=== PATIENT | female | born 1950 | race Caucasian/White ===

== ENCOUNTER 2020-04-29 13:51 | Outpatient (CLI) | payer MEDICARE, SELFPAY ==
--- NOTE | ~2020-04-29 | XR_ITS ---
EXAMINATION: XR clavicle BI INDICATION: History of right clavicle fracture TECHNIQUE: Two views of each clavicle are obtained. COMPARISON: 08/16/2019 FINDINGS: There is a chronic fracture of the right mid clavicle. The distal fracture fragment is bi manager nically inferiorly displaced by approximately 1.6 cm relative to the proximal fragment. Alignment at the right acromioclavicular joint appears normal. No acute fracture is identified. The left clavicle is unremarkable. IMPRESSION: 1. Chronic right clavicle fracture with chronic inferior displacement of the distal fracture fragment . Reviewed, dictated and finalized at location A. IMPRESSION: 1. Chronic right clavicle fracture with chronic inferior displacement of the di stal fracture fragment.
== END 2020-04-29 13:52 | disposition home or self-care (01) ==
LOC: ANHIMG 13:55
PROVIDERS: PCP Internal Medicine; Visit Provider Nurse Practitioner
DX: M89.8X1 Other specified disorders of bone, shoulder (principal); S42.001A Fracture of unspecified part of right clavicle, initial encounter for closed fracture; X58.XXXA Exposure to other specified factors, initial encounter
CPT/HCPCS: 73000

== ENCOUNTER 2020-06-22 12:44 | Outpatient (CLI) | payer MEDICARE, SELFPAY ==
--- NOTE | ~2020-06-22 | MR_ITS ---
EXAMINATION: MR shoulder RT wo con DATE: 06/22/2020 13:34 INDICATION: Right shoulder pain post chronic right clavicle fracture and rotator cuff tear. TECHNIQUE: Magnetic resonance imaging (MRI) of the right shoulder was performed without intravenous c ontrast. Sequences included axial PD-weighted FS FSE, coronal oblique PD-weighted FS FSE, coronal obl ique T2-weighted FS FSE, sagittal PD-weighted FS FSE, and sagittal T1-weighted SE. COMPARISON: None. FINDINGS: Coracoacromial arch: The acromion undersurface is curved in morphology (type II). The coracoacromial ligament is normal. M inimal acromioclavicular osteoarthritis. Rotator cuff: Mild supraspinatus and infraspinatus tendinopathy with a couple small partial-thickness intrasubstanc e tears along the superior facet footplate of the posterior supraspinatus tendon and middle facet aaron tplate of the anterior infraspinatus tendon. The tears each measures up to 3 mm AP and involves the p roximal one third of the tendon thickness. Mild tendinopathy without discrete tear at the cephalad as pect of the distal subscapularis tendon. The teres minor tendon is normal. Normal rotator cuff muscle bulk and signal. Biceps tendon, glenoid labrum and glenohumeral cartilage: Complete avulsion of the long head biceps tendon from its glenoid attachment with retraction of the t endon below the level of the intertubercular groove. There is a linear fluid signal labral tear exten ding from the 11:00-9:00 position of the posterior to posterior superior glenoid. This appears to inv olve small portion of the cartilage along the rim of the glenoid. More amorphous increased intrasubst ance signal at the superior glenoid labrum consistent with well-defined degenerative tearing. Additio nal labral degeneration with marginal osteophytes along the posterior inferior glenoid which replaces the majority of the labral tissue. Partial-thickness cartilage loss with generally smooth chondral s urface along the cephalad half of the glenoid and inferomedial aspect of the humeral head. Fluid: Physiologic amount of fluid in the glenohumeral joint and biceps tendon sheath. No loose osteochondra l bodies. Small amount of fluid in the subacromial/subdeltoid bursa consistent with mild bursitis. Bones: Chronic nonunited mid right clavicle fracture located near the lateral most insertion of the intact c oracoclavicular ligament. The distal margin of the fracture is not included within the [id number]-aaks. There is a residual small fluid collection located at the fracture defect. There is likely chronic p artial tear of the originating right pectoralis major muscle at the site of the fracture defect with mild muscular edema. IMPRESSION: 1. Chronic nonunited mid right clavicle fracture with small fluid collection at the fracture defect a nd localized partial tear of the originating pectoralis major muscle located at the fracture. Althoug h chronic there is residual reactive soft tissue edema centered around the fracture. 2. Mild glenohumeral osteoarthritis with superior to posterior inferior labral tear/degeneration. 3. Mild rotator cuff tendinopathy with a couple very small mild partial-thickness intrasubstance tear s at the greater tuberosity insertion of the posterior supraspinatus and anterior infraspinatus tendo ns. 4. Complete avulsion and distal retraction of the long head biceps tendon. Reviewed, dictated and finalized at location H. ODS STUDY ANALYST IMPRESSION: 1. Chronic nonunited mid right clavicle fracture with small fluid collection at the fracture defect and localized partial tear of the originating pectoralis m ajor muscle located at the fracture. Although chronic there is residual reactiv e soft tissue edema centered around the fracture. 2. Mild glenohu
== END 2020-06-22 12:45 | disposition home or self-care (01) ==
PROVIDERS: PCP Internal Medicine; Visit Provider Orthopaedic Surgery
DX: M19.011 Primary osteoarthritis, right shoulder (principal)
CPT/HCPCS: 73221

== ENCOUNTER 2020-11-11 14:17 | Outpatient (CLI) | payer MEDICARE, SELFPAY ==
--- NOTE | ~2020-11-11 | CT_ITS ---
EXAMINATION: CT facial bones w con DATE: 11/11/2020 14:49 INDICATION: Masses at the temples bilaterally. TECHNIQUE: Computed tomography (CT) of the facial bones and maxillofacial region was performed with 7 5 mL Omnipaque 350 intravenous contrast. Automated exposure control and iterative reconstruction tech Kabbageque were employed. The dose-length product was 303.17 mGy-cm. COMPARISON: Head CT 08/16/2019 FINDINGS: There is soft tissue attenuation in the subcutaneous fat of the cheeks. There is mild ather osclerosis in proximal right internal carotid artery with 0% stenosis relative to normal distal arter y lumen diameter. Left cervical carotid artery is normal. There are old healed fractures of the fransisca bular condyles bilaterally. There is severe cervical spondylosis. IMPRESSION: 1. Soft tissue attenuation in the subcutaneous fat of the cheeks, that may be inflammation/edema or c hanges of cosmetic procedure. Reviewed, dictated and finalized at location A. IMPRESSION: 1. Soft tissue attenuation in the subcutaneous fat of the cheeks, that may be i nflammation/edema or changes of cosmetic procedure.
[2020-11-11 14:38] LABS: Estimated Glomerular Filt Rate 49
== END 2020-11-11 14:18 | disposition home or self-care (01) ==
LOC: ANHIMG 14:18
PROVIDERS: PCP Internal Medicine; Visit Provider Nurse Practitioner
DX: R22.0 Localized swelling, mass and lump, head (principal)
CPT/HCPCS: 70487; Q9967

== ENCOUNTER → 2021-05-07 00:23 | Outpatient (CLI) | payer MEDICARE, SELFPAY ==
[2021-05-07 18:06] LABS: SARS-CoV-2 RNA PCR Negative
== END ==
PROVIDERS: PCP Internal Medicine; Visit Provider Internal Medicine Gastroenterology
DX: Z01.812 Encounter for preprocedural laboratory examination (principal); Z20.822 Contact with and (suspected) exposure to COVID-19
CPT/HCPCS: C9803; U0003; U0005

== ENCOUNTER 2021-05-11 01:53 | Day surgery (SDC) | payer MEDICARE, SELFPAY ==
[2021-05-05 10:15] VITALS: BMI 24.2
--- NOTE | 2021-05-11 08:47 | WPDANESEPPF ---
Anes - Initial Pre Proc Eval Procedure: Operation Date: 05/11/21 10:00 Proposed Procedures p Screening Colonoscopy - Juancarlos Mercado MD Date/Time: 05/11/21 08:47 Surgeon: Juancarlos Mercado MD Pre Op Diagnosis: neoplasm screening Patient Data Age: 70 Gender: F Height: 1.68 m Weight: 68 kg Allergies Allergy/AdvReac Type Severity Reaction Status Date / Time No Known Allergies Allergy Verified 11/09/20 13:58 Home Medications Medication Instructions Recorded Confirmed Type apixaban 5 mg tablet 5 mg PO DAILY tablet 09/29/19 05/05/21 History ascorbic acid (vitamin C) 1,000 mg 1 gm PO DAILY 09/29/19 05/05/21 History tablet cholecalciferol (vitamin D3) 125 5,000 unit PO DAILY 09/29/19 05/05/21 History mcg (5,000 unit) capsule isosorbide dinitrate 30 mg tablet 30 mg PO DAILY tablet 09/29/19 05/05/21 History lactobacillus combination no.8 3 3,000 mmu cells PO DAILY 09/29/19 05/05/21 History billion cell capsule vitamin B complex 1 cap PO DAILY 09/29/19 05/05/21 History semaglutide 0.5 mg SUB-Q WEEKLY ml 04/23/20 05/05/21 History topiramate 25 mg sprinkle capsule 25 mg PO DAILY 06/14/20 05/05/21 History biotin 1 mg capsule 1 mg PO DAILY 11/09/20 05/05/21 History flaxseed oil 1,000 mg capsule 1,000 mg PO DAILY 11/09/20 05/05/21 History fluticasone propionate 50 1 spray INTRANASAL DAILY 11/09/20 05/05/21 History mcg/actuation nasal spray,suspension lamotrigine 100 mg tablet 200 mg PO BID tablet 03/21/21 05/05/21 History trazodone 100 mg tablet 100 mg PO .HS #90 tablet 03/21/21 05/05/21 Rx ferrous sulfate [FeroSul] mg 05/05/21 History Patient hx anesthesia problems: none Family hx anesthesia problems: none Results Review: All pre-operative results and documents have been reviewed as part of the pre-operative evaluation. [facility] Past Medical History Medical History Anxiety Arthritis Bleeding gums Bleeding nose Chronic headaches Dizziness DVT (deep venous thrombosis) Ear pain Hearing loss Pulmonary embolism Rheumatoid arthritis Seasonal allergies Seizures Shortness of breath Wears glasses Surgical History Surgical History H/O total hysterectomy 1993 H/O: hysterectomy History of cosmetic plastic surgery Abdominoplasty, face lift, and neck lift 2013 History of gastrectomy lap sleeve gastectomy History of tonsillectomy 1952 Hx of cataract surgery Family History Family History Father Malignant neoplasm of prostate Other Neuropathy Social History Social History Smoking packs per day: 2 Smoking cigarettes per day: 40.0 Years smoked: 40 Smoking pack-years: 80.00 Smoking status: Former smoker Tobacco type: cigarettes Smoking end date: 07/30/06 Alcohol intake: current Drinks per week: 2 Alcohol use details: occasional Substance use: never Substance use type: does not use Living arrangements: alone Gender identity (if verbalized by the patient): Female Spiritual care concerns: No Anes - Eval Final PreProcedure Day of Procedure 05/11/21 08:47 Patient weight: obese Heart: regular rate and rhythm Lungs: clear to auscultation and normal air movement Airway: Mallampati scale class II Neurological: alert and oriented Last oral intake: >/= 8 hours ASA classification: III Emergent: no Anesthetic plan: proceed Anesthesia type and monitoring: general GIVS Results Review: All pre-operative results and documents have been reviewed as part of the pre-operative evaluation. Informed Consent: The patient's anesthetic plan and its attendant risks and benefits were discussed with the patient/family/POA. Questions were solicited and answers provided to the satisfaction of the patient/family/POA.
[2021-05-11] MEDS: LACTATED RINGERS 1,000 ML 150 ML IV CONT (09:02)
[2021-05-11 09:06] VITALS: BP 106/69; PULSE 56; RESP 18; TEMP 36.1; O2SAT 100
--- NOTE | 2021-05-11 09:13 | WPDGICN ---
Assessment and Plan Assessment and plan (1) Screening for colon cancer: Code(s): Z12.11 - Encounter for screening for malignant neoplasm of colon Status: Acute Assessment and Plan: Patient presents for screening colonoscopy. She reports is been 15 years since her last exam. Further recommendations will be given after endoscopy. GI Consult Note Consult date/time: 05/11/21 09:13 HPI: Layla Reece is a 70 year old female Presents for screening colonoscopy. Patient reports that her current weight appetite bowel movements are normal. She denies abdominal pain. She reports her last colonoscopy was 15 years ago. Family history is noncontributory. Patient presents today for screening colonoscopy. Patient has a distant history of a sleeve gastrectomy. Review of Systems Review of Systems: All systems reviewed & are unremarkable except as noted in HPI and below PMFSH Past Medical History Medical History Anxiety Arthritis Bleeding gums Bleeding nose Chronic headaches Dizziness DVT (deep venous thrombosis) Ear pain Hearing loss Pulmonary embolism Rheumatoid arthritis Seasonal allergies Seizures Shortness of breath Wears glasses Surgical History Surgical History H/O total hysterectomy 1993 H/O: hysterectomy History of cosmetic plastic surgery Abdominoplasty, face lift, and neck lift 2013 History of gastrectomy lap sleeve gastectomy History of tonsillectomy 1952 Hx of cataract surgery Family History Family History Father Malignant neoplasm of prostate Other Neuropathy Social History Social History Smoking packs per day: 2 Smoking cigarettes per day: 40.0 Years smoked: 40 Smoking pack-years: 80.00 Smoking status: Former smoker Tobacco type: cigarettes Smoking end date: 07/30/06 Alcohol intake: current Drinks per week: 2 Alcohol use details: occasional Substance use: never Substance use type: does not use Living arrangements: alone Gender identity (if verbalized by the patient): Female Spiritual care concerns: No Meds Home Medications and Allergies Home Medications Medication Instructions Recorded Confirmed Type apixaban 5 mg tablet 5 mg PO DAILY tablet 09/29/19 05/11/21 History ascorbic acid (vitamin C) 1,000 mg 1 gm PO DAILY 09/29/19 05/05/21 History tablet cholecalciferol (vitamin D3) 125 5,000 unit PO DAILY 09/29/19 05/05/21 History mcg (5,000 unit) capsule isosorbide dinitrate 30 mg tablet 30 mg PO DAILY tablet 09/29/19 05/05/21 History lactobacillus combination no.8 3 3,000 mmu cells PO DAILY 09/29/19 05/05/21 History billion cell capsule vitamin B complex 1 cap PO DAILY 09/29/19 05/05/21 History semaglutide 0.5 mg SUB-Q WEEKLY ml 04/23/20 05/05/21 History topiramate 25 mg sprinkle capsule 25 mg PO DAILY 06/14/20 05/05/21 History biotin 1 mg capsule 1 mg PO DAILY 11/09/20 05/05/21 History flaxseed oil 1,000 mg capsule 1,000 mg PO DAILY 11/09/20 05/05/21 History fluticasone propionate 50 1 spray INTRANASAL DAILY 11/09/20 05/05/21 History mcg/actuation nasal spray,suspension lamotrigine 100 mg tablet 200 mg PO BID tablet 03/21/21 05/11/21 History trazodone 100 mg tablet 100 mg PO .HS #90 tablet 03/21/21 05/05/21 Rx ferrous sulfate [FeroSul] mg 05/05/21 History Allergies Allergy/AdvReac Type Severity Reaction Status Date / Time No Known Allergies Allergy Verified 05/11/21 09:03 Vital Signs Vital Signs - 24 hr 05/11/21 09:06 Temperature 97 F L Pulse Rate 56 L Respiratory Rate 18 Blood Pressure 106/69 Pulse Oximetry 100 Exam Narrative: Physical exam reveals patient to be alert. Vital signs stable. HEENT exam is unremarkable. Patient is anicteric. Lungs are cl
[2021-05-11 09:46] VITALS: BP 103/58; PULSE 54; RESP 34; O2SAT 98
[2021-05-11 09:56] VITALS: BP 108/64; PULSE 56; RESP 15; O2SAT 98
[2021-05-11 10:06] VITALS: BP 126/68; PULSE 57; RESP 14; O2SAT 99
== END 2021-05-11 10:20 | disposition home or self-care (01) ==
PROVIDERS: PCP Internal Medicine; Visit Provider Internal Medicine Gastroenterology
PROC: 0DJD8ZZ Inspection of Lower Intestinal Tract, Via Natural or Artificial Opening Endoscopic (ICD-10-PCS; CPT 45378; principal; 2021-05-11 10:00)
DX: Z12.11 Encounter for screening for malignant neoplasm of colon (principal); D12.5 Benign neoplasm of sigmoid colon; K64.8 Other hemorrhoids; K57.30 Diverticulosis of large intestine without perforation or abscess without bleeding; M06.9 Rheumatoid arthritis, unspecified; G40.909 Epilepsy, unspecified, not intractable, without status epilepticus; F41.9 Anxiety disorder, unspecified; Z86.718 Personal history of other venous thrombosis and embolism; Z86.711 Personal history of pulmonary embolism; Z98.84 Bariatric surgery status; Z87.891 Personal history of nicotine dependence; Z79.01 Long term (current) use of anticoagulants
CPT/HCPCS: 45385; 88305; J7120

== ENCOUNTER 2021-06-09 08:32 | Outpatient (CLI) | payer MEDICARE, SELFPAY ==
--- NOTE | ~2021-06-09 | DEXA_ITS ---
Bone Density Report Name: Layla Reece Age: 70 Sex: Female Ethnicity: White Date of : 1950 Indication: postmenopausal; height loss; seizure disorder; hysterectomy; Referring Provider: Shakira Caro Study: Bone densitometry was performed. Exam Date: June 09, 2021 Accession number: [id number] Bone Density: Region BMD T-score Z-score Classification AP Spine (L1-L4) 0.951 -0.9 1.4 Normal Femoral Neck (Left) 0.731 -1.1 0.9 Osteopenia Total Hip (Left) 0.869 -0.6 1.1 Normal Total Hip Bilateral Avg 0.846 -0.8 0.9 Normal Femoral Neck (Right) 0.737 -1.0 1.0 Normal Total Hip (Right) 0.822 -1.0 0.7 Normal World Health Organization criteria for BMD impression classify patients as: Normal (T-score at or above -1.0), Osteopenia (T-score between -1.0 and -2.5), or Osteoporosis (T-score at or below -2.5). 10-year Fracture Risk(1): Major Osteoporotic Fracture 9.5% Hip Fracture 1.3% Reported Risk Factors: [place] (), Neck BMD=0.731, BMI=23.9 (1) FRAX(R) Version 3.08. Fracture probability calculated for an untreated patient. Fracture probability may be lower if the patient has received treatment. Clinical Information Provided by Patient: Has used the following medications: Vitamin D Has the following medical conditions: Any Seizure Disorders, Hysterectomy Patient maximum height was 68 Menopause Age: 45 No regular weight bearing exercise Drinks caffeinated beverages Onset of menses at age 10 Number of children 3 Impression: The patient has low bone mass, based on the Left Femoral Neck T-score. The patient has an estimated ten-year risk of hip fracture of 1.3% and an estimated ten-year risk of major fracture of 9.5%, based on the WHO FRAX algorithm. Discussion: BONE DENSITY IS LOW AT ONE OR MORE SKELETAL SITES. This patient's lowest T-score is low at one or more skeletal sites. It meets the World Health Organization's (WHO) criteria for ?low bone mass? (T-score between -1.0 and -2.5). The patient's 10-year risk of fracture as calculated by FRAX is less than the threshold where pharmacological therapy is recommended by the National Osteoporosis Foundation (NOF). However, all treatment decisions require clinical judgment and consideration of individual patient factors, including patient preferences, comorbidities, previous drug use, risk factors not captured in the FRAX model (e.g., frailty, falls, vitamin D deficiency, increased bone turnover, interval significant decline in bone density) and possible under or overestimation of fracture risk by FRAX. The patient should follow a healthful lifestyle (good nutrition with adequate calcium and vitamin D, and appropriate weight-bearing exercise). Follow-Up: Consider repeating this study in 2 to 3 years to reassess this patient's status, or sooner
--- NOTE | ~2021-06-09 | MM_ITS ---
EXAMINATION: MM screening anoop BI w gabe HISTORY: Screening mammogram TECHNIQUE: Craniocaudal and mediolateral oblique 3-D tomosynthesis images were obtained and synthetic 2-D images were generated. CAD analysis was submitted and interpreted. COMPARISON: No prior mammogram is available for comparison at this institution. BREAST PARENCHYMAL COMPOSITION: There are scattered areas of fibroglandular density. FINDINGS: There is no evidence of suspicious mass, calcification, or architectural distortion to sugg est malignancy in either breast. There has been no suspicious interval change. IMPRESSION: 1. No mammographic evidence of malignancy. 2. Recommend routine screening mammography in one year. BI-RADS Category 1: Negative Reviewed, dictated and finalized at location A. R PILOT
== END 2021-06-09 08:33 | disposition home or self-care (01) ==
LOC: ANHIMG 08:37
PROVIDERS: PCP Internal Medicine; Visit Provider Clinical Nurse Specialist
DX: Z12.31 Encounter for screening mammogram for malignant neoplasm of breast (principal); Z78.0 Asymptomatic menopausal state; M85.852 Other specified disorders of bone density and structure, left thigh
CPT/HCPCS: 77063; 77067; 77080

== ENCOUNTER 2021-06-14 14:19 | Emergency (ER) | payer MEDICARE, SELFPAY ==
--- NOTE | ~2021-06-14 | CT_ITS ---
EXAMINATION: CT brain wo con EXAM DATE: 06/14/2021 15:03 INDICATION: Possible seizure . History of seizures. TECHNIQUE: Spiral CT of the head was performed without contrast. Axial, coronal and sagittal images were reviewed. The dose-length product (DLP) for this examination was 605.33 mGy-cm. The exposure w as tailored according to patient size, and iterative reconstruction (ASIR) was used as additional dos e reduction technique. Comparison is made to prior examination from 08/16/2019. FINDINGS: There is no acute intraparenchymal hemorrhage. No evidence of intraparenchymal brain mass lesion. No evidence of acute infarction. Please note that initial head CT has limited sensitivity f or small or acute infarctions. There is mild periventricular and subcortical hypodensity, nonspecific but probably related to small vessel ischemic disease. There is mild prominence of the sulci and v entricles related to cerebral atrophy. There is intracranial carotid arteriosclerosis. There are n o extra-axial collections. There is no mass effect or midline shift. Patient has had bilateral ocul ar lens surgery. Soft tissue is unremarkable. Mild right maxillary sinus and bilateral ethmoid muco periosteal thickening. IMPRESSION: 1. No acute intracranial findings. 2. Chronic age related findings. Reviewed, dictated and finalized at location B. GENCY MEDICINE NURSE PRACTITIONER
[2021-06-14 14:26] VITALS: BP 131/83; PULSE 102; RESP 16; TEMP 37.7; O2SAT 98
[2021-06-14] MEDS: LORazepam INJ (*CRX) 2 MG/ML VIAL (14:44)
[2021-06-14 15:08] LABS: Basophils Percent Auto 0.3 % (0.2-1.2); Eosinophils Percent Auto 0.2 % (0-4.4); Hematocrit 36.2 % (37.0-47.0); Hemoglobin 12.2 g/dL (12.0-15.0); Immature Granulocyte Absolute 0.03 K/mm3 (0.00-0.031); Immature Granulocyte Percent A 0.5 % (0-0.5); Lymphocytes Percent Auto 13.4 % (18.3-44.2); Mean Corpuscular HGB Conc 33.7 g/dl (32-36); Mean Corpuscular Hemoglobin 28.8 pg (26-34); Mean Corpuscular Volume 85.4 fl (80-100); Mean Platelet Volume 9.5 fl (7.4-10.4); Monocytes Absolute Auto 0.5 K/mm3 (0.1-0.6); Monocytes Percent Auto 7.6 % (2.6-8.5); Neutrophils Absolute Auto 4.6 K/mm3 (1.3-6.7); Platelet Count Result 280 k/mm3 (150-375); Red Blood Count 4.24 M/mm3 (4.2-5.4); Red Cell Distribution Width 13.2 % (11.5-14.5)
[2021-06-14 15:17] LABS: Alanine Aminotransferase 24 U/L (4-35); Albumin Level 4.6 g/dL (3.5-5.1); Alkaline Phosphatase 72 U/L (38-126); Anion Gap 10 mmol/L (8-16); Aspartate Amino Transferase 38 U/L (14-36); Bilirubin,Total 0.4 mg/dL (0.2-1.3); Blood Urea Nitrogen 11 mg/dL (7-17); Calcium 9.6 mg/dL (8.4-10.2); Carbon Dioxide 20 mmol/L (22-30); Chloride 108 mmol/L (98-107); Estimated CRCL calculation 32 ml/min; Estimated Glomerular Filt Rate 49; Glucose 112 mg/dL (65-110); Potassium 3.9 mmol/L (3.4-5.0); Sodium 138 mmol/L (137-145)
[2021-06-14 16:24] VITALS: BP 111/66; PULSE 57; RESP 14; O2SAT 97
--- NOTE | 2021-06-14 16:36 | ED.GENADULT ---
HPI - General Adult General Chief complaint: Seizure Stated complaint: SZ, Screaming Time Seen by Provider: 06/14/21 14:47 Source: patient, EMS and RN notes reviewed Mode of arrival: EMS Limitations: clinical condition History of Present Illness HPI narrative: Patient 70 years old white female brought to the emergency room by ambulance for possible post ictal. Patient son at the bedside telling me that patient start screaming, holding her head by both hands, unable to tolerate noise or light when the house seat pack inspector came to inspect the house for sale. Also telling me that selling the house is very stressful to her. Nobody has seen the patient having seizure. History of seizure. Currently patient is screaming, facing down in bed, putting hands on her ears, does not communicate with any staff members or responding to our questions. Related Data Home Medications Medication Instructions Recorded Confirmed apixaban 5 mg tablet 5 mg PO DAILY tablet 09/29/19 05/11/21 ascorbic acid (vitamin C) 1,000 mg 1 gm PO DAILY 09/29/19 05/05/21 tablet cholecalciferol (vitamin D3) 125 5,000 unit PO DAILY 09/29/19 05/05/21 mcg (5,000 unit) capsule isosorbide dinitrate 30 mg tablet 30 mg PO DAILY tablet 09/29/19 05/05/21 lactobacillus combination no.8 3 3,000 mmu cells PO DAILY 09/29/19 05/05/21 billion cell capsule vitamin B complex 1 cap PO DAILY 09/29/19 05/05/21 semaglutide 0.5 mg SUB-Q WEEKLY ml 04/23/20 05/05/21 topiramate 25 mg sprinkle capsule 25 mg PO DAILY 06/14/20 05/05/21 biotin 1 mg capsule 1 mg PO DAILY 11/09/20 05/05/21 flaxseed oil 1,000 mg capsule 1,000 mg PO DAILY 11/09/20 05/05/21 fluticasone propionate 50 1 spray INTRANASAL DAILY 11/09/20 05/05/21 mcg/actuation nasal spray,suspension lamotrigine 100 mg tablet 200 mg PO BID tablet 03/21/21 05/11/21 ferrous sulfate [FeroSul] mg 05/05/21 Allergies Allergy/AdvReac Type Severity Reaction Status Date / Time No Known Allergies Allergy Verified 05/11/21 09:03 Review of Systems Review of Systems: ROS unobtainable: Yes unobtainable due to medical condition PMFSH Past Medical History Medical History Anxiety Arthritis Bleeding gums Bleeding nose Chronic headaches Dizziness DVT (deep venous thrombosis) Ear pain Hearing loss Pulmonary embolism Rheumatoid arthritis Seasonal allergies Seizures Shortness of breath Wears glasses Surgical History Surgical History H/O total hysterectomy 1993 H/O: hysterectomy History of cosmetic plastic surgery Abdominoplasty, face lift, and neck lift 2013 History of gastrectomy lap sleeve gastectomy History of tonsillectomy 1952 Hx of cataract surgery Family History Family History Father Malignant neoplasm of prostate Other Neuropathy Social History Social History Smoking packs per day: 2 Smoking cigarettes per day: 40.0 Years smoked: 40 Smoking pack-years: 80.00 Smoking status: Former smoker Tobacco type: cigarettes Smoking end date: 07/30/06 Alcohol intake: current Drinks per week: 2 Alcohol use details: occasional Substance use: never Substance use type: does not use Gender identity (if verbalized by the patient): Female Spiritual care concerns: No Exam Narrative: General appearance: Well-developed, well-nourished, screaming, does not answer any questions Skin: Normal color Head: Normocephalic, nontraumatic Eyes: Unable to examine. Patient facing down in bed holding hands on ears ENT: Unable to examine Neck: Unable to examine Chest and respiratory: Airway patent, no respiratory distress, no accessory muscle use Heart: Regular rate/rhythm Abdomen: Unable to examine s Vascular: Unable to examine Musculoskeletal: Move all extremities Neurologic: Alert, not re
[2021-06-14 17:30] VITALS: BP 131/70; PULSE 67; RESP 18; O2SAT 98
== END 2021-06-14 17:33 | disposition home or self-care (01) ==
PROVIDERS: Emergency Provider Emergency Medicine; PCP Internal Medicine
DX: F41.0 Panic disorder [episodic paroxysmal anxiety] (principal); R56.9 Unspecified convulsions; M19.90 Unspecified osteoarthritis, unspecified site; Z86.718 Personal history of other venous thrombosis and embolism; Z86.711 Personal history of pulmonary embolism; M06.9 Rheumatoid arthritis, unspecified; Z98.49 Cataract extraction status, unspecified eye; Z87.891 Personal history of nicotine dependence; Z79.01 Long term (current) use of anticoagulants; Z79.899 Other long term (current) drug therapy; Z98.84 Bariatric surgery status
CPT/HCPCS: 36415; 70450; 80053; 85025; 96374; 99284; J2060

== ENCOUNTER 2023-08-29 06:52 | Outpatient (CLI) | payer MEDICARE, SELFPAY ==
[2023-08-29 07:36] LABS: Appearance Urine Cloudy (Clear); Bacteria Urine 4+ /hpf; Bilirubin Urine Negative (Negative); Blood Urine Negative (Negative); Color Urine Yellow (Yellow); Glucose Urine UA Negative (Negative); Ketones Urine Negative (Negative); Leukocyte Esterase Ur 3+ LEU/UL (Negative); Nitrate Urine Positive (Negative); Non Pathogenic Casts 0-2; Protein Urine Negative (Negative); RBC Urine 0-2 /hpf (0-2); Specific Grav Ur 1.016 (1.001-1.035); Squamous Epithelial Cell Urine None seen /hpf (Few); Urobilinogen Urine 0.2 mg/dL (<2.0); WBC Urine 51-100 /hpf
[2023-08-29 07:46] LABS: Cholesterol 213 mg/dL (0-200); HDL Direct 77 mg/dL; Triglycerides 77 mg/dL (<150)
[2023-08-29 07:50] LABS: Add Urine Microscopic? YES
[2023-08-29 07:57] LABS: LDL Cholesterol Direct 104 mg/dL
== END 2023-08-29 06:53 | disposition home or self-care (01) ==
LOC: ANHLAB 06:55
PROVIDERS: PCP Internal Medicine; Visit Provider Clinical Nurse Specialist
DX: E78.89 Other lipoprotein metabolism disorders (principal); Z13.220 Encounter for screening for lipoid disorders; R39.9 Unspecified symptoms and signs involving the genitourinary system; G47.00 Insomnia, unspecified
CPT/HCPCS: 36415; 80061; 81001; 84443; 87077; 87086; 87186

== ENCOUNTER 2023-09-28 15:03 | Outpatient (CLI) | payer MEDICARE, SELFPAY ==
[2023-09-28 15:29] LABS: Appearance Urine Clear (Clear); Bacteria Urine None Seen /hpf; Bilirubin Urine Negative (Negative); Blood Urine Negative (Negative); Color Urine Yellow (Yellow); Glucose Urine UA Negative (Negative); Ketones Urine Negative (Negative); Leukocyte Esterase Ur 1+ LEU/UL (Negative); Need Manual Microscopic Reviewed; Nitrate Urine Negative (Negative); Non Pathogenic Casts 0-2; Protein Urine Negative (Negative); RBC Urine 0-2 /hpf (0-2); Specific Grav Ur 1.012 (1.001-1.035); Squamous Epithelial Cell Urine None seen /hpf (Few); Urobilinogen Urine 0.2 mg/dL (<2.0); WBC Urine 0-5 /hpf; pH Urine 6.5 (5.0-9.0)
[2023-09-28 15:55] LABS: Add Urine Microscopic? YES
== END 2023-09-28 15:04 | disposition home or self-care (01) ==
LOC: ANHLAB 15:05
PROVIDERS: PCP Internal Medicine; Visit Provider Clinical Nurse Specialist
DX: N39.0 Urinary tract infection, site not specified (principal)
CPT/HCPCS: 81001

== ENCOUNTER 2023-10-09 13:44 | Outpatient (CLI) | payer MEDICARE, SELFPAY ==
[2023-10-09 14:26] LABS: Appearance Urine Cloudy (Clear); Bacteria Urine None Seen /hpf; Bilirubin Urine Negative (Negative); Blood Urine Non-Hemolyzed Trace (Negative); Color Urine Yellow (Yellow); Glucose Urine UA Negative (Negative); Ketones Urine Negative (Negative); Leukocyte Esterase Ur 3+ LEU/UL (Negative); Nitrate Urine Negative (Negative); Non Pathogenic Casts 0-2; Protein Urine Negative (Negative); RBC Urine 0-2 /hpf (0-2); Specific Grav Ur 1.009 (1.001-1.035); Squamous Epithelial Cell Urine None seen /hpf (Few); Urobilinogen Urine 0.2 mg/dL (<2.0); WBC Urine >100 /hpf (0-3)
[2023-10-09 14:37] LABS: Add Urine Microscopic? YES
== END 2023-10-09 13:45 | disposition home or self-care (01) ==
PROVIDERS: PCP Internal Medicine; Visit Provider Clinical Nurse Specialist
DX: R39.9 Unspecified symptoms and signs involving the genitourinary system (principal)
CPT/HCPCS: 87077; 87086; 87088; 87186

== ENCOUNTER 2024-04-17 09:39 | Outpatient (CLI) | payer MEDICARE, SELFPAY ==
[2024-04-17 13:42] LABS: Basophils Percent Auto 0.3 % (0.2-1.2); Eosinophils Absolute Auto 0.1 K/mm3 (0-0.3); Hematocrit 38.7 % (37.0-47.0); Immature Granulocyte Absolute 0.01 K/mm3 (0.00-0.031); Immature Granulocyte Percent A 0.2 % (0-0.5); Lymphocytes Absolute Auto 1.37 K/mm3 (0.9-3.2); Lymphocytes Percent Auto 21.5 % (18.3-44.2); Mean Corpuscular Volume 90.4 fl (80-100); Mean Platelet Volume 10.3 fl (7.4-10.4); Monocytes Absolute Auto 0.5 K/mm3 (0.1-0.6); Monocytes Percent Auto 8.2 % (2.6-8.5); Neutrophils Absolute Auto 4.3 K/mm3 (1.3-6.7); Neutrophils Percent Auto 67.8 % (45.5-73.1); Platelet Count Result 306 k/mm3 (150-375); Red Blood Count 4.28 M/mm3 (4.2-5.4); Red Cell Distribution Width 14.6 % (11.5-14.5); White Blood Count 6.4 K/mm3 (4.5-10.0)
[2024-04-17 13:51] LABS: Alanine Aminotransferase 29 U/L (6-35); Albumin Level 4.5 g/dL (3.5-5.1); Alkaline Phosphatase 84 U/L (38-126); Anion Gap 7 mmol/L (4-12); Aspartate Amino Transferase 62 U/L (14-36); Bilirubin,Total 0.3 mg/dL (0.2-1.3); Blood Urea Nitrogen 14 mg/dL (7-17); Calcium 9.9 mg/dL (8.4-10.2); Carbon Dioxide 31 mmol/L (22-30); Chloride 100 mmol/L (98-107); Cholesterol 211 mg/dL (0-200); Estimated Glomerular Filt Rate 54; Glucose 83 mg/dL (65-110); HDL Direct 83 mg/dL; Potassium 4.9 mmol/L (3.4-5.0); Sodium 138 mmol/L (137-145); Triglycerides 115 mg/dL (<150)
[2024-04-17 13:59] LABS: LDL Cholesterol Direct 103 mg/dL
[2024-04-17 14:12] LABS: Thyroid Stimulating Hormone < 0.015 uIU/mL (0.465-4.680)
[2024-04-17 14:32] LABS: Vitamin D 25 Hydroxy 87.7 ng/mL
== END 2024-04-17 09:40 | disposition home or self-care (01) ==
LOC: ANHGOSHLAB 09:40
PROVIDERS: PCP Internal Medicine; Visit Provider Clinical Nurse Specialist
DX: D64.9 Anemia, unspecified (principal); E55.9 Vitamin D deficiency, unspecified; G47.00 Insomnia, unspecified; R53.83 Other fatigue; Z13.220 Encounter for screening for lipoid disorders; R79.89 Other specified abnormal findings of blood chemistry
CPT/HCPCS: 36415; 80053; 80061; 82306; 84443; 85025

== ENCOUNTER 2024-04-24 13:00 | Outpatient (CLI) | payer MEDICARE, SELFPAY | END 2024-04-24 13:01 | disposition home or self-care (01) | LOC: ANHGOSHLAB 13:01 | PROVIDERS: PCP Internal Medicine; Visit Provider Clinical Nurse Specialist | DX: G47.00 Insomnia, unspecified (principal); R79.89 Other specified abnormal findings of blood chemistry | CPT/HCPCS: 36415; 84443 ==

== ENCOUNTER 2024-04-29 15:32 | Outpatient (CLI) | payer MEDICARE, SELFPAY ==
--- NOTE | ~2024-04-29 | XR_ITS ---
[id number] Ordering provider: DWAYNE Velez-C History: . M79.672 - Pain in left foot . Comparison: None. FINDINGS: BONES: Possibility of fracture in the distal metaphysis of the fifth metatarsal bone is not excluded. Follow-up advised.. Flat foot is noted. Calcaneus spur. Ossification of the insertion of the tendo A chilles. JOINT SPACES: Narrowing of the proximal and distal interphalangeal joints. No tarsal coalition. SOFT TISSUES: Normal. IMPRESSION: Possibility of fracture in the distal metaphysis of the fifth metatarsal bone is not excluded. Follow -up advised. Polyarticular osteoarthritic changes. Reviewed, dictated and finalized at location A. IMPRESSION: Possibility of fracture in the distal metaphysis of the fifth metatarsal bone i s not excluded. Follow-up advised. Polyarticular osteoarthritic changes.
== END 2024-04-29 15:33 | disposition home or self-care (01) ==
LOC: ANHIMG 15:33
PROVIDERS: PCP Internal Medicine; Visit Provider Clinical Nurse Specialist
DX: M19.072 Primary osteoarthritis, left ankle and foot (principal)
CPT/HCPCS: 73630

== ENCOUNTER 2024-06-03 09:19 | Emergency (ER) | payer MEDICARE, SELFPAY ==
[2024-06-03] VITALS (7 sets, daily range): BP systolic 97–128; BP diastolic 59–69; PULSE 51–66; RESP 12–19; TEMP 36.6; O2SAT 93–100
--- NOTE | ~2024-06-03 | XR_ITS ---
XR chest 2V Ordering provider: Delmi Stevens PA-C History: 73 years Female with . cp AND SOB . Comparison: August 16, 2019 FINDINGS: MEDIASTINUM: The cardiac silhouette is not enlarged. LUNGS: No effusions or pneumothorax. Prominent bronchovascular markings in the lower lobes are noted. Possibility of bronchitis, versus early bronchopneumonia is not excluded. Follow-up advised. Underlying emphysematous changes. OTHER: No free air under the diaphragm. Degenerative changes of the spine. IMPRESSION: Prominent bronchovascular markings in the lower lobes which may indicate bronchitis versus early bron chopneumonia. Follow-up advised. Reviewed, dictated and finalized at location A. RN IMPRESSION: Prominent bronchovascular markings in the lower lobes which may indicate bronch itis versus early bronchopneumonia. Follow-up advised.
--- NOTE | 2024-06-03 09:26 | ECG_ITS ---
Test Date: 2024-06-03 09:28:41 Measurements Intervals [place] Rate: 61 P: 59 CT: 163 QRS: 0 QRSD: 106 T: 42 QT: 433 QTc: 440 Interpretive Statements SINUS RHYTHM NORMAL ECG No previous ECG available for comparison Electronically Signed On 06-03-2024 09:54:06 PRECISION DANCER by Cecil Uribe D.O.
--- NOTE | 2024-06-03 09:31 | ED_ITS ---
HPI - Chest Pain General Chief Complaint: Chest Pain Stated Complaint: CP x 30 min Time Seen by Provider: 06/03/24 09:21 Source: patient Mode of arrival: EMS Limitations: no limitations History of Present Illness HPI narrative: Patient is a 73-year-old female, past medical history of epilepsy on lamotrigine and topiramate, history of PE on Eliquis, who presents the ED via EMS with report of chest pain. Patient reports she was playing a computer game around 830a.m. this morning she began to have sharp midsternal CP. EMS was contacted. By the time EMS arrived, pain had subsided on its own, but patient prompted here for further evaluation. Patient currently rates her pain a 2/10 and more of a soreness in her midsternal chest. She did report feeling slight radiation of chest pain into neck. She also reported having mild shortness breath and lightheadedness. Denies nausea, vomiting, abdominal pain, lower extremity pain or swelling, recent cough or cold symptoms. Patient sees Dr. Huddleston with Cardiology at [facility]. Related Data Home Medications Medication Instructions Recorded Confirmed apixaban 5 mg tablet (Eliquis) 5 mg PO DAILY 09/29/19 05/01/24 ascorbic acid (vitamin C) 1,000 mg 1 gm PO DAILY 09/29/19 05/01/24 tablet cholecalciferol (vitamin D3) 125 5,000 unit PO DAILY 09/29/19 05/01/24 mcg (5,000 unit) capsule isosorbide dinitrate 30 mg tablet 30 mg PO DAILY 09/29/19 05/01/24 lactobacillus combination no.8 3 3,000 mmu cells PO DAILY 09/29/19 05/01/24 billion cell capsule (Adult Probiotic) vitamin B complex 1 cap PO DAILY 09/29/19 05/01/24 flaxseed oil 1,000 mg capsule 1,000 mg PO DAILY 11/09/20 05/01/24 lamotrigine 100 mg tablet 200 mg PO BID 03/21/21 05/01/24 multivitamin 1 tablet PO DAILY 03/30/22 05/01/24 semaglutide 0.25 mg or 0.5 mg (2 1 mg subcut WEEKLY 03/30/22 05/01/24 mg/1.5 mL) subcutaneous pen injector ([employer]) topiramate 25 mg sprinkle capsule 25 mg PO BID 03/30/22 05/01/24 fluticasone propionate 50 1 spray intranasal DAILY PRN 04/09/23 05/01/24 mcg/actuation nasal spray,suspension (Allergy Relief (fluticasone)) Allergies Allergy/AdvReac Type Severity Reaction Status Date / Time No Known Allergies Allergy Verified 05/01/24 14:53 Review of Systems Review of Systems: All systems reviewed & are unremarkable except as noted in HPI. All systems reviewed & are unremarkable except as noted in HPI and below PMFSH Past Medical History Medical History Anxiety Arthritis Bleeding gums Bleeding nose Chronic headaches Dizziness DVT (deep venous thrombosis) Ear pain Hearing loss History of anesthesia reaction Osteoporosis Pulmonary embolism Rheumatoid arthritis Seasonal allergies Seizures Shortness of breath Wears glasses Surgical History Surgical History H/O total hysterectomy 1993 H/O: hysterectomy History of cosmetic plastic surgery Abdominoplasty, face lift, and neck lift 2013 History of gastrectomy lap sleeve gastectomy History of tonsillectomy 1952 Hx of cataract surgery Family History Family History Father Malignant neoplasm of prostate Other Neuropathy Social History Social History Smoking packs per day: 2 Smoking cigarettes per day: 40.0 Years smoked: 40 Smoking pack-years: 80.00 Smoking status: Former smoker Tobacco type: cigarettes Smoking end date: 07/30/06 Alcohol intake: current Drinks per week: 2 Alcohol use details: occasional Substance use: never Substance use type: does not use Lack of Transportation: No Lack of Food: Never True Current Housing: I Have Housing Concerned About Future Housing: No Difficulty Paying Gas/Electric Bills: No Difficulty Paying for Meds: No Currently Unemployed: No Difficulty w/ Childcare or Family Care: No Living arrangements: alone Gender identity (if verbalized by the patient): Female Spiritual care concerns: No Exam Narrative: GENERAL: Elderly but well appearing, well-nourished, non-toxic, in no acute distress. HEAD: Normocephalic, atraumatic. RESPIRATORY: Airway patent, respirations nonlabored. Clear to auscultation bilaterally, no rales, rhonchi, wheezing. CARDIOVASCULAR: Regular rate and rhythm without murmurs, rubs, or gallops. MUSCULOSKELETAL: Moves all extremities. No gross deformities. Mild TTP over lower sternum, reproducing pain. No peripheral edema. SKIN: Warm, dry, normal color. NEURO: A&O X3. Speech clear. PSYCHIATRIC: Appropriate mood and affect. Normal interaction. Course Vital Signs Vital signs: Vital Signs Temperature 97.9 F 06/03/24 09:19 Pulse Rate 66 06/03/24 09:19 Respiratory Rate 18 06/03/24 09:19 Blood Pressure 128/69 06/03/24 09:19 Pulse Oximetry 95 06/03/24 09:19 Oxygen Delivery Room Air 06/03/24 09:19 Temperature 97.9 F 06/03/24 09:19 Pulse Rate 54 L 06/03/24 13:03 Respiratory Rate 17 06/03/24 13:03 Blood Pressure 97/59 L 06/03/24 13:03 Pulse Oximetry 95 06/03/24 13:03 Oxygen Delivery Room Air 06/03/24 09:32 MDM - Chest Pain MDM Narrative Medical decision making narrative: EKG nonischemic. No concerning ST changes. Baseline troponin is undetectable. Given onset of chest pain this morning, will obtain 3 hour troponin. BNP is within normal limits. Chest x-ray w/ possible bronchitis. Patient has not had any recent cough or cold sx's, fevers, congestion, low suspicion for this. Patient is on Eliquis and compliant with this. No tachycardia/hypoxia noted today. Low suspicion for PE. Remainder basic laboratory studies are unremarkable. HEART score =3. 3hr troponin also undetectable. Patient has been resting comfortably throughout ED stay. She denies further chest pain. I have low suspicion for ACS at this time. Discussed discharge home versus admission for continued workup. Patient feels comfortable going home. 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 Patient voiced understanding. Again feels comfortable going home. Discharged in stable condition. Blood pressure was noted to be slightly low in the upper 90s systolic. Patient reports this is normal for her. Consistent with previous records in the ED. she was given fluids in the ED. Medical Records Data Attestation: I reviewed the patient's medical records. Lab Data Attestation: I reviewed the patient's lab results. 06/03/24 09:35 06/03/24 09:35 Labs: Lab Results 06/03/24 06/03/24 06/03/24 Range/Units 09:35 09:36 12:16 WBC 7.3 (4.5-10.0) K/mm3 RBC 4.32 (4.2-5.4) M/mm3 Hgb 12.3 (12.0-15.0) g/dL Hct 37.7 (37.0-47.0) % MCV 87.3 (80-100) fl MCH 28.5 (26-34) pg MCHC 32.6 (32-36) g/dl RDW 14.1 (11.5-14.5) % Plt Count 270 (150-375) k/mm3 MPV 9.3 (7.4-10.4) fl Immature Gran % (Auto) 0.8 H (0-0.5) % Neut % (Auto) 64.9 (45.5-73.1) % Lymph % (Auto) 25.4 (18.3-44.2) % [place] % (Auto) 7.4 (2.6-8.5) % Eos % (Auto) 1.0 (0-4.4) % Baso % (Auto) 0.5 (0.2-1.2) % Lymph # (Auto) 1.85 (0.9-3.2) K/mm3 [place] # (Auto) 0.5 (0.1-0.6) K/mm3 Eos # (Auto) 0.1 (0-0.3) K/mm3 Baso # (Auto) 0.0 (0.0-0.1) K/mm3 Abs Immat Gran (auto) 0.06 H (0.00-0.031) K/mm3 Absolute Neuts (auto) 4.7 (1.3-6.7) K/mm3 Absolute Nucleated RBC 0.000 (0.0-0.012) K/mm3 Nucleated RBC % 0.0 (0.0-0.2) % PT 14.9 H (11.1-14.7) Seconds INR 1.1 APTT 26.6 (22.3-36.8) Seconds Sodium 135 L (137-145) mmol/L Potassium 4.0 (3.4-5.0) mmol/L Chloride 100 (98-107) mmol/L Carbon Dioxide 27 (22-30) mmol/L Anion Gap 8 (4-12) mmol/L BUN 17 (7-17) mg/dL Creatinine 0.90 (0.7-1.0) mg/dL Estim Creat Clear Calc 44 ml/min Estimated GFR > 60 (59 - ) Glucose 98 (65-110) mg/dL Calcium 9.6 (8.4-10.2) mg/dL Total Bilirubin 0.2 (0.2-1.3) mg/dL AST 31 (14-36) U/L ALT 31 (6-35) U/L Alkaline Phosphatase 74 (38-126) U/L Troponin I < 0.012 < 0.012 (0.000-0.034) ng/mL NT-Pro-B Natriuret Pep 67 (19.9-100) pg/mL Total Protein 7.0 (6.3-8.2) g/dL Albumin 4.4 (3.5-5.1) g/dL Lipase 203 (23-300) U/L Imaging Data Attestation: I personally reviewed and interpreted this imaging study as follows: Radiologist's impression: ITS Impressions Chest X-Ray 06/03/24 10:25 IMPRESSION: Prominent bronchovascular markings in the lower lobes which may indicate bronchitis versus early bronchopneumonia. Follow-up advised. ECG Data EKG #1: Attestation: I personally reviewed and interpreted this ECG as follows: ECG completion date: 06/03/24 ECG completion time: 09:28 EKG Interpretation: normal rate (61), sinus rhythm and no ST changes Discharge Plan Discharge Clinical Impression: Atypical chest pain Patient Disposition: Home, Self-Care Condition: Stable Instructions: Antibiotic Form, Angina (ED), Chest Pain (ED) Additional Instructions: Your workup here was reassuring against a cardiac cause of your chest pain. Follow-up with your primary care doctor and middle school special education teacher for further evaluation. Call offices to make follow-up appointment. Return to the ED if you experience worsening or severe pain, severe shortness of breath, severe dizziness, unable to keep down food or drink, passing out, pain or swelling in legs, or any other symptoms of concern. Prescriptions: No Action Eliquis 5 mg tablet 5 mg PO DAILY isosorbide dinitrate 30 mg tablet 30 mg PO DAILY cholecalciferol (vitamin D3) 125 mcg (5,000 unit) capsule 5,000 unit PO DAILY vitamin B complex Capsule 1 cap PO DAILY ascorbic acid (vitamin C) 1,000 mg tablet 1 gm PO DAILY Adult Probiotic 3 billion cell capsule 3,000 mmu cells PO DAILY Rx Instructions: administer with a meal flaxseed oil 1,000 mg capsule 1,000 mg PO DAILY Rx Instructions: administer with a meal fluticasone propionate [Allergy Relief (fluticasone)] 50 mcg/actuation spray,suspension 1 spray intranasal DAILY PRN Rx Instructions: administer into each nostril multivitamin Tablet 1 tablet PO DAILY Ozempic 0.25 mg or 0.5 mg(2 mg/1.5 mL) pen injector 1 mg SUB-Q WEEKLY topiramate 25 mg capsule, sprinkle 25 mg PO BID Patient Comments: per patient home medication provided 06/14/20 lamotrigine 100 mg tablet 200 mg PO BID trazodone 100 mg tablet 200 mg PO QHS PRN (Reason: insomnia) Qty: 60 2RF Follow-up/Referrals: Claus Watson DO [Primary Care Provider] - Time of Disposition: 12:56 Quality HEART score for chest pain patients History: moderately suspicious ECG: normal Age: > or = to 65 years Risk factors: no risk factors known Troponin: < or = to 1x normal limit Heart score: 3
[2024-06-03 09:47] LABS: Basophils Percent Auto 0.5 % (0.2-1.2); Eosinophils Absolute Auto 0.1 K/mm3 (0-0.3); Hematocrit 37.7 % (37.0-47.0); Hemoglobin 12.3 g/dL (12.0-15.0); Immature Granulocyte Absolute 0.06 K/mm3 (0.00-0.031); Immature Granulocyte Percent A 0.8 % (0-0.5); Lymphocytes Absolute Auto 1.85 K/mm3 (0.9-3.2); Lymphocytes Percent Auto 25.4 % (18.3-44.2); Mean Corpuscular HGB Conc 32.6 g/dl (32-36); Mean Corpuscular Hemoglobin 28.5 pg (26-34); Mean Corpuscular Volume 87.3 fl (80-100); Mean Platelet Volume 9.3 fl (7.4-10.4); Monocytes Absolute Auto 0.5 K/mm3 (0.1-0.6); Monocytes Percent Auto 7.4 % (2.6-8.5); Neutrophils Absolute Auto 4.7 K/mm3 (1.3-6.7); Neutrophils Percent Auto 64.9 % (45.5-73.1); Platelet Count Result 270 k/mm3 (150-375); Red Blood Count 4.32 M/mm3 (4.2-5.4); Red Cell Distribution Width 14.1 % (11.5-14.5); White Blood Count 7.3 K/mm3 (4.5-10.0)
[2024-06-03] MEDS: ACETAMINOPHEN 500 MG TABLET 1000 MG PO (09:48)
[2024-06-03 10:00] LABS: Alanine Aminotransferase 31 U/L (6-35); Albumin Level 4.4 g/dL (3.5-5.1); Alkaline Phosphatase 74 U/L (38-126); Anion Gap 8 mmol/L (4-12); Aspartate Amino Transferase 31 U/L (14-36); Bilirubin,Total 0.2 mg/dL (0.2-1.3); Blood Urea Nitrogen 17 mg/dL (7-17); Calcium 9.6 mg/dL (8.4-10.2); Carbon Dioxide 27 mmol/L (22-30); Chloride 100 mmol/L (98-107); Estimated CRCL calculation 44 ml/min; Estimated Glomerular Filt Rate > 60; Glucose 98 mg/dL (65-110); Lipase 203 U/L (23-300); Sodium 135 mmol/L (137-145)
[2024-06-03 10:06] LABS: INR 1.1; Prothrombin Time 14.9 Seconds (11.1-14.7)
[2024-06-03 10:07] LABS: Partial Thromboplastin Time 26.6 Seconds (22.3-36.8)
[2024-06-03 10:11] LABS: Troponin I < 0.012 ng/mL (0.000-0.034)
[2024-06-03 10:17] LABS: NT Pro B Type Natriuretic Pept 67 pg/mL (19.9-100)
[2024-06-03] MEDS: SODIUM CHLORIDE 0.9% IV 1,000 ML 999 ML IV CONT (11:17)
--- NOTE | 2024-06-03 12:12 | ECG_ITS ---
Test Date: 2024-06-03 12:29:06 Measurements Intervals [place] Rate: 54 P: 63 ID: [id number] QRS: 19 QRSD: 100 T: 44 QT: 482 QTc: 458 Interpretive Statements SINUS BRADYCARDIA BORDERLINE ECG Compared to ECG 06/03/2024 09:28:41 HEART RATE HAS DECREASED Electronically Signed On 06-03-2024 12:53:38 MOBILE TESTER by Cecil Uribe D.O.
[2024-06-03 12:45] LABS: Troponin I < 0.012 ng/mL (0.000-0.034)
== END 2024-06-03 13:15 | disposition home or self-care (01) ==
PROVIDERS: Emergency Provider Physician Assistant; PCP Internal Medicine
DX: R07.89 Other chest pain (principal); R06.02 Shortness of breath; G40.909 Epilepsy, unspecified, not intractable, without status epilepticus; M81.0 Age-related osteoporosis without current pathological fracture; M06.9 Rheumatoid arthritis, unspecified; Z98.84 Bariatric surgery status; Z86.711 Personal history of pulmonary embolism; Z86.718 Personal history of other venous thrombosis and embolism; Z87.891 Personal history of nicotine dependence; Z98.49 Cataract extraction status, unspecified eye; Z90.710 Acquired absence of both cervix and uterus; Z79.899 Other long term (current) drug therapy; Z79.01 Long term (current) use of anticoagulants; Z79.85 Long-term (current) use of injectable non-insulin antidiabetic drugs; R00.1 Bradycardia, unspecified
CPT/HCPCS: 36415; 71046; 80053; 83690; 83880; 84484; 85025; 85610; 85730; 93005; 96360; 99284; A9270; J7030

== ENCOUNTER 2024-12-16 08:52 | Outpatient (CLI) | payer MEDICARE, SELFPAY ==
--- NOTE | ~2024-12-16 | DEXA_ITS ---
Bone Density Report Name: TRINI CARRERA Age: 74 Sex: Female Ethnicity: White Date of : 1950 Indication: postmenopausal; screening for osteoporosis; height loss; seizure disorder; hysterectomy; rheumatoid arthritis; Referring Provider: LOBO DANIEL Study: Bone densitometry was performed. Exam Date: December 16, 2024 Accession number: [id number] Bone Density: Region BMD T-score Z-score Classification AP Spine(L1-L4) 0.950 -0.9 1.6 Normal Femoral Neck (Left) 0.689 -1.4 0.7 Osteopenia Total Hip (Left) 0.817 -1.0 0.8 Normal Femoral Neck (Right) 0.683 -1.5 0.6 Osteopenia Total Hip (Right) 0.816 -1.0 0.8 Normal Total Hip Mean 0.816 -1.0 0.8 Normal World Health Organization criteria for BMD impression classify patients as: Normal (T-score at or above -1.0), Osteopenia (T-score between -1.0 and -2.5), or Osteoporosis (T-score at or below -2.5). 10-year Fracture Risk(1): Major Osteoporotic Fracture 16% Hip Fracture 3.6% Reported Risk Factors: [place] (), Neck BMD=0.683, BMI=26.3, rheumatoid arthritis (1) FRAX(R) Version 3.08. Fracture probability calculated for an untreated patient. Fracture probability may be lower if the patient has received treatment. Previous Exams: Region Exam Age BMD T-score BMD Change BMD Change Date g/cm2 vs Baseline vs Previous AP Spine (L1-L4) 12/16/2024 74 0.950 -0.9 -0.001 (-0.1%) -0.001 (-0.1%) 06/09/2021 70 0.951 -0.9 Total Hip(Left) 12/16/2024 74 0.817 -1.0 -0.052 (-6.0%) -0.052 (-6.0%) 06/09/2021 70 0.869 -0.6 Total Hip(Right) 12/16/2024 74 0.816 -1.0 -0.006 (-0.7%) -0.006 (-0.7%) 06/09/2021 70 0.822 -1.0 *Denotes significance at 95% confidence level, LSC for AP Spine = 0.022 g/cm2, LSC for Total Hip = 0.027 g/cm2 Clinical Information Provided by Patient: Has rheumatoid arthritis Has used the following medications: Vitamin D, Calcium Has the following medical conditions: Any Seizure Disorders, Hysterectomy Patient maximum height was 69 Menopause Age: 45 No regular weight bearing exercise Drinks caffeinated beverages Onset of menses at age 8 Number of children 3 Impression: The patient has low bone mass, based on the Right Femoral Neck T-score. The patient has an estimated ten-year risk of hip fracture of 3.6% and an estimated ten-year risk of major fracture of 16%, based on the WHO FRAX algorithm. The BMD for the Total Hip(Left) decreased, changing by -6.0% since the last DXA exam. Discussion: BONE DENSITY IS LOW AT ONE OR MORE SKELETAL SITES. THE PATIENT'S BMD AND CLINICAL RISK FACTORS CONTRIBUTE TO THIS PATIENT'S INCREASED RISK OF FRACTURE. This patient's lowest T-score is low at one or more skeletal sites. It meets the World Health Organization's (WHO) criteria for ?low bone mass? (T-score between -1.0 and -2.5). The patient's 10-year risk of hip fracture as calculated by FRAX exceeds the threshold where pharmacological therapy is recommended by the National Osteoporosis Foundation (NOF). However, all treatment decisions require clinical judgment and consideration of individual patient factors, including patient preferences, comorbidities, previous drug use, risk factors not captured in the FRAX model (e.g., frailty, falls, vitamin D deficiency, increased bone turnover, interval significant decline in bone density) and possible under or overestimation of fracture risk by FRAX. The patient should follow a healthful lifestyle (good nutrition with adequate calcium and vitamin D, and appropriate weight-bearing exercise). Follow-Up: Consider a repeat BMD and Vertebral Fracture Assessment (VFA) exam in 2 years or sooner if medically necessary, to reassess this patient's status. Reported by: BRIAN on 12/16/2024 9:30:00 AM. Reviewed, dictated and finalized at location A.
--- OUTSIDE RECORDS SUMMARY | 2024-12-16 09:05 | XMS_ITS | Encounter Summary ---
Author Organization [facility] Address [address] [place] [address] Care Team Providers Care Career Services Assistant Name Role Phone Maricruz Grubbs MD Primary Care Provider [phone] Encounter Details Date Type Department Care Team (Late st Contact Info) Description 06/09/2004 Outpatient Historical [address] 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 Gender Identity Not on file Sexual Orientation Not on file documented as of this encounter Last Filed Vital Signs Vital Sign Reading Time Taken Comments Blood Pressure 128/82 06/09/2004 9:30 AM SALOON KEEPER Pulse 74 06/09/2004 9:30 AM SALOON KEEPER Temperature 37 C (98.6 F) 06/09/2004 9:30 AM SALOON KEEPER Respiratory Rate - - Oxygen Saturation - - Inhaled Oxygen Concentration - - Weight 72.6 kg (160 lb) 06/09/2004 9:30 AM SALOON KEEPER Height - - Body Mass Index - - documented in this encounter Plan of Treatment Upcoming Encounters Date Type Department Care Team (Late st Contact Info) Description 03/24/2025 10:45 AM CDT Office Visit [facility] [address] [place] [phone] Rod Huddleston MD [facility] [address] [place] [address] documented as of this encounter Visit Diagnoses Not on filedocumented in this encounter Care Teams Career Services Assistant Relationship Specialty Start [place] [id number] [place], [place] [id number] PCP - General Internal Medicine 10/27/16 documented as of this encounter
--- OUTSIDE RECORDS SUMMARY | 2024-12-16 09:05 | XMS_ITS | Encounter Summary ---
Author Organization [facility] Address [address] [place] [address] Phone Care Team Providers Care Underwriter Name Role Phone Claus Watson DO Primary Care Provider [phone] Encounter Details Date Type Department Care Team (Latest Contact Info) Description 05/31/2024 Orders Only [facility] Scanning, Provider Social History Tobacco Use Types Packs/Day Years Used Date Smoking Tobacco: Former Smokeless Tobacco: Never Alcohol Use Standard Drinks/Week Comments Yes 0 (1 standard drink = 0.6 oz pur e alcohol) AUDIT-C Answer Date Recorded Q1: How often do you have a drink containing alcohol? 4 or more times a week 03/18/2024 Q2: How many drinks containi ng alcohol do you have on a typical day when you are drinking? 1 or 2 Q3: How often do you have si x or more drinks on one occasion? Never 03/18/2024 Comments Unknown Sex and Gender Information Value Date Recorded Sex Assigned at Not on file Legal Sex Female 10:21 PM MEAT GRINDER Gender Identity Female 08/13/2020 8:00 AM MEAT GRINDER Sexual Orientation Straight 08/13/2020 8: 00 AM MEAT GRINDER documented as of this encounter Plan of Treatment Not on file documented as of this encounter Procedures Procedure Name Priority Date/Time Associated Diagnosis Comments SCAN - LABS 05/31/2024 documented in this encounter Results * SCAN - LABS (05/31/2024) us Provider Scanning Final Result documented in this encounter Visit Diagnoses Not on filedocumented in this encounter Care Teams Underwriter Relationship Specialty Start Date End Date Claus Watson DO PCP - General Internal Medicine 04/14/20 documented as of this encounter
--- OUTSIDE RECORDS SUMMARY | 2024-12-16 09:05 | XMS_ITS | Encounter Summary ---
Author Organization [facility] Address [address] [place] [address] Care Team Providers Care Oracle Identity Management Consultant Name Role Phone Naseem Isaac MD Unavailable [phone] Maricruz Grubbs MD Primary Care Provider [phone] Claus Watson DO Primary Care Provider Delmi Jauregui MD Primary Care Provider [phone] Delmi Jauregui MD Unavailable [phone] Delmi Jauregui MD Unavailable [phone] Delmi Jauregui MD Unavailable [phone] Milena Dubose Unavailable Jessica Hyatt Unavailable Encounter Details Date Type Department Care Team (Late st Contact Info) Description 02/08/2021 Lab Requisition [facility] [address] 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 Gender Identity Not on file Sexual Orientation Not on file documented as of this encounter Plan of Treatment Not on file documented as of this encounter Procedures Procedure Name Priority Date/Time Associated Diagnosis Comments DERMATOPATHOLOGY Routine 02/03/2021 3:33 AM CDT documented in this encounter Results * DERMATOPATHOLOGY (02/03/2021 3:33 AM CDT) Case Report Dermatopathology Report Case: [id number] Authorizing Provider: Soha Jones MD Collected: 02/03/2021 03:33 AM Ordering Location: [facility] Received: 02/08/2021 07:08 AM Pathologist: Vanda Basilio MD Specimen: Skin, left yarsani 11:34 AM CDT DERMATOPATHOLOGY LABORATORY Final Diagnosis Specimen A. 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 11:34 AM CDT DERMATOPATHOLOGY LABORATORY Gross Description Specimen A: Received is one formalin filled container labeled with the patient's name and designated left yarsani. The specimen consists of a non-oriented ellipse of skin measuring [id number] bisected and inked, [id number] bisected and [id number] submitted whole. Jar 0. 11:34 AM CDT DERMATOPATHOLOGY LABORATORY Microscopic Description Specimen A. SKIN, left yarsani: There are numerous histiocytes and multinucleate giant cells around foreign material. The foreign body is highlighted when viewed under polarized light. 11:34 AM CDT DERMATOPATHOLOGY LABORATORY Disclaimer An external and internal positive and negative controls are appropriate for the histochemical, immunohistochemical and immunofluorescence stain(s) in this case (if any), except where stated explicitly. The performance characteristics of the stain(s) cited in this report were developed and its performance characteristic determined by the Dermatopathology Laboratory at [facility], directed by Dr. Merlin Scott. These tests need not be, and therefore are not, approved by the [place] Food and Drug Administration. The tests are used for clinical purposes. Billing Codes Specimen Charges Stain Charges 91647 1 11:34 AM CDT DERMATOPATHOLOGY LABORATORY Embedded Images 11:34 AM CDT DERMATOPATHOLOGY LABORATORY Pathology/Cytolo gy TISSUE SPECIMEN FROM SKIN / Unknown 02/03/2021 3:33 AM CDT 02/08/2021 7:08 AM CDT us Soha Jones MD LAB - PATHOLOGY/CYTOLOGY ORDERA BLES Final Result DERMATOPATHOLOGY LABORATORY [facility] - Department of Dermatology [address] [phone] documented in this encounter Visit Diagnoses Not on filedocumented in this encounter Care Teams Oracle Identity Management Consultant Relationship Specialty Start Date End Date Maricruz Grubbs MD PCP - General Internal Medicine 06/21/17 05/15/21 Claus Watson DO PCP - General 05/16/21 11/26/22 Delmi Jauregui MD [address] [place] [phone] PCP - General Internal Medicine 11/27/22 Delmi Jauregui MD [address] [place] [address] PCP - [facility] 02/27/2305/16 Delmi Jauregui MD [address] [place] [address] PCP - Attributed-[facility] [place] 10/29/23 Delmi Jauregui MD [address] [facility] [address] [place] [address] PCP - Attributed-[facility] 11/28/23 02/14/24 Naseem Isaac MD Neurology 01/16/12 Milena Dubose Care Coordination Specialist Care Management 02/26/24 02/26/24 Jessica Hyatt [address] [facility] [address] [place] [phone] Care Coordination Specialist Care Management 11/14/24 documented as of this encounter
--- OUTSIDE RECORDS SUMMARY | 2024-12-16 09:05 | XMS_ITS | Clinical Summary ---
Author Organization [address] Address [address] [place] [address] Care Team Providers Care Auditor Supervisor Name Role Phone Claus Watson DO Primary Care Provider [phone] Allergies Active Allergy Reactions Criticality Noted Date Comments [place] Needle Oil Other (See comments) Low 02/06/2017 Gets very sick [place] Tar Other (See comments) Low 02/06/2017 Gets very sick Gets very sick Medications Eliquis 5 mg tablet 0 Active isosorbide mononitrate ER (IMDUR) 30 mg 24 hr tablet Take 1 tablet (30 mg total) by mouth Taking half =15mg total 0 Active multivitamin tablet Take 1 tablet by mouth car runner before breakfast Active ascorbic acid (VITAMIN C) 1,000 mg tablet Take 1 tablet (1,000 mg total) by mouth daily Active topiramate (TOPAMAX) 25 mg tablet Take 1 tablet (25 mg total) by mouth 2 (two) times a day Active cholecalciferol , vitamin D3, (VITAMIN D3 ORAL) Take by mouth Active traZODone (DESYREL) 100 mg tablet 1 Active FLAXSEED ORAL Take by mouth Ac tive terbinafine (LamiSIL) 250 mg tablet Take 1 tablet (250 mg total) by mouth daily Active fluticasone propionate (FLONASE) 50 mcg/actuation nasal sprayIndication s:Allergic rhinitis, unspecified seasonality, unspecified trigger Administer 2 sprays into each nostril daily 16 g 11 2 Active ergocalciferol, vitamin D2, (VITAMIN D2 ORAL) Take by mouth Active mv-mn/iron/foli c acid/herb 190 (VITAMIN D3 COMPLETE ORAL) Take by mouth A ctive cyanocobalamin, vitamin B-12, (VITAMIN B-12 ORAL) Take by mouth Active pen needle, diabetic (Comfort EZ Pen [place]) 32 gauge x needleIndicatio ns:Class 2 obesity due to excess calories without serious comorbidity with body mass index (BMI) of 37.0 to 37.9 in adult Use one needle weekly to inject ozempic, dx obesity 1 each 1 4 Active lamoTRIgine (LaMICtal) 200 mg tabletIndicatio ns:Generalized epilepsy (HCC) TAKE 1 TABLET BY MOUTH TWICE DAILY 200 tablet 2 5 Active famotidine (PEPCID) 40 mg tabletIndicatio ns:Laryngophary ngeal reflux (LPR) Take 1 tablet (40 mg total) by mouth nightly 90 tablet 3 5 026 Active semaglutide (OZEMPIC) 1 mg/dose (4 mg/3 mL) pen injector injection Inject 1 mg under the skin every 7 days 9 mL 1 5 Active semaglutide (OZEMPIC) 1 mg/dose (4 mg/3 mL) pen injector injection Inject 1 mg under the skin every 7 days 9 mL 1 5 025 Discontinu ed(Reorder ) clotrimazole-be tamethasone (LOTRISONE) creamIndication s:Chronic eczematous otitis externa of both ears Apply topically 2 (two) times a day for 14 days 30 g 1 5 025 Active Problems Problem Noted Date Diagnosed Date Laryngopharyngeal reflux (LPR) 11/10/2024 Assessment & Plan (11/10/2024 12:27 PM CDT): Pepcid 40 mg at bedtime Have Denture plates refit Lotrisone twice daily to outer portion of the ear canal for two weeks then as needed Avoid ear cleaning techniques Avoid water to ears Class II obesity 07/01/2024 BMI 23.0-23.9, adult 05/13/2024 History of obesity 05/13/2024 Assessment & Plan (05/13/2024 4:30 PM CDT): high weight 150 lbs Obesity is one of the leading risk factor for mortality. Metabolically healthy obese individuals had 49% increased risk of coronary artery disease, 7% increased risk of cerebrovascular disease and 96% increased risk of heart failure. In other words, even individuals who are normal weight can have metabolic abnormalities and similar risk for cardiac vascular disease events. Thus, the complications that may result from metabolic syndrome and frequently serious and chronic. They include atherosclerosis, diabetes, myocardial infarction, renal disease, cardiovascular events such as stroke, nonalcoholic fatty liver disease, peripheral artery disease, and cardiovascular diseases. His diabetes develops; there is an increased risk of retinopathy, neuropathy, renal disease and amputation of labs. Therefore, treating obesity, obesity related diseases is exceedingly crucial. Improving the hypertrophic adipocytes function and decrease insulin resistance is the main goal of the treatment. Furthermore, an emerging concept that the anti-obesity agents must not only reduce the hypertrophic adipocytes but must also correct the fat dysfunction, adiposopathy. Weight loss is associated with increases in mean suppression of glucose production from baseline, is associated with increase insulin stimulated in glucose disposal from fat-free mass and weight loss increased beta cell function. In other words, weight loss change in hepatic insulin sensitivity and muscle insulin sensitivity, beta cell function and a 24-hour plasma glucose and insulin profiles. Our goal is and decreasing the weight between 16 and 20% which will significantly decrease the risk of morbidity and mortality. Abnormal finding on thyroid function test 2023 Abnormal metabolism 03/11/2024 Acute hyponatremia 03/11/2024 Anemia 03/11/2024 Anxiety 03/11/2024 Arthralgia of right ankle 03/11/2024 Bradycardia 03/11/2024 Cobalamin deficiency 03/11/2024 Drug-induced hyperglycemia 03/11/2024 Hyperglycemia 03/11/2024 Fall 03/11/2024 Hyperkalemia 03/11/2024 Hypokalemia 03/11/2024 Hypomagnesemia with secondary hypocalcemia 03/11 Iron deficiency 03/11/2024 Iron deficiency anemia 03/11/2024 Osteoporosis 03/11/2024 Other specified symptoms and signs involving the circulatory and respiratory systems 03/11/2024 Prediabetes 03/11/2024 Pulmonary infarction 03/11/2024 Right shoulder pain 03/11/2024 Substernal chest pain 03/11/2024 Symptoms of stress 03/11/2024 Temporal arteritis 03/11/2024 Electrolyte and fluid disorder 03/11/2024 Metabolic syndrome 03/11/2024 Arteriosclerosis of coronary artery 03/11/2024 Hyperlipidemia 03/11/2024 BMI 37.0-37.9, adult 03/11/2024 Overweight 03/11/2024 Seizure disorder 03/11/2024 Seizure 03/11/2024 Syncope 03/11/2024 Exercise counseling 03/05/2024 Assessment & Plan (05/13/2024 4:30 PM CDT): Relevant weight management chart notes reviewed. I counseled the patient on nutrition: Implementing First Line therapy was discussed. Furthermore, we recommend a diet with a slightly higher high protein content, lower glycemic index with carbohydrate restriction yet without daily energy restriction. This approach will need to a weight loss because of higher satiety sensation. Recommend avoiding food persevered in plastic, eating out or processed food. Avoid eating out and ultraprocessed foods. Recommend fresh/frozen protein and vegetables. Study YES and NO list. I counseled the patient on exercise: Recommend 36 min. cardio daily. Based on availiable data on the secondary prevention of coronary heart disease, stroke and prediabetes, physical activity is potentially as active as many drug interventions.Lima Tolbert: BMJ 2013 [id number]:f5577;04/2013; Diabetes Care, Volume 35, Jun 2012. Pharmacotherapy: Reviewed medications; discussed with the patient changes in details, discussed side effects and risks of taking the medications in details with the patient. Patient expressed understanding of the new orders; see attached new treatment and orders. Rybelsus 7mg 1/2 tab --> 7mg --> 14 mg Pt will message me with udpated. Can either continue high dose rybelsus or change back to ozempic 1mg - pt has been getting from [place] Metabolic disorder 03/05/2024 Overweight (BMI 25.0-29.9) 03/05/2024 Dizziness and giddiness 12/10/2023 Assessment & Plan (12/10/2023 11:16 AM CDT): Have vision checked Hearing and Balance testing [facility] Dr. Meek Beauchamp [phone] [address] [place] [address] If Negative, will refer to balance physical therapy Sensorineural hearing loss (SNHL) of both ears 0 12/10/2023 Assessment & Plan (12/10/2023 11:17 AM CDT): Have vision checked Hearing and Balance testing [facility] Dr. 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 10/08/2023 Altered mental status 05/01/2023 Progressive pulmonary hypertension 01/10/2023 Disorder of bone, unspecified 12/07/2021 Disorder of cartilage, unspecified 12/07/2021 Other fatigue 12/07/2021 Other reactive arthropathies, unspecified site 0 12/07/2021 Vitamin D deficiency, unspecified 12/07/2021 Other juvenile arthritis, unspecified site 12/07 Sicca complex 06/30/2021 Dizziness 01/18/2021 Chronic eczematous otitis externa of both ears 0 08/13/2020 Assessment & Plan (11/10/2024 10:19 AM CDT): Pepcid 40 mg at bedtime Have Denture plates refit Lotrisone twice daily to outer portion of the ear canal for two weeks then as needed Avoid ear cleaning techniques Avoid water to ears Assessment & Plan (08/13/2020 9:56 AM CEMENT DESPATCH OPERATOR): Pull back and up on the outer portion of the ear to help place hearing aid and have respiratory medicine physician work with you on placement If still having difficulties, call for appointment Elocon cream to outer portion of ears as needed for ear itching Avoid ear cleaning techniques Avoid water to ears Continue Flonase Mixed hyperlipidemia 07/21/2020 Complex 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 with good tolerability and no seizures over the past 6 months. She is in need of refill in her lamotrigine has been represcribed for the upcoming year at current dosing. I will see her back in 1 year. Assessment & Plan (06/15/2020 2:52 PM CEMENT DESPATCH OPERATOR): Patient has lifelong history of complex partial seizure secondary generalization beginning at age 5. She has currently been under the practice at [facility], but is requesting transferring care to logistical difficulties getting to [facility]. She has been using lamotrigine 100 mg b.i.d.. She cites 2 generalized seizures this year both associated with regular medical compliance and sleep hygiene. She has no tolerability with medication at this time. She exhibits a normal neurological examination presently. I will increase her lamotrigine to 150 mg b.i.d.. I will retrieve medical records from her [facility] providers to facilitate transfer in care. I have reviewed with her that she needs to fulfill a 6 month seizure-free interval before resuming driving under [place] guidelines which she states understanding and agrees to abide by. I will plan on seeing her back in 6 months for reassessment on her increased dose of lamotrigine. Sensorineural hearing loss ( SNHL) of left ear with restricted hearing of right ear 04/14/2020 Assessment & Plan (04/14/2020 10:42 AM CDT): Avoid ear cleaning techniques Avoid water to ears Follow up in 6 months, earlier if ears plug up Continue Hearing aids Bilateral impacted cerumen 04/14/2020 Assessment & Plan (12/06/2022 11:23 AM CDT): Avoid ear cleaning techniques Follow up in one year for ear check Assessment & Plan (03/13/2022 10:43 AM CDT): Use ear drops as needed for ear itching Follow up in 9 months, call if ears fill up before hand Assessment & Plan (09/09/2021 1:13 PM CEMENT DESPATCH OPERATOR): Avoid ear cleaning techniques Follow up in 6 months for ear check Assessment & Plan (02/28/2021 11:27 AM CDT): Avoid ear cleaning techniques Continue hearing aids Follow up in 6 months for ear check Assessment & Plan (08/13/2020 2:25 PM CEMENT DESPATCH OPERATOR): Avoid ear cleaning techniques Avoid water to ears Assessment & Plan (04/14/2020 10:43 AM CDT): Avoid ear cleaning techniques Avoid water to ears Follow up in 6 months, earlier if ears plug up Continue Hearing aids Allergic rhinitis 04/14/2020 Assessment & Plan (12/06/2022 11:27 AM CDT): Flonase 2 sprays into each nostril while looking down over the sink, do not sniff in or blow nose after use for at least 30 minutes OR Cetirizine 5 mg daily (1/2 tablet) Call for follow up if cough does not get better Assessment & Plan (08/13/2020 2:22 PM CEMENT DESPATCH OPERATOR): Pull back and up on the outer portion of the ear to help place hearing aid and have respiratory medicine physician work with you on placement If still having difficulties, call for appointment Elocon cream to outer portion of ears as needed for ear itching Avoid ear cleaning techniques Avoid water to ears Continue Flonase Assessment & Plan (04/14/2020 10:45 AM CDT): Flonase 2 sprays into each nostril while looking down over the sink, do not sniff in or blow nose after use for at least 30 minutes daily Mild CAD 08/02/2019 Overview (12/07/2020): Chest xray done 01/29/2012 Media section History of DVT (deep vein thrombosis) 08/02/2019 Recurrent chest pain 08/02/2019 Non-cardiac chest pain 08/02/2019 History of pulmonary embolism 05/03/2016 Pain of foot 12/22/2014 Depression 01/16/2012 Insomnia 01/16/2012 Memory loss 01/16/2012 Overview (12/07/2020): Per pt, since ECT Arthritis 02/25/2009 Overview (12/07/2020): Knees and lower back Pulmonary embolism 02/25/2009 Seizure 02/25/2009 Overview (12/07/2020): Last seizure 01/06. Grand mal and petit mal Tobacco use disorder 06/01/2004 Encounters Date Type Department Care Team Description 12/09/2024 Telephone [facility] Metabolic Weight Management [address] [facility] Medical Office Building [address], [address] [place] [address] Russell kauffman, Ni, GLOBAL LOGISTICS MANAGER Med Refill 11/10/2024 10:00 AM CDT Office Visit [facility] - [address], [place] [phone] Stephany Thomas, Laryngopharyngeal reflux (LPR) (Primary Dx); Chronic eczematous otitis externa of both ears from Last 3 Months Surgical History Surgery Date Site/Laterality Comments TONSILLECTOMY HYSTERECTOMY GASTRIC BYPASS Medical History Medical History Date Comments Depression Seizures (HCC) Family History Medical History Relation Name Comments Cancer Daughter Family history of malignant neoplasm - (Added by TW Conv) Arthritis Father Family history of arthritis - (Added by TW Conv) Cancer Father Family history of malignant neoplasm - (Added by TW Conv) Cancer Mother Family history of malignant neoplasm - (Added by TW Conv) Relation Name Status Comments Daughter Father Mother Social History Tobacco Use Types Packs/Day Years Used Date Smoking Tobacco: Former Smokeless Tobacco: Never Tobacco Cessation:Counseling Given: No Alcohol Use Standard Drinks/Week Comments Yes 0 (1 standard drink = 0.6 oz pur e alcohol) AUDIT-C Answer Date Recorded Q1: How often do you have a drink containing alc ohol? Monthly or less 07/01/2024 Q2: How many drinks containi ng alcohol do you have on a typical day when you are drinking? 1 or 2 07/01/2024 Q3: How often do you have si x or more drinks on one occasion? Never 07/01/2024 Comments Unknown Sex and Gender Information Value Date Recorded Sex Assigned at Not on file Legal Sex Female 10:21 PM CEMENT DESPATCH OPERATOR Gender Identity Female 08/13/2020 8:00 AM CEMENT DESPATCH OPERATOR Sexual Orientation Straight 08/13/2020 8: 00 AM CEMENT DESPATCH OPERATOR Obstetrics History Last Filed Vital Signs Vital Sign Reading Time Taken Comments Blood Pressure 112/62 07/01/2024 11:12 AM CEMENT DESPATCH OPERATOR Pulse 59 07/01/2024 11:12 AM CEMENT DESPATCH OPERATOR Temperature 36.3 C (97.4 F) 07/01/2024 11:12 AM CEMENT DESPATCH OPERATOR Respiratory Rate 16 07/01/2024 11:12 AM CEMENT DESPATCH OPERATOR Oxygen Saturation 98% 07/01/2024 11:12 AM CEMENT DESPATCH OPERATOR Inhaled Oxygen Concentration - - Weight 71.2 kg (157 lb) 11/10/2024 9:49 AM CDT Height 167.6 cm (5' 5.98 ) 11/10/2024 9:49 AM CD T Body Mass Index 25.35 11/10/2024 9:49 AM CDT Plan of Treatment Health Maintenance Due Date Last Done Comments Depression Screening 1948 Fall Risk Assessment 1948 Hepatitis C Screening 1948 Hepatitis B Screening 1966 Zoster Vaccine (1 of 2) 1998 Well Visit 65+ 2013 Pneumococcal vaccine 65+ (2 of 2 - PCV) 07/03/2017 1 09/03/2015 DTaP/Tdap/Td Vaccine (2 - Tdap) 10/29/2023 4 Osteoporosis Screening-Bone Density Scan 01/11/2024 01/10/2022 Influenza Vaccine (Season Ended) 2025 07/03/20 16, 07/01/2012 Breast Cancer Screening-Mammogram Discontinued [address] [facility] MEDICARE ADVANTAGE [place] [id number] [facility] MEDICARE Address: [address] [place], [place] [id number] UHC MEDICARE ADVANTAGE Care Teams Auditor Supervisor Relationship Specialty Start Date End Date Claus Watson DO PCP - General Internal Medicine 04/14/20
--- OUTSIDE RECORDS SUMMARY | 2024-12-16 09:05 | XMS_ITS | Encounter Summary ---
Author Organization [facility] Address [address] [place] [address] Care Team Providers Care Marker Hand Name Role Phone Maricruz Grubbs MD Primary Care Provider Encounter Details Date Type Department Care Team (Late st Contact Info) Description 07/21/2006 Outpatient Historical [facility] [place]., [place] [address] [place] [address] Social History Tobacco Use Types Packs/Day Years Used Date Smoking Tobacco: Never Assessed Comments Unknown Sex and Gender Information Value Date Recorded Sex Assigned at Not on file Legal Sex Female 5:27 AM FACSIMILE OPERATOR Gender Identity Not on file Sexual Orientation Not on file documented as of this encounter Plan of Treatment Upcoming Encounters Date Type Department Care Team (Late Contact Info) Description 03/24/2025 10:45 AM CDT Office Visit [facility] Heart and Vascular At [facility] [address] [address] [place] [address] Rod Huddleston MD [address] [facility] [place] [address] documented as of this encounter Visit Diagnoses Not on filedocumented in this encounter Care Teams Marker Hand Relationship Specialty Start [place] [address] [place] [address] PCP - General Internal Medicine 10/27/16 documented as of this encounter
--- OUTSIDE RECORDS SUMMARY | 2024-12-16 09:05 | XMS_ITS | Encounter Summary ---
Author Organization [facility] Address [address] [place] [address] Care Team Providers Care Child Development Assistant Name Role Phone Maricruz Grubbs MD Primary Care Provider Encounter Details Date Type Department Care Team (Late st Contact Info) Description 03/27/2003 Outpatient Historical [address] [phone] Katie Rodriguez MD Social History Tobacco Use Types Packs/Day Years Used Date Smoking Tobacco: Never Assessed Comments Unknown Sex and Gender Information Value Date Recorded Sex Assigned at Not on file Legal Sex Female 5:27 AM GROUP EXERCISE MANAGER Gender Identity Not on file Sexual Orientation Not on file documented as of this encounter Plan of Treatment Upcoming Encounters Date Type Department Care Team (Late st Contact Info) Description 03/24/2025 10:45 AM CDT Office Visit [facility] Heart and Vascular At [place] [address] [facility] [address] [place] [address] Rod Huddleston MD [facility] [address] [facility] [address] [place], [place] [id number] documented as of this encounter Visit Diagnoses Not on filedocumented in this encounter Care Teams Child Development Assistant Relationship Specialty [place] [address] [place] [address] PCP - General Internal Medicine 10/27/16 documented as of this encounter
--- OUTSIDE RECORDS SUMMARY | 2024-12-16 09:05 | XMS_ITS | Encounter Summary ---
Author Organization [facility] Address [facility] [place] [address] Care Team Providers Care Seo Expert Name Role Phone Perico Menard MD Primary Care Provider [phone] Claus Watson DO Primary Care Provider [phone] Encounter Details Date Type Department Care Team (Late st Contact Info) Description 09/16/2024 MyChart Message Enc [facility] Multispecialty Care - [facility] [address] [facility], [address] [place] [address] Clem Zhu MD [address] [place], [place] [id number] appointment Social History Tobacco Use Types Packs/Day Years Used Date Smoking Tobacco: Never Assessed Comments Unknown Sex and Gender Information Value Date Recorded Sex Assigned at Female 09/16/2024 1:26 PM MANAGER CONFIGURATION Legal Sex Female 8:33 AM MANAGER CONFIGURATION Gender Identity Not on file Sexual Orientation Not on file documented as of this encounter Plan of Treatment Upcoming Encounters Date Type Department Care Team (Late st Contact Info) Description 02/04/2025 9:40 AM CDT Office Visit [facility] Orthopedic & Sports Medicine - [place] [address] [place] [address] Hernan Jackson MD [address] [place] [address] 05/19/2025 9:00 AM CDT Office Visit [facility] Multispecialty Care - [facility] [address] [facility], [address] [place] [address] Clem Zhu MD [address] [place] [address] documented as of this encounter Visit Diagnoses Not on filedocumented in this encounter Care Teams Seo Expert Relationship Specialty Start Date End Date Perico Menard MD [address] [place] [address] PCP - General FAMILY PRACTICE 09/16/24 10/20/24 Claus Watson DO [address] [facility] [address] [place] [address] PCP - General INTERNAL MEDICINE 11/03/24 documented as of this encounter
--- OUTSIDE RECORDS SUMMARY | 2024-12-16 09:05 | XMS_ITS | Encounter Summary ---
Author Organization [facility] Address [address] [place] [address] Care Team Providers Care Slicing Machine Operator/Tender Name Role Phone Maricruz Grubbs MD Primary Care Provider [phone] Encounter Details Date Type Department Care Team (Late st Contact Info) Description 08/25/2003 Outpatient Historical [address] [phone] Katie Rodriguez MD Social History Tobacco Use Types Packs/Day Years Used Date Smoking Tobacco: Never Assessed Comments Unknown Sex and Gender Information Value Date Recorded Sex Assigned at Not on file Legal Sex Female 5:27 AM BUILDING APPRAISER Gender Identity Not on file Sexual Orientation Not on file documented as of this encounter Plan of Treatment Upcoming Encounters Date Type Department Care Team (Late st Contact Info) Description 03/24/2025 10:45 AM CDT Office Visit [facility] Heart and Vascular At [place] [address] [facility] [address] [place] [address] Rod Huddleston MD [facility] [address] [facility] [address] [place], [place] [id number] documented as of this encounter Visit Diagnoses Not on filedocumented in this encounter Care Teams Slicing Machine Operator/Tender Relationship Specialty Start [place] [address] [place] [address] PCP - General Internal Medicine 10/27/16 documented as of this encounter
--- OUTSIDE RECORDS SUMMARY | 2024-12-16 09:05 | XMS_ITS | Encounter Summary ---
Author Organization [facility] Address [address] [place] [address] Care Team Providers Care Nurseryperson Name Role Phone Maricruz Grubbs MD Primary Care Provider [phone] Encounter Details Date Type Department Care Team (Late st Contact Info) Description 05/29/2006 Outpatient Historical Division of Neurology [address] [facility] [address] Jaison Amador MD [address] [place] [address] Social History Tobacco Use Types Packs/Day Years Used Date Smoking Tobacco: Never Assessed Comments Unknown Sex and Gender Information Value Date Recorded Sex Assigned at Not on file Legal Sex Female 5:27 AM SUPPLY AIDE Gender Identity Not on file Sexual Orientation Not on file documented as of this encounter Plan of Treatment Upcoming Encounters Date Type Department Care Team (Late st Contact Info) Description 03/24/2025 10:45 AM CDT Office Visit [facility] Heart and Vascular At [facility] [address] [place] [address] Rod Huddleston MD [address] [facility] [address] [place] [address] documented as of this encounter Visit Diagnoses Not on filedocumented in this encounter Care Teams Nurseryperson Relationship Specialty [place] [address] [place] [address] PCP - General Internal Medicine 10/27/16 documented as of this encounter
--- OUTSIDE RECORDS SUMMARY | 2024-12-16 09:05 | XMS_ITS | Clinical Summary ---
Author Organization [facility] Address [address] [place] [address] Care Team Providers Care Environmental Associate Name Role Phone Naseem Isaac MD Unavailable [phone] Delmi Jauregui MD Primary Care Provider [phone] Jessica Hyatt Unavailable Source Comments [facility],non-owned Affiliates and Associated Physician Practices is amultiple site organization consisting of ambulatory clinics and hospital sitesin [place], [place], [place] and [place]. This disclosure is being madepursuant to the Care Everywhere program and may not contain all information available regarding this patient. Last updated 18.[facility] Allergies Active Allergy Reactions Criticality Noted Date Comments Meddybemps Tar Other Low 02/06/2017 Gets very sick Gets very sick Medications * Be aware that medications may not be up to date on this document. Alwaysverify current medications with the patient. Cholecalciferol (VITAMIN D3 PO) Acti ve Other Flaxseed Oil Active Ascorbic Acid 1000 MG Take 1 (one) tablet by mouth once daily Active B Qqjitkj-Z-Qbqvm Acid (GRANT-ALEXEY RX) 1 MG TABS Take 1 (one) tablet by mouth once daily Active isosorbide mononitrate CR 24hr (IMDUR) 30 MG tablet Take 1 (one) tablet by mouth 12/11/19 21 Active Multiple Vitamin (MULTI-VITAMIN) TABS Take 1 (one) tablet by mouth Active topiramate (TOPAMAX) 25 MG tablet Take 1 (one) tablet by mouth 2 times daily Active traZODone (DESYREL) 100 MG tablet 09/21/19 21 Active ferrous sulfate 325 (65 FE) MG tablet Take 1 (one) tablet by mouth once daily Active fluticasone propionate (Flonase) 50 MCG/ACT nasal spray [place] 2 (two) sprays into each nostril once daily Active Semaglutide (1 MG/DOSE) 4 MG/3ML Subcutaneous Solution Pen-injector (Ozempic (1 MG/DOSE)) 1 (one) mg 12/28/19 23 Active lamoTRIgine (LaMICtal) 200 MG tablet Take 1 (one) tablet by mouth 2 times daily 200 tablet 3 04/17/20 23 Active apixaban (Eliquis) 5 MG tablet Take 1 (one) tablet by mouth at bedtime Restart postoperative on evening of Sunday 4. 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 Grand mal and petit mal Arthritis 02/25/2009 Overview (02/25/2009): Knees and lower back Pulmonary embolism 02/25/2009 Encounters Date Type Department Care Team Description 11/14/2024 Patient Outreach [facility] - Care Coordination [address] [place] [address] Jessica Hyatt Outreach Preventive Care from Last 3 Months Immunizations Immunization Administration Dates Next Due INFLUENZA VACCINE, TRIV. (AF LURIA, FLUZONE TRIVALENT; 6MO+) (IIV3) 07/01/2012 DTaP VACCINE IM (6wk-6yrs) 10/28/2013 FLU VACCINE TRI IIV3 SPLIT IM (FLUVIRIN) 016 HEP A VACCINE, ADULT 10/28/2013 HEP B VACCINE ADOL/ADULT 2 DOSE 10/14/2005,08/28,06/12/2005 PNEUMOCOCCAL PPV VACCINE 07/03/2016 POLIO IPV 10/28/2013 Family History Relation Name Status Comments Brother Alive Father (Age 84) cancer-?pr ostate primary Mother Alive Sister Alive Social History Tobacco Use Types Packs/Day Years Used Date Smoking Tobacco: Former Cigarettes Q uit: 01/15/2007 Smokeless Tobacco: Never Tobacco Cessation:Counseling Given: Not Answered Alcohol Use Standard Drinks/Week Comments Yes 0 (1 standard drink = 0.6 oz pur e alcohol) glass of wine qd PHQ-2 Answer Date Recorded Patient Health Questionnaire-2 Score 0 10/08/2023 Comments No Sex and Gender Information Value Date Recorded Sex Assigned at Not on file Legal Sex Female 5:29 AM COMMUNITY SUPPORT SPECIALIST Gender Identity Not on file Sexual Orientation Not on file 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 Not on file Not on file Not on sukhdev e Last Filed Vital Signs Vital Sign Reading Time Taken Comments Blood Pressure 80/52 10/08/2023 10:13 AM CDT Pulse 63 10/08/2023 10:13 AM CDT Temperature 36.3 C (97.3 F) 05/28/2023 9:28 AM CDT Respiratory Rate 14 05/07/2023 10:43 AM CDT Oxygen Saturation 95% 10/08/2023 10:13 AM CDT Inhaled Oxygen Concentration - - Weight 64.4 kg (142 lb) 10/08/2023 10:13 AM CDT Height 167.6 cm (5' 5.98 ) 10/08/2023 10:13 AM C DT Body Mass Index 22.93 10/08/2023 10:13 AM CDT Plan of Treatment Health Maintenance Due Date Last Done Comments HEPATITIS C SCREENING 08/06/1966 ZOSTER VACCINE (1 of 2) 1998 Respiratory Syncytial Virus (RSV) Vaccine Pt: or over 60 yrs (1 - 1-dose 75+ series) 2023 DTAP/TDAP/TD VACCINES (2 - Tdap) 10/29/2023 10/28/2013 COVID-19 VACCINE (1 - 2024-25 season) 2024 DEPRESSION SCREENING 07/30/2024 10/08/2023, 05/28/2023, 05/28/2023, Additional history exists MEDICARE AWV CALENDAR YEAR 2024 10/08/2023, 01/10/2023 INFLUENZA VACCINE (Season Ended) 2035 07/03/2016, 07/01/2012 Postponed from 03/30/2025 (Patient Refused) HEPATITIS B VACCINE Discontinued 10/14/2005, 08/28/2005, 06/12/2005 PNEUMOCOCCAL VACCINE 50+ Discontinued 07/03/2016 BONE DENSITY TESTING Completed 09/25/2022 (Done Outside Per Report), 01/10/2022 HIB VACCINE Aged Out No longer eligi ble based on patient's age to complete this topic HPV VACCINE Aged Out No longer eligi ble based on patient's age to complete this topic MENINGOCOCCAL (Group B) VACCINE SHARED DECISION-MAKING Aged Out No longer eligible based on patient's age to complete this topic MENINGOCOCCAL GROUPS A/C/Y/W VACCINE Aged Out No longer eligible based on patient's age to complete this topic Medical Devices Implanted Type Area Bilingual Medical Assistant Device Identifier Shelf Expiration Date Model / Serial / Lot Mesh Srg Prln [id number] Flt Sq Cstm Knit Implanted:Qty: 1 on 04/30/2023 by Ubaldo Mcnamara MD at [facility] Left: Inguinal [employer] 11/27/2027 PMH / / [id number] Procedures Procedure Name Priority Date/Time Associated Diagnosis Comments DEXA BONE DENSITY 2 SITES 01/10/2022 from Last 3 Months or Most Recently Relevant to Health Maintenance Results * DEXA BONE DENSITY 2 SITES (01/10/2022) Anatomical Region Laterality Modality Other 01/10/2022 Narrative 01/10/2022 Ordered by an unspecified provider. us Scanned Document DEXA ORDERABLES Final Result from Last 3 Months or Most Recently Relevant to Health Maintenance Insurance MEDICARE [employer] [facility] MANAGED MEDICARE ADV Advance Directives Documents on File Type Date Recorded Patient Grey Goods Examiner Expl anation Adv Directive/Living Will/POA 05/07/2023 [facility]TH CARE DI RECTIVE & DURABLE POWER OF EMD TEACHER FOR HEALTHCARE Care Teams Environmental Associate Relationship Specialty Start Date End Date Delmi Jauregui MD [address] [place] [id number] PCP - General Internal Medicine 11/27/22 Naseem Isaac MD Neurology 01/16/12 Jessica Hyatt [address] [place] [address] Care Coordination Specialist Care Management 11/14/24
--- OUTSIDE RECORDS SUMMARY | 2024-12-16 09:05 | XMS_ITS | Encounter Summary ---
Author Organization [facility] Address [address] [place] [address] Care Team Providers Care Window Glazier Helper Name Role Phone Maricruz Grubbs MD Primary Care Provider Encounter Details Date Type Department Care Team (Late st Contact Info) Description 08/20/2006 Outpatient Historical Division of Neurology [address] [facility] [address] Jaison Amador MD [address] [facility] [address] [facility] [address] [place] [address] Social History Tobacco Use Types Packs/Day Years Used Date Smoking Tobacco: Never Assessed Comments Unknown Sex and Gender Information Value Date Recorded Sex Assigned at Not on file Legal Sex Female 5:27 AM SCREEN CLEANER Gender Identity Not on file Sexual Orientation Not on file documented as of this encounter Plan of Treatment Upcoming Encounters Date Type Department Care Team (Late st Contact Info) Description 03/24/2025 10:45 AM CDT Office Visit [facility] Heart and Vascular At [facility] [address] [address] [address] [place] [address] Rod Huddleston MD [address] [facility] [address] [place] [address] documented as of this encounter Visit Diagnoses Not on filedocumented in this encounter Care Teams Window Glazier Helper Relationship Specialty [place] [address] [place] [address] PCP - General Internal Medicine 10/27/16 documented as of this encounter
--- OUTSIDE RECORDS SUMMARY | 2024-12-16 09:05 | XMS_ITS | Encounter Summary ---
Author Organization [facility] Address [address] Attn: Epic Prelude ADT [place] [address] Care Team Providers Care Director Child Abuse Therapy Name Role Phone Maricruz Grubbs MD Primary Care Provider [phone] Encounter Details Date Type Department Care Team (Late st Contact Info) Description 02/27/1990 Outpatient Historical Sam Hardy MD NO ADDRESS ON FILE Social History Tobacco Use Types Packs/Day Years Used Date Smoking Tobacco: Never Assessed Comments Unknown Sex and Gender Information Value Date Recorded Sex Assigned at Not on file Legal Sex Female 5:27 AM SNOW 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 Gender Identity Not on file Sexual Orientation Not on file documented as of this encounter Plan of Treatment Upcoming Encounters Date Type Department Care Team (Late st Contact Info) Description 03/24/2025 10:45 AM CDT Office Visit [facility] Heart and Vascular At [facility] [address] [facility] [place] [address] Rod Huddleston MD [facility] [address] [place] [address] documented as of this encounter Visit Diagnoses Not on filedocumented in this encounter Care Teams Director Child Abuse Therapy Relationship Specialty Start [place] [address] [place] [address] PCP - General Internal Medicine 10/27/16 documented as of this encounter
--- OUTSIDE RECORDS SUMMARY | 2024-12-16 09:05 | XMS_ITS | Clinical Summary ---
Author Organization [facility] Administrative Offices Address [address] [place] [address] Care Team Providers Care Assembly Machine Set Up Mechanic Name Role Phone Maricruz Grubbs MD Primary Care Provider [phone] Allergies Active Allergy Reactions Criticality Noted Date Comments [place] Needle Oil Other (See Comments) 02/06/2017 Gets very sick Medications lamoTRIgine (LaMICtal) 200 mg tabletIndication s:Generalized epilepsy (CMS/HCC) Take 1 Tablet (200 mg) by mouth 2 times daily. Advised patient she needs to be seen prior to refills 180 Tablet 3 0 Active Saccharomyces boulardii (FLORASTOR) 250 mg Capsule Take by mouth. Acti ve vit B cmplx 3-FA-Vit C-Biotin (RENAVITE-RX RX) 1-60-300 mg-mg-mcg Tablet Take 1 Tablet by mouth daily. Active ascorbic acid, vitamin C, (VITAMIN C) 1,000 mg Tablet Take 1,000 mg by mouth daily. Active cholecalciferol 10 mcg/mL (400 unit/mL) Drops Take by mouth. Active topiramate (TOPAMAX) 25 mg tablet Take 25 mg by mouth 2 times daily. 2 Active isosorbide mononitrate (IMDUR) 30 mg Extended Release 24 hour tabletIndication s:Mild CAD,Recurrent chest pain TAKE 1 TABLET BY MOUTH DAILY IN THE MORNING 100 Tablet 2 4 Active Additional Information Patient taking differently: 30 mg, Take 0.5 tab daily, Reported on 10/09/2024 traZODone (DESYREL) 100 mg tablet Take 200 mg by mouth daily at bedtime. 5 Active Eliquis 5 mg tabletIndication s:History of pulmonary embolism Take 1 Tablet (5 mg) by mouth 2 times daily. 200 Tablet 3 5 Active omeprazole (PriLOSEC) 20 mg Capsule, Delayed Release(E.C.) Take 1 Capsule (20 mg) by mouth daily before breakfast. 90 Capsule 3 5 Active Active Problems Patient Care Coordination No te Formatting of this note migh t be different from the original. Rod Huddleston MD--[employer] ([facility] @ ) Problem Noted Date Diagnosed Date Esophageal dysphagia 09/28/2024 Pain on swallowing 09/28/2024 Hx of DVT and PE 05/01/2023 Altered mental status 05/01/2023 Status post inguinal hernia repair 05/01/2023 Dizziness 01/18/2021 Mixed hyperlipidemia 07/21/2020 Recurrent chest pain 08/02/2019 Elevated coronary artery calcium score 0 History of DVT (deep vein thrombosis) 08/02/2019 Mild CAD 08/02/2019 Seizure disorder 02/06/2017 DAMON (dyspnea on exertion) 11/07/2016 History of pulmonary embolism 05/03/2016 Atherosclerosis of aorta 02/06/2013 Overview (02/06/2013): Chest xray done 01/29/2012 Media section Seizure disorder 07/01/2012 Preop cardiovascular exam 10/25/2004 Closed fracture of unspecifi ed bone(s) of foot (except toes) 06/01/2004 Tobacco use disorder 06/01/2004 Anxiety state, unspecified 06/01/2004 Resolved Problems Problem Noted Date Diagnosed Date Resolved Date Acute encephalopathy 05/01/2023 023 Elevated serum creatinine 04/30/2023 SCREENING MAL NEOP-BREAST,UNSPEC 10/25/2004 07/01/2012 Attention to surgical dressings and sutures 10/25/2004 07/01/2012 Overview (08/24/2010): Updating IMO/ICD9 Code and Description OTALGIA NOS 10/25/2004 07/01/2012 CONVULSIONS, OTHER 06/01/2004 2 DEPRESSIVE DISORDER NEC 06/01/2004 12/09/2011 ACUTE SINUSITIS NOS 06/01/2004 07/01/20 12 LIPOMA NOS 06/01/2004 07/01/2012 CHRONIC CYSTITIS NEC 06/01/2004 012 Encounters Date Type Department Care Team Description 5 Results Follow-Up [facility] Gastroenterology [facility] [address] [facility] [address] [place] [address] Shayan David MD PATHOLOGY 5 9:18 AM CDT Anesthesia Event [facility] GI Lab S Pending Sale To [facility] [address] [place] [address] Naseem Perez MD Wanjama, James K, MIKE-Brayden 5 8:20 AM CDT - 5 9:00 AM CDT Surgery [facility] GI [facility] [place] [address] [place] [address] Shayan David MD ESOPHAGOGASTRODUODENOSCOPY 5 7:24 AM CDT - 5 10:35 AM CDT Hospital Encounter [facility] GI Lab S Pending Sale To [facility] [address] [place] [address] Shayan David MD Esophageal dysphagia Discharge Disposition: Home or Self Care 5 9:30 AM SAP ENTERPRISE 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 Office Visit [facility] At [place] [address] [facility] [address] [place] [address] Rod Huddleston MD Esophageal dysphagia (Primary Dx); Pain on swallowing; History of pulmonary embolism; Mild CAD; Recurrent chest pain; Mixed hyperlipidemia; History of DVT (deep vein thrombosis); Elevated coronary artery calcium score; Non-cardiac chest pain from Last 3 Months Immunizations Immunization Administration Dates Next Due Influenza Vaccine Split 3+ Yrs IM 07/01/2012 Family History Medical History Relation Name Comments Cancer Daughter Cancer Father prostate Hypertension Maternal Uncle 1 BETTIE Emphysema Maternal Uncle 2 Breast Cancer Mother Cancer Mother Asthma Neg Hx Bronchitis Neg Hx Colon Cancer Neg Hx Diabetes Neg Hx Heart Failure Neg Hx Lung Cancer Neg Hx Mesothelioma Neg Hx Ovarian Cancer Neg Hx Tuberculosis Neg Hx Relation Name Status Comments Daughter Father Maternal Uncle 1 BETTIE Alive Maternal Uncle 2 Mother Social History Tobacco Use Types Packs/Day Years Used Date Smoking Tobacco: Former Cigarettes 2 40 1 09/01/1966 - 07/01/2007 Smokeless Tobacco: Never Tobacco Cessation:Counseling Given: Not Answered Alcohol Use Standard Drinks/Week Comments Yes 1.7 (1 standard drink = 0.6 oz p ure alcohol) Feeling Safe Answer Date Recorded Are you in a relationship wi th someone who hurts you emotionally and/or physically? No 10/09/2024 Food Insecurity Answer Date Recorded Patient needs follow up regarding: Not on file 09/25/2023 Transportation Needs Answer Date Record ed Patient needs follow up regarding: Not on file 09/25/2023 Housing Stability Answer Date Recorded Patient needs follow up regarding: Not on file 09/25/2023 Utility Needs Answer Date Recorded Patient needs follow up regarding: Not on file 09/25/2023 Comments No Sex and Gender Information Value Date Recorded Sex Assigned at Not on file Legal Sex Female 5:27 AM SAP ENTERPRISE 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 Gender Identity Not on file Sexual Orientation Not on file Occupation Industry Job Start Date Job End Date Not on file Not on file Not on file Not on file Last Filed Vital Signs Vital Sign Reading Time Taken Comments Blood Pressure 120/60 10/09/2024 10:15 AM CDT Pulse 50 10/09/2024 10:15 AM CDT Temperature 36.4 C (97.6 F) 10/09/2024 9:46 AM CDT Respiratory Rate 18 10/09/2024 10:15 AM CDT Oxygen Saturation 97% 10/09/2024 10:15 AM CDT Inhaled Oxygen Concentration - - Weight 72.8 kg (160 lb 9.6 oz) 10/09/2024 7:35 A M CDT Height 167.6 cm (5' 6 ) 10/09/2024 7:35 AM CDT Body Mass Index 25.92 10/09/2024 7:35 AM CDT Plan of Treatment Upcoming Encounters Date Type Department Care Team (Late st Contact Info) Description 03/24/2025 10:45 AM CDT Office Visit [facility] [place] [address] [facility] [address] [place] [address] Rod Huddleston MD [address] [facility] [address] [place] [address] Health Maintenance Due Date Last Done Comments ZOSTER VACCINE (1 of 2) 1998 PNEUMOCOCCAL VACCINE 50+ YEA RS (2 of 2 - PCV) 07/03/2017 07/03/2016 RSV VACCINE (60+ or ) (1 - 1-dose 75+ series) 2023 DTAP/TDAP/TD VACCINES (2 - Tdap) 10/29/2023 10/29/19 14 INFLUENZA VACCINE (#1) 2024 07/03/2016, 2011 OSTEOPOROSIS SCREENING 01/10/2025 2, 06/09/2021, 09/11/2017, Additional history exists COLORECTAL SCREENING Discontinued 05/11/2021, 07/01/2006 (Previously completed) Colorectal Cancer Screening Discontinued FIT-DNA Q 3 years Discontinued FIT/FOBT Q 1 year Discontinued Flex Sig/CT Colonography Q 5 years Discontinued Procedures Procedure Name Priority Date/Time Associated Diagnosis Comments UPPER ENDOSCOPY REPORT 9:47 AM CDT PATHOLOGY Pathology 10/09/2024 9:45 AM CDT Esophageal dysphagia WV ESOPHAGOGASTRODUODENOSCOP Y TRANSORAL DIAGNOSTIC 10/09/2024 8:20 AM CDT Esophageal dysphagia HM DEXA SCAN Routine 03/14/2011 from Last 3 Months or Most Recently Relevant to Health Maintenance Results * UPPER ENDOSCOPY REPORT (10/09/2024 9:47 AM CDT) Narrative Procedure Note Shayan David MD - 10/09/2024 9:47 AM CDT [facility] Endoscopy Patient Name: Layla Reece Procedure Date: 10/09/2024 Date of : 1950 Attending MD: Shayan David MD, Procedure: Upper GI endoscopy Indications: Dysphagia Providers: Shayan David MD Referring MD: Maricruz Grubbs Medicines: Monitored Anesthesia Care Complications: No immediate complications. Procedure: Informed consent was obtained for the procedure, including moderate sedation after risks were discussed. Based on the pre-procedure assessment, including review of the patient's medical history, medications, allergies, and review of systems, the patient was deemed to be an appropriate candidate for sedation. A timeout was performed. Continuous ECG monitoring, pulse oximetry, blood pressure monitoring, and direct observation were performed. The was introduced through the mouth, and advanced to the duodenal bulb. The upper GI endoscopy was accomplished without difficulty. The patient tolerated the procedure well. Estimated Blood Loss: Estimated blood loss was minimal. Findings: Esophagogastric landmarks were identified: the Z-line was found at 34 cm, the gastroesophageal junction was found at 34 cm and the site of hiatal narrowing was found at 39 cm from the incisors. A 5 cm hiatal hernia was present. A moderate Schatzki ring was found at the gastroesophageal junction. A TTS dilator was passed through the scope. Dilation with an 18-19-20 mm x 5.5 cm CRE balloon (to a maximum balloon size of 20 mm) dilator was performed. The dilation site was examined and showed mild mucosal disruption and moderate improvement in luminal narrowing. Biopsy forceps were then used to further disrupt ring with bites of tissue sent to pathology.. 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 Mild oozing was seen at two locations in stomach without ulceration. Bleeding stopped without any interventions. The examined duodenum was normal. Impression: - Esophagogastric landmarks identified. - 5 cm hiatal hernia. - Moderate Schatzki ring. Dilated with an 18-19-20 mm x 5.5 cm CRE balloon (to a maximum balloon size of 20 mm). Biopsied. - A sleeve gastrectomy was found. - Normal examined duodenum. Recommendation: - Patient has a contact number available for emergencies. The signs and symptoms of potential delayed complications were discussed with the patient. Return to normal activities tomorrow. Written discharge instructions were provided to the patient. - Discharge patient to home. - Continue present medications. - Await pathology results. - Repeat upper endoscopy PRN. - Use Prilosec (omeprazole) 20 mg PO daily. - Resume Eliquis on 10/11 Shayan David MD 10/09/2024 9:47:02 AM This report has been signed electronically. Number of Addenda: [address]; [place] [address] Shayan David MD GI PROCEDURE ORDERABLES Final Result * PATHOLOGY (10/09/2024 9:45 AM CDT) CASE REPORT Surgical Pathology R eport Case: [id number] Authorizing Provider: Shayan David MD Collected: 10/09/2024 09:45 AM Ordering Location: [facility] GI Lab S [address] Received: 10/09/2024 01:56 PM Pathologist: Estelita Randhawa MD Specimen: Esophagus, distal, distal esophageal bx's 1:53 PM CDT [facility] FINAL DIAGNOSIS Distal esophagus, biopsy: -Benign squamous epithelium with no significant pathologic changes. 1:53 PM CDT [facility] at 1353 CDT GROSS DESCRIPTION Received in one container labeled Layla Gomezd and distal esophagus biopsies are 2 pieces of semitranslucent white-pink tissue measuring 0.3 and 0.4 cm in greatest dimension. All are submitted in cassette A1. [facility] 1:53 PM CDT [facility] MICROSCOPIC DESCRIPTION The slides are labeled [id number] and Layla Reece. Sections of distal esophagus fragments of mainly unremarkable, benign squamous epithelium with no acute inflammation or eosinophilic infiltrate. There is no evidence of intestinal metaplasia, dysplasia or malignancy. 5 1:53 PM CDT [facility] OPERATIVE PROCEDURE 1: ESOPHAGOGASTRODUODENOSCOP Y 1:53 PM CDT [facility] CLINICAL INFORMATION Esophageal dysphagia 1:53 PM CDT [facility] COMMENT Special stain, immunohistochemical, and/or in situ hybridization results are interpreted with controls that demonstrate appropriate staining reactions. Note on use of immunohistochemistry reagents and in situ hybridization probes: These tests were developed and their performance characteristics determined by [facility], Department of Laboratory Medicine. It has not been cleared or approved by the U.S. Food and Drug Administration. The FDA has determined that such clearance or approval is not necessary. The test is used for clinical purposes. It should not be regarded as investigational or for research. This laboratory is certified to perform high complexity testing. Frozen section/operating room consultation, gross examination and dissection, and case sign out may have been performed in part or completely in the following laboratories: [facility], [place] #[id number] [address] [place] [address] [facility], CLIA #[id number] [address] [place] [address] [id number] [address] [place] [address] This report was created with the [employer] voice-activated dictation system. Inherent to this system is the possibility of syntax, grammar, punctuation and other errors that could impact the interpretation of the report. If there are interpretative questions about aspects of this report, please contact the performing pathologist. 1:53 PM CDT [facility] Tissue (Esophagus, distal) Collection / Unknown 10/09/2024 9:45 AM CDT 10/09/2024 1:56 PM CDT Shayan David MD PATHOLOGY/CYTOLOGY ORDER JUAN Final Result Performing Organization Address City/[facility]/ZIP Co de Phone Number [facility] [id number] [address] [place] [address] * (ABNORMAL) DEXA SCAN (03/14/2011) St Other HEALTH MAINTENANCE [facility] from Last 3 Months or Most Recently Relevant to Health Maintenance Insurance [facility] [id number] [employer] MEDICARE SUPP Member Subscriber Plan / Payer (Ef fective 2021-Present) Name:Layla Reece Relation to Subscriber:Self Name:Layla Reece Payer ID:[id number] (NAIC) Group ID:Not on file Type:[facility] Address: [facility] [address] [place] [address] MEDICARE Advance Directives For more information, please contact: [phone] * Full Code (Latest Code Status on File) Date Activated Date Inactivated Comments 10/09/2024 7:35 AM 10/09/2024 1:02 PM * Full Code Date Activated Date Inactivated Comments 05/01/2023 12:59 AM 05/01/2023 7:06 PM Care Teams Assembly Machine Set Up Mechanic Relationship Specialty [place] [address] [place] [address] PCP - General Internal Medicine 10/27/16
--- OUTSIDE RECORDS SUMMARY | 2024-12-16 09:05 | XMS_ITS | Encounter Summary ---
Author Organization [facility] Address [address] [place] [address] Care Team Providers Care Slide Developer Name Role Phone JasminClaus nicole Laura HOFFMAN Primary Care Provider [phone] Encounter Details Date Type Department Care Team (Late Contact Info) Description 10/30/2024 ONE Change Message Enc [address] [address] [place] Provider test results Social History Tobacco Use Types Packs/Day Years Used Date Smoking Tobacco: Never Smokeless Tobacco: Never Alcohol Use Standard Drinks/Week Comments Yes 1.7 (1 standard drink = 0.6 oz p ure alcohol) 1 bottle PHQ-2 Answer Date Recorded Patient Health Questionnaire-2 Score 0 10/14/2024 Comments No Sex and Gender Information Value Date Recorded Sex Assigned at Female 09/16/2024 1:26 PM PERSONAL PROPERTY ASSESSOR Legal Sex Female 8:33 AM PERSONAL PROPERTY ASSESSOR Gender Identity Not on file Sexual Orientation Not on file documented as of this encounter Plan of Treatment Upcoming Encounters Date Type Department Care Team (Late Contact Info) Description 02/04/2025 9:40 AM CDT Office Visit [facility] Orthopedic [facility] - [place] [address] [place] [address] Hernan Jackson MD [address] [place] [address] 05/19/2025 9:00 AM CDT Office Visit [facility] [address] [place] [address] Clem Zhu MD [address] [place] [address] documented as of this encounter Visit Diagnoses Not on filedocumented in this encounter Care Teams Slide Developer Relationship Specialty Start Date End Date Claus Watson DO [address] [facility] [address] [place] [address] PCP - General INTERNAL MEDICINE 11/03/24 documented as of this encounter
--- OUTSIDE RECORDS SUMMARY | 2024-12-16 09:05 | XMS_ITS | Encounter Summary ---
Author Organization [facility] Address [address] [place] [address] Care Team Providers Care Washtub Worker Name Role Phone Maricruz Grubbs MD Primary Care Provider Encounter Details Date Type Department Care Team (Late st Contact Info) Description 04/27/2003 Outpatient Historical [address] [id number] Katie Rodriguez MD Social History Tobacco Use Types Packs/Day Years Used Date Smoking Tobacco: Never Assessed Comments Unknown Sex and Gender Information Value Date Recorded Sex Assigned at Not on file Legal Sex Female 5:27 AM WINDOW MAKER Gender Identity Not on file Sexual Orientation Not on file documented as of this encounter Plan of Treatment Upcoming Encounters Date Type Department Care Team (Late st Contact Info) Description 03/24/2025 10:45 AM CDT Office Visit [facility] At [place] [address] [facility] [address] [place] [address] Rod Huddleston MD [facility] [address] [facility] [address] [place], [place] [id number] documented as of this encounter Visit Diagnoses Not on filedocumented in this encounter Care Teams Washtub Worker Relationship Specialty [place] [address] [place] [address] PCP - General Internal Medicine 10/27/16 documented as of this encounter
--- OUTSIDE RECORDS SUMMARY | 2024-12-16 09:05 | XMS_ITS | Encounter Summary ---
Author Organization [facility] Address [address] [facility] Attn: Epic Prelude ADT [place] [address] Care Team Providers Care Edger Saw Operator Name Role Phone Maricruz Grubbs MD Primary Care Provider [phone] Encounter Details Date Type Department Care Team (Late st Contact Info) Description 10/30/1989 Outpatient Historical Sam Hardy MD NO ADDRESS ON FILE Social History Tobacco Use Types Packs/Day Years Used Date Smoking Tobacco: Never Assessed Comments Unknown Sex and Gender Information Value Date Recorded Sex Assigned at Not on file Legal Sex Female 5:27 AM DRAWBRIDGE OPERATOR Gender Identity Not on file Sexual Orientation Not on file documented as of this encounter Plan of Treatment Upcoming Encounters Date Type Department Care Team (Late st Contact Info) Description 03/24/2025 10:45 AM CDT Office Visit [facility] Heart [facility] Vascular At [facility] [address] [facility] [address] [place] [address] Rod Huddleston MD [facility] [address] [facility] [address] [place] [address] documented as of this encounter Visit Diagnoses Not on filedocumented in this encounter Care Teams Edger Saw Operator Relationship Specialty Start [place] [address] [place] [address] PCP - General Internal Medicine 10/27/16 documented as of this encounter
--- OUTSIDE RECORDS SUMMARY | 2024-12-16 09:05 | XMS_ITS | Encounter Summary ---
Author Organization [facility] Address [address] [place] [address] Care Team Providers Care Twine Winder Name Role Phone Maricruz Grubbs MD Primary Care Provider Encounter Details Date Type Department Care Team (Late st Contact Info) Description 06/14/2006 Outpatient Historical [facility] MRI DEPT Jaison Amador MD [address] [facility] [address] [place] [address] Grand Mal, not Intractabl (CMS/HCC) (Primary Dx) Social History Tobacco Use Types Packs/Day Years Used Date Smoking Tobacco: Never Assessed Comments Unknown Sex and Gender Information Value Date Recorded Sex Assigned at Not on file Legal Sex Female 5:27 AM ENVIRONMENTAL SAMPLING TECHNICIAN Gender Identity Not on file Sexual Orientation Not on file documented as of this encounter Plan of Treatment Upcoming Encounters Date Type Department Care Team (Late Contact Info) Description 03/24/2025 10:45 AM CDT Office Visit [facility] At [facility] [address] [facility] [address] [place] [address] Rod Huddleston MD [address] [facility] [address] [place] [address] documented as of this encounter Visit Diagnoses Diagnosis 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
--- OUTSIDE RECORDS SUMMARY | 2024-12-16 09:05 | XMS_ITS | Referral Summary ---
Author Organization [facility] [place] [address] Address [address] [place] [address] Care Team Providers Care Ceramics Machine Operator Name Role Phone Claus Watson DO Primary Care Provider [phone] Encounters Date Type Department Care Team Description 12/09/2024 Telephone [facility] Metabolic Weight Management [address] [place] [address] Russell ad, Ni, CPC Med Refill 11/10/2024 10:00 AM CDT Office Visit [facility] - [address] [place] [address] Stephany Thomas DO Laryngopharyngeal reflux (LPR) (Primary Dx); Chronic eczematous otitis externa of both ears from Last 3 Months Allergies Active Allergy Reactions Criticality Noted Date Comments [place] Needle Oil Other (See comments) Low 02/06/2017 Gets very sick [place] Tar Other (See comments) Low 02/06/2017 Gets very sick Gets very sick Medications Eliquis 5 mg tablet 0 Active isosorbide mononitrate ER (IMDUR) 30 mg 24 hr tablet Take 1 tablet (30 mg total) by mouth Taking half =15mg total 0 Active multivitamin tablet Take 1 tablet by mouth yard truck driver before breakfast Active ascorbic acid (VITAMIN C) [...] Active pen needle, diabetic (Comfort EZ Pen [place]) 32 gauge x /32 needleIndicatio ns:Class 2 obesity due to excess [...] - pt has [facility] getting [facility] Metabolic disorder 03/05/2024 Overweight (BMI 25.0-29.9) 03/05/2024 Dizziness and giddiness 12/10/2023 Assessment & Plan (12/10/2023 11:16 AM CDT): Have vision checked Hearing and Balance testing [facility] Dr[facility] Meek Beauchamp [phone] [facility] [place] [address] If Negative, will refer to balance physical therapy Sensorineural hearing loss (SNHL) of both ears 0 12/10/2023 Assessment & Plan (12/10/2023 11:17 AM CDT): Have vision checked Hearing and Balance testing [facility] Dr. Meek Beauchamp [phone] [address] [place] [address] If Negative, will refer to balance physical [...] ears Assessment & Plan (08/13/2020 9:56 AM COLLABORATIVE TEACHER): Pull back and up on the outer portion of the ear to help place hearing aid and have special inspector work with you on placement If still [...] year. 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 She has currently been under the practice at [facility], but is requesting transferring care to logistical difficulties getting to [facility]. She has been using lamotrigine 100 mg b.i.d.. She cites 2 generalized seizures this year both associated with regular medical compliance and sleep hygiene. She has no tolerability with medication at this time. She exhibits a normal neurological examination presently. I will increase her lamotrigine to 150 mg b.i.d.. I will retrieve medical records from her [facility] providers to facilitate transfer in care. I have reviewed with her that she needs to fulfill a 6 month seizure-free interval before resuming driving under [place] guidelines which she states understanding and agrees [...] hand Assessment & Plan (09/09/2021 1:13 PM COLLABORATIVE TEACHER): Avoid ear cleaning techniques Follow up in 6 months for ear check Assessment & Plan (02/28/2021 11:27 AM CDT): Avoid ear cleaning techniques Continue hearing aids Follow up in 6 months for ear check Assessment & Plan (08/13/2020 2:25 PM COLLABORATIVE TEACHER): Avoid ear cleaning techniques Avoid water to [...] better Assessment & Plan (08/13/2020 2:22 PM COLLABORATIVE TEACHER): Pull back and up on the outer portion of the ear to help place hearing aid and have special inspector work with you on placement If still [...] and petit mal Tobacco use disorder 06/01/2004 Social History Tobacco Use Types Packs/Day Years [...] on file Legal Sex Female 10:21 PM COLLABORATIVE TEACHER Gender Identity Female 08/13/2020 8:00 AM COLLABORATIVE TEACHER Sexual Orientation Straight 08/13/2020 8: 00 AM COLLABORATIVE TEACHER Last Filed Vital Signs Vital Sign Reading Time Taken Comments Blood Pressure 112/62 07/01/2024 11:12 AM COLLABORATIVE TEACHER Pulse 59 07/01/2024 11:12 AM COLLABORATIVE TEACHER Temperature 36.3 C (97.4 F) 07/01/2024 11:12 AM COLLABORATIVE TEACHER Respiratory Rate 16 07/01/2024 11:12 AM COLLABORATIVE TEACHER Oxygen Saturation 98% 07/01/2024 11:12 AM COLLABORATIVE TEACHER Inhaled Oxygen Concentration - - Weight 71.2 kg (157 lb) 11/10/2024 9:49 AM CDT Height 167.6 cm (5' 5.98 ) 11/10/2024 9:49 AM CD T Body Mass Index 25.35 11/10/2024 9:49 AM CDT Plan of Treatment Not on file Insurance [facility] MEDICARE ADVANTAGE [facility] MEDICARE ADVANTAGE [facility] MEDICARE ADVANTAGE Care Teams Ceramics Machine Operator Relationship Specialty Start Date End Date Claus Watson DO PCP - General Internal Medicine 04/14/20
--- OUTSIDE RECORDS SUMMARY | 2024-12-16 09:05 | XMS_ITS | Encounter Summary ---
Author Organization [facility] Address [address] [place] [address] Care Team Providers Care Webbing Tacker Name Role Phone Maricruz Grubbs MD Primary Care Provider [phone] Encounter Details Date Type Department Care Team (Late st Contact Info) Description 10/25/2004 Outpatient Historical [address] [place] [address] Katie Rodriguez MD Social History Tobacco Use Types Packs/Day Years Used Date Smoking Tobacco: Never Assessed Comments Unknown Sex and Gender Information Value Date Recorded Sex Assigned at Not on file Legal Sex Female 5:27 AM HYDROELECTRIC PLANT MAINTAINER Gender Identity Not on file Sexual Orientation Not on file documented as of this encounter Last Filed Vital Signs Vital Sign Reading Time Taken Comments Blood Pressure 110/70 10/25/2004 9:45 AM HYDROELECTRIC PLANT MAINTAINER Pulse 68 10/25/2004 9:45 AM HYDROELECTRIC PLANT MAINTAINER Temperature 36.2 C (97.1 F) 10/25/2004 9:45 AM HYDROELECTRIC PLANT MAINTAINER Respiratory Rate - - Oxygen Saturation - - Inhaled Oxygen Concentration - - Weight 75.8 kg (167 lb) 10/25/2004 9:45 AM HYDROELECTRIC PLANT MAINTAINER Height - - Body Mass Index - - documented in this encounter Plan of Treatment Upcoming Encounters Date Type Department Care Team (Late st Contact Info) Description 03/24/2025 10:45 AM CDT Office Visit [facility] [address] [place] [address] Rod Huddleston MD [address] [place] [address] [address] [place] [address] documented as of this encounter Visit Diagnoses Not on filedocumented in this encounter Care Teams Webbing Tacker Relationship Specialty [place] [address] [place] [address] PCP - General Internal Medicine 10/27/16 documented as of this encounter
--- OUTSIDE RECORDS SUMMARY | 2024-12-16 09:05 | XMS_ITS | Encounter Summary ---
Author Organization [facility] Address [address] [place] [address] Care Team Providers Care Network Engineer Administrator Name Role Phone Maricruz Grubbs MD Primary Care Provider Encounter Details Date Type Department Care Team (Late st Contact Info) Description 03/06/2005 Outpatient Historical [facility] [address] [facility] [address] Jaison Amador MD [address] [facility] [address] [place] [address] Social History Tobacco Use Types Packs/Day Years Used Date Smoking Tobacco: Never Assessed Comments Unknown Sex and Gender Information Value Date Recorded Sex Assigned at Not on file Legal Sex Female 5:27 AM PROPERTY ADMINISTRATOR Gender Identity Not on file Sexual Orientation Not on file documented as of this encounter Plan of Treatment Upcoming Encounters Date Type Department Care Team (Late st Contact Info) Description 03/24/2025 10:45 AM CDT Office Visit [facility] [address] [facility] [address] [address] Rod Huddleston MD [address] [facility] [address] [place] [address] documented as of this encounter Visit Diagnoses Not on filedocumented in this encounter Care Teams Network Engineer Administrator Relationship Specialty Start [place] [address] [address] PCP - General Internal Medicine 10/27/16 documented as of this encounter
--- OUTSIDE RECORDS SUMMARY | 2024-12-16 09:05 | XMS_ITS | Clinical Summary ---
Author Organization [facility] Address [address] [place] [address] Care Team Providers Care Chief Design Branch Name Role Phone Claus Watson DO Primary Care Provider [phone] Allergies Active Allergy Reactions Criticality Noted Date Comments Rawlins Tar Other (see comment),Headache Low 02/06/2017 Gets very sick Gets very sick Gets very sick Medications apixaban (ELIQUIS) 5 MG tablet Take 1 tablet (5 mg total) by mouth 2 (two) times daily. 5 Active lamoTRIgine (LAMICTAL) 200 MG tablet Take 1 tablet (200 mg total) by mouth 2 (two) times daily. 5 Active traZODone (DESYREL) 100 MG tablet Take 2 tablets (200 mg total) by mouth nightly at bedtime. 5 Active isosorbide mononitrate ER (IMDUR) 30 MG 24 hr tablet Take 0.5 tablets (15 mg total) by mouth daily. 5 Active Ascorbic Acid 1000 MG Tab Take 1,000 mg by mouth daily. Active B-yuhodsu-J-foli c acid 1 mg (GRANT-ALEXEY RX) Tab Take 1 tablet by mouth daily. Active fluticasone propionate (FLONASE) 50 MCG/ACT nasal spray 2 sprays by Nasal route daily. Active Multiple Vitamin (MULTI-VITAMIN) tablet Take 1 tablet by mouth. Active semaglutide (OZEMPIC) 1 mg/dose injection (PEN) Inject 1 mg into the skin once a week. 5 Active famotidine (PEPCID) 40 MG tablet Take 1 tablet (40 mg total) by mouth daily. 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 180 tablet 9 5 Active clotrimazole-bet amethasone (LOTRISONE) cream Apply topically 2 (two) times daily. 5 11/25/19 25 Hospital, Clinic, or Other Facility Administered Medication Ordered Dose Route Frequency Start Date End Date Status lidocaine (XYLOCAINE) 2 % injection 2 mLIndications:Primary osteoarthritis of knees, bilateral 2 mL Other Once 12/12/2024 12/12/2024 Ended hylan (SYNVISC ONE) injection 48 mgIndications:Primary osteoarthritis of knees, bilateral 48 mg IX Once 12/12/2024 12/12/2024 Ended hylan (SYNVISC ONE) injection 48 mgIndications:Primary osteoarthritis of knees, bilateral 48 mg IX Once 12/12/2024 12/12/2024 Ended Active Problems Problem Noted Date Diagnosed Date Laryngopharyngeal reflux (LPR) 11/10/2024 Hx of pulmonary embolus 10/14/2024 Seizures ([facility]) 10/14/2024 Angina pectoris 10/14/2024 Primary osteoarthritis of knees, bilateral 10/14 Overweight (BMI 25.0-29.9) 10/14/2024 Esophageal dysphagia 09/28/2024 Pain on swallowing 09/28/2024 Class II obesity 07/01/2024 History of obesity 05/13/2024 Abnormal finding on thyroid function test 2023 Abnormal metabolism 03/11/2024 Acute hyponatremia 03/11/2024 Anemia 03/11/2024 Arthralgia of right ankle 03/11/2024 Bradycardia 03/11/2024 Cobalamin deficiency 03/11/2024 Drug-induced hyperglycemia 03/11/2024 Fall 03/11/2024 Hyperkalemia 03/11/2024 Hypomagnesemia with secondary hypocalcemia 03/11 Iron deficiency 03/11/2024 Iron deficiency anemia 03/11/2024 Metabolic syndrome 03/11/2024 Hyperlipidemia 03/11/2024 Osteoporosis 03/11/2024 Other specified symptoms and signs involving the circulatory and respiratory systems 03/11/2024 Prediabetes 03/11/2024 Pulmonary infarction ([facility]) Right shoulder pain 03/11/2024 Substernal chest pain 03/11/2024 Symptoms of stress 03/11/2024 Temporal arteritis ([facility]) 03/11/2024 Exercise counseling 03/05/2024 Sensorineural hearing loss (SNHL) of both ears 0 12/10/2023 Major depressive disorder, s candis episode, severe without psychotic features ([facility]) 10/08/2023 Altered mental status 05/01/2023 Status post inguinal hernia repair 05/01/2023 Progressive pulmonary hypertension ([facility]) 01/10/2023 Other juvenile arthritis, un specified site ([facility]) 12/07/2021 Disorder of bone, unspecified 12/07/2021 Other reactive arthropathies , unspecified site ([facility]) 12/07/2021 Other fatigue 12/07/2021 Vitamin D deficiency, unspecified 12/07/2021 Sicca complex ([facility]) 06/30/2021 Dizziness and giddiness 01/18/2021 Chronic eczematous otitis externa of both ears 0 08/13/2020 Complex partial seizures mona lving to generalized tonic-clonic seizures ([facility]) 06/15/2020 Allergic rhinitis 04/14/2020 Bilateral impacted cerumen 04/14/2020 Sensorineural hearing loss ( SNHL) of left ear with restricted hearing of right ear 04/14/2020 Elevated coronary artery calcium score 0 History of deep venous thrombosis 08/02/2019 DAMON (dyspnea on exertion) 11/07/2016 Pain of foot 12/22/2014 Atherosclerosis of aorta 02/06/2013 Overview (11/11/2024): Chest xray done 01/29/2012 Media section Depression 01/16/2012 Insomnia 01/16/2012 Memory loss 01/16/2012 Overview (11/11/2024): Per pt, since ECT Pulmonary embolism ([facility]) 02/25/2009 Anxiety state 06/01/2004 Fracture of foot bone without toes, closed 06/01 Tobacco use disorder 06/01/2004 Resolved Problems Problem Noted Date Diagnosed Date Resolved Date Advance directive discussed with patient 01/16/2012 11/17/2024 Encounters Date Type Department Care Team Description 12/12/2024 10:20 AM CDT Office Visit [facility] Orthopedic & Sports Medicine [facility] [address] [place] [address] Nancy Lim PA-C Knee Pain (Bilat knee pain) 12/12/2024 Travel 12/03/2024 Scan [employer] INFO SRVCS Scanned, [facility] 12/02/2024 Telephone [facility] Medicine [facility] [address] [place] [address] Nancy Lim PA-C Information 11/11/2024 10:00 AM CDT Office Visit [facility] Multispecialty Care - [facility] [address] [place] [address] Clem Zhu MD Establish Care (seizures/) 11/11/2024 Travel 11/07/2024 9:20 AM CDT Office Visit [facility] Orthopedic & Sports [facility] [address] [place] [address] Nancy Lim PA-C New Patient (Bilateral knee pain) 11/07/2024 Travel 10/30/2024 [employer] Message Enc [facility] Family Medicine [place] [place] [address] [facility] Provider test results 10/21/2024 Telephone [facility]opedic [facility] Sports Medicine [facility] [address] [place] [address] Hernan Jackson MD Advice 10/14/2024 12:43 PM CDT - 10/14/2024 11:59 PM CDT Hospital Encounter [facility] [place] [address] Perico Mcintyre MD Discharge Disposition: Home or Self Care (Routine Discharge) 10/14/2024 11:20 AM CDT Office Visit [address] [address] Perico Mcintyre MD Establish Care; Knee Pain (Both knees are in pain) 10/14/[address] [address] Perico Mcintyre MD Xray/ultrasound Order 10/14/2024 Travel from Last 3 Months Social History Tobacco Use Types Packs/Day Years Used Date Smoking Tobacco: Never Smokeless Tobacco: Never Tobacco Cessation:Counseling Given: No Alcohol Use Standard Drinks/Week Comments Yes 1.7 (1 standard drink = 0.6 oz p ure alcohol) 1 bottle PHQ-2 Answer Date Recorded Patient Health Questionnaire-2 Score 0 10/14/2024 Comments No Sex and Gender Information Value Date Recorded Sex Assigned at Female 09/16/2024 1:26 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 Legal Sex Female 8:33 AM 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 Gender Identity Not on file Sexual Orientation Not on file Last Filed Vital Signs Vital Sign Reading Time Taken Comments Blood Pressure 102/58 12/12/2024 10:12 AM CDT Pulse 62 12/12/2024 10:12 AM CDT Temperature 36.4 C (97.6 F) 11/11/2024 10:07 AM CDT Respiratory Rate 14 11/11/2024 10:07 AM CDT Oxygen Saturation 98% 11/11/2024 10:07 AM CDT Inhaled Oxygen Concentration - - Weight 72.6 kg (160 lb) 12/12/2024 10:12 AM CDT Height 167.6 cm (5' 6 ) 12/12/2024 10:12 AM CDT Body Mass Index 25.82 12/12/2024 10:12 AM CDT Plan of Treatment Upcoming Encounters Date Type Department Care Team (Late st Contact Info) Description 02/04/2025 9:40 AM CDT Office Visit [facility] Orthopedic & Sports Medicine - [place] [address] [place] [address] Hernan Jackson MD [address] [place] [address] 05/19/2025 9:00 AM CDT Office Visit [facility]ty Care - [facility] [address] [place] [address] Clem Zhu MD [address] [place] [address] Health Maintenance Due Date Last Done Comments ASCVD LDL 1948 ASCVD Statin 1948 Hepatitis C 1966 Zoster Vaccines (1 of 2) 1998 Annual Medicare Wellness Visit 2013 RSV Immunization or 60+ Years (1 - 1-dose 75+ series) 2023 DTaP, Tdap and Td Vaccines ( 2 - Tdap) 10/29/2023 10/28/2013 Pneumococcal Vaccine: 50+ Ye ars (2 of 2 - PCV) 07/30/2025 07/03/2016 Postponed from 07/03 (Patient Refused) COVID-19 Vaccine (1 - 2023-2 5 season) 2025 Postponed from 03/30 (Patient Refused) Dexa Scan (General) Completed 01/10/2022 PHQ-2 (Physician [place]) Completed 10/14/2024 Meningococcal B Vaccine Aged Out No l onger eligible based on patient's age to complete this topic Meningococcal Vaccine Aged Out No riri kin eligible based on patient's age to complete this topic RSV Immunizations Under 20 Months Aged Out No longer eligible based on patient's age to complete this topic Procedures Procedure Name Priority Date/Time Associated Diagnosis Comments ARTHROCENTESIS MAJOR JOINT W/ ULTRASOUND GUIDANCE Routine 12/12/2024 10:20 AM CDT Primary osteoarthritis of knees, bilateral OUS GUIDE NEEDLE PLCMT ORTHO Routine 12/12/2024 10:17 AM CDT Primary osteoarthritis of knees, bilateral OUS GUIDE NEEDLE PLCMT ORTHO Routine 11/07/2024 9:55 AM CDT Primary osteoarthritis of knees, bilateral ARTHROCENTESIS MAJOR JOINT W/ ULTRASOUND GUIDANCE Routine 11/07/2024 9:20 AM CDT Primary osteoarthritis of knees, bilateral XR KNEE RT MIN 4V Routine 10/14/2024 1:0 6 PM CDT Primary osteoarthritis of knees, bilateral XR KNEE LT MIN 4V Routine 10/14/2024 1:0 6 PM CDT Primary osteoarthritis of knees, bilateral from Last 3 Months Results * ARTHROCENTESIS MAJOR JOINT W/ ULTRASOUND GUIDANCE (12/12/2024 10:20 AM CDT) Nancy Kiser PA-C - 12/12/2024 10:20 AM CDT Nancy Lim PA-C 12/12/2024 10:53 AM Bilateral knee Synvisc injections on 12/12/2024 10:20 AM Indications: pain Details: 22 G (25 G for lidocaine) needle, ultrasound-guided lateral approach Medications (Right): (6 ml Synvisc injected after local anesthesia with 2 cc 2% lidocaine without epi) Medications (Left): (6 ml Synvisc injected after local anesthesia with 2 cc 2% lidocaine without epi) Outcome: tolerated well, no immediate complications Procedure, treatment alternatives, risks and benefits explained, specific risks discussed. Consent was given by the patient. Patient was prepped and draped in the usual sterile fashion. Nancy Lim PA-C PROCEDURE/MINOR SURGICAL OR DERABLES Final Result * OUS GUIDE NEEDLE PLCMT ORTHO (12/12/2024 10:17 AM CDT) Only the most recent of2 resultswithin the time period is included. Anatomical Region Laterality Modality Ultrasound 12/12/2024 9:15 AM CDT Narrative 12/12/2024 9:15 AM CDT This report does not contain a radiologist's interpretation. Please review associated procedure and/or operative report. Procedure Note Carlos Alberto Brewer MD - 12/12/2024 This report does not contain a radiologist's interpretation. Please review associated procedure and/or operative report. us Nancy Lim PA-C ULTRASOUND Final Resul t * ARTHROCENTESIS MAJOR JOINT W/ ULTRASOUND GUIDANCE (11/07/2024 9:20 AM CDT) Narrative Nancy Lmi PA-C - 11/07/2024 9:20 AM CDT Nancy Lim PA-C 11/07/2024 11:07 AM Bilateral knee cortisone injections on 11/07/2024 9:20 AM Indications: pain Details: 25 G needle, ultrasound-guided lateral approach Medications (Right): (40 mg triamcinolone mixed with 3 cc 2% lidocaine without epi) Medications (Left): (40 mg triamcinolone mixed with 3 cc 2% lidocaine without epi) Outcome: tolerated well, no immediate complications Procedure, treatment alternatives, risks and benefits explained, specific risks discussed. Consent was given by the patient. Patient was prepped and draped in the usual sterile fashion. us Nancy Lim PA-C PROCEDURE/MINOR SURGICAL OR DERABLES Final Result * XR KNEE RT MIN 4V (10/14/2024 1:06 PM CDT) Anatomical Region Laterality Modality Knee Radiographic Anabel ging 10/16/2024 7:02 PM CDT Impressions 10/16/2024 7:03 PM CDT =====IMPRESSION:===== Degenerative changes of pwmu-ez-mgxxbmpb degree. No acute bony abnormalities. Ordered By: PERICO MCINTYRE Interpreted By: Bryant Hickey MD, 10/16/2024 7:02 PM Narrative 10/16/2024 7:03 PM CDT [address] [address] Examination: Right knee Exam date/time: 10/14/2024 1:05 PM Reason For Exam: right knee pain Comparison: No previous. Technique: 4 views of the left knee were obtained. Findings: There are no acute bony abnormalities. Degenerative changes of qjdc-ga-ilefemym degree worse in the anterior joint and the medial compartment. Vascular calcifications. There may be small effusion in the joint.. Procedure Note Bryant Hickey MD - 10/16/[address] [address] Examination: Right knee Exam date/time: 10/14/2024 1:05 PM Reason For Exam: right knee pain Comparison: No previous. Technique: 4 views of the left knee were obtained. Findings: There are no acute bony abnormalities. Degenerative changes hvfcst-er-koxjptpl degree worse in the anterior joint and the medialcompartment. Vascular calcifications. There may be small effusion in thejoint.. =====IMPRESSION:===== Degenerative changes of ifma-yf-zvitaxlw degree. No acute bony abnormalities. Ordered By: PERICO MCINTYRE Interpreted By: Bryant Hickey MD, 10/16/2024 7:02 PM us Perico Mcintyre MD GENERAL IMAGING Final Result * XR KNEE LT MIN 4V (10/14/2024 1:06 PM CDT) Anatomical Region Laterality Modality Knee Radiographic Anabel ging 10/16/2024 7:01 PM CDT Impressions 10/16/2024 7:02 PM CDT =====IMPRESSION:===== Degenerative changes of nlan-uq-hoxrveph degree with no acute bony abnormalities. Ordered By: PERICO MCINTYRE Interpreted By: Bryant Hickey MD, 10/16/2024 7:01 PM Narrative 10/16/2024 7:02 PM CDT [place] [address] Examination: Left knee Exam date/time: 10/14/2024 1:05 PM Reason For Exam: left knee pain Comparison: No previous. Technique: 4 views of the left knee were obtained. Findings: There are no acute bony abnormalities. There are degenerative changes of xuiy-dl-fuujjqtl degree. Patchy osteopenia. There may be small effusion at the joint. Vascular calcifications.. Procedure Note Bryant Hickey MD - 10/16/[address] [address] Examination: Left knee Exam date/time: 10/14/2024 1:05 PM Reason For Exam: left knee pain Comparison: No previous. Technique: 4 views of the left knee were obtained. Findings: There are no acute bony abnormalities. There are degenerativechanges of dcal-qq-yrrkeykq degree. Patchy osteopenia. There may be smalleffusion at the joint. Vascular calcifications.. =====IMPRESSION:===== Degenerative changes of sgoh-vj-ifiosbya degree with no acute bonyabnormalities. Ordered By: PERICO MCINTYRE Interpreted By: Bryant Hickey MD, 10/16/2024 7:01 PM us Perico Mcintyre MD GENERAL IMAGING Final Result from Last 3 Months Insurance [facility] Care Teams Chief Design Branch Relationship Specialty Start Date End Date Claus Watson DO [address] [place] [address] PCP - General INTERNAL MEDICINE 11/03/24
--- OUTSIDE RECORDS SUMMARY | 2024-12-16 09:05 | XMS_ITS | Encounter Summary ---
Author Organization [facility] Address [address] [place] [address] Care Team Providers Care Stone Gang Sawyer Name Role Phone Maricruz Grubbs MD Primary Care Provider Encounter Details Date Type Department Care Team (Latest Contact Info) Description 05/13/2005 Outpatient Historical [facility] Jaison Amador MD [address] [place] [phone] GEN CONVUL EPI W/O MENTN INTRACT ([facility]) (Primary Dx) Social History Tobacco Use Types Packs/Day Years Used Date Smoking Tobacco: Never Assessed Comments Unknown Sex and Gender Information Value Date Recorded Sex Assigned at Not on file Legal 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 Gender Identity Not on file Sexual Orientation Not on file documented as of this encounter Plan of Treatment Upcoming Encounters Date Type Department Care Team (Late st Contact Info) Description 03/24/2025 10:45 AM CDT Office Visit [facility] Vascular At [facility] [address] [place] [phone] Rod Huddleston MD [address] [place] [address] documented as of this encounter Visit Diagnoses Diagnosis Generalized convulsive epilepsy without mention of intractable epilepsy ([facility]/HCC)- Primary Generalized convulsive epilepsy without mention of intractable epilepsy documented in this encounter Care Teams Stone Gang Sawyer Relationship Specialty Start [place] [address] [place] [address] PCP - General Internal Medicine 10/27/16 documented as of this encounter
--- OUTSIDE RECORDS SUMMARY | 2024-12-16 09:05 | XMS_ITS | Encounter Summary ---
Author Organization [facility] Address [address] [place] [address] Care Team Providers Care Security Test Engineer Name Role Phone Maricruz Grubbs MD Primary Care Provider Encounter Details Date Type Department Care Team (Late Contact Info) Description 05/13/2005 Outpatient Historical [facility] S [facility] [place] [address] Jaison Amador MD [address] [facility] [address] [place] [address] Social History Tobacco Use Types Packs/Day Years Used Date Smoking Tobacco: Never Assessed Comments Unknown Sex and Gender Information Value Date Recorded Sex Assigned at Not on file 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 Gender Identity Not on file Sexual Orientation Not on file documented as of this encounter Plan of Treatment Upcoming Encounters Date Type Department Care Team (Late st Contact Info) Description 03/24/2025 10:45 AM CDT Office Visit [facility] Heart [facility] V[facility] At [facility] [address] [place] [address] Rod Huddleston MD [address] [place] [address] documented as of this encounter Visit Diagnoses Not on filedocumented in this encounter Care Teams Security Test Engineer Relationship Specialty Start [place] [address] [place] [address] PCP - General Internal Medicine 10/27/16 documented as of this encounter
--- OUTSIDE RECORDS SUMMARY | 2024-12-16 09:05 | XMS_ITS | Encounter Summary ---
Author Organization [facility] Address [address] [place] [address] Care Team Providers Care Technician Name Role Phone Maricruz Grubbs MD Primary Care Provider [phone] Encounter Details Date Type Department Care Team (Latest Contact Info) Description 06/19/2006 Outpatient Historical [facility] [place]o [place] V., PhD 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 Gender Identity Not on file Sexual Orientation Not on file documented as of this encounter Plan of Treatment Upcoming Encounters Date Type Department Care Team (Late st Contact Info) Description 03/24/2025 10:45 AM CDT Office Visit [facility] Heart and Vascular At [facility] [address] [place] [address] Rod Huddleston MD [address] [place] [address] documented as of this encounter Visit Diagnoses Diagnosis Generalized convulsive epilepsy without mention of intractable epilepsy (CMS/HCC)- Primary Generalized convulsive epilepsy without mention of intractable epilepsy documented in this encounter Care Teams Technician Relationship Specialty Start [place] [address] [place] [address] PCP - General Internal Medicine 10/27/16 documented as of this encounter
--- OUTSIDE RECORDS SUMMARY | 2024-12-16 09:05 | XMS_ITS | Encounter Summary ---
Author Organization [facility] Address 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 Gender Identity Not on file Sexual Orientation Not on file documented as of this encounter Plan of Treatment Upcoming Encounters Date Type Department Care Team (Late st Contact Info) Description 03/24/2025 10:45 AM CDT Office Visit [facility] Heart and Vascular At [place] [address] [place] [address] Rod Huddleston MD [facility] [address] [place], [place] [phone] documented as of this encounter Visit Diagnoses Not on filedocumented in this encounter Care Teams Manager Nc Relationship Specialty Start [place] [address] [place] [address] PCP - General Internal Medicine 10/27/16 documented as of this encounter
--- OUTSIDE RECORDS SUMMARY | 2024-12-16 09:05 | XMS_ITS | Encounter Summary ---
Author Organization [facility] Address 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 [address] [place], [place] [phone] documented as of this encounter Visit Diagnoses Not on filedocumented in this encounter Care Teams Needle Valve Operator Relationship Specialty Start [place] [address] [place] [address] PCP - General Internal Medicine 10/27/16 documented as of this encounter
--- OUTSIDE RECORDS SUMMARY | 2024-12-16 09:05 | XMS_ITS ---
Author Organization [facility] Address [address] [place] [address] Care Team Providers Care Repairer Typewriter Name Role Phone Naseem Isaac MD Unavailable [phone] Delmi Jauregui MD Primary Care Provider [phone] Jessica Hyatt Unavailable QMM & AWV - Vibrance Status:Identified (Enrolling) Start date:11/14/2024 Enrollment reason:Identified using claims or encounter data Case Team Name Relationship Phone Jessica Hyatt(Responsible Staff) Care Coordinatio n Specialist [phone] Continued Care and Services Coordination
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
--- OUTSIDE RECORDS SUMMARY | 2024-12-16 09:06 | XMS_ITS | Encounter Summary ---
Author Organization [facility] Address 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 [address] [place] [address] documented as of this encounter Visit Diagnoses Not on filedocumented in this encounter Care Teams Acid Bleacher Relationship Specialty Start [place] [address] [place] [address] PCP - General Internal Medicine 10/27/16 documented as of this encounter
== END 2024-12-16 08:53 | disposition home or self-care (01) ==
LOC: ANHIMG 08:54
PROVIDERS: PCP Internal Medicine; Visit Provider Clinical Nurse Specialist
DX: Z78.0 Asymptomatic menopausal state (principal); S42.021K Displaced fracture of shaft of right clavicle, subsequent encounter for fracture with nonunion; X58.XXXD Exposure to other specified factors, subsequent encounter; M85.852 Other specified disorders of bone density and structure, left thigh; M85.851 Other specified disorders of bone density and structure, right thigh
CPT/HCPCS: 77080

== ENCOUNTER 2025-04-24 10:13 | Outpatient (CLI) | payer MEDICARE, SELFPAY ==
--- OUTSIDE RECORDS SUMMARY | 2025-04-24 10:17 | XMS_ITS | Encounter Summary ---
Author Organization [facility] Address [address] [place] [address] Care Team Providers Care Miller Head Name Role Phone Maricruz Grubbs MD Primary Care Provider Encounter Details Date Type Department Care Team (Late st Contact Info) Description 05/29/2006 Outpatient Historical Division of Neurology 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
--- OUTSIDE RECORDS SUMMARY | 2025-04-24 10:17 | XMS_ITS | Encounter Summary ---
Author Organization [facility] Address 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
--- OUTSIDE RECORDS SUMMARY | 2025-04-24 10:17 | XMS_ITS | Encounter Summary ---
Author Organization [facility] Address [address] [place] [address] Care Team Providers Care Whitewater Rafting Guide Name Role Phone Maricruz Grubbs MD Primary Care Provider Encounter Details Date Type Department Care Team (Latest Contact Info) Description 05/13/2005 Outpatient Historical [facility] Jaison Amador MD [address] [facility] [address] [place] [address] GEN CONVUL EPI W/O MENTN INTRACT ([facility]) (Primary Dx) Social History Tobacco Use Types Packs/Day Years Used Date Smoking Tobacco: Never Assessed Comments Unknown Sex and Gender Information Value Date Recorded Sex Assigned at Not on file Legal Sex Female 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 Gender Identity Not on file Sexual Orientation Not on file documented as of this encounter Plan of Treatment Not on file documented as of this encounter Visit Diagnoses Diagnosis Generalized convulsive epilepsy without mention of intractable epilepsy ([facility])- Primary Generalized convulsive epilepsy without mention of intractable epilepsy documented in this encounter Care Teams Whitewater Rafting Guide Relationship Specialty Start [place] [address] [place] [address] PCP - General Internal Medicine 10/27/16 documented as of this encounter
--- OUTSIDE RECORDS SUMMARY | 2025-04-24 10:17 | XMS_ITS | Encounter Summary ---
Author Organization [employer] Address [address] [place] [address] Care Team Providers Care School Program Director Name Role Phone Maricruz Grubbs MD Primary Care Provider [phone] Encounter Details Date Type Department Care Team (Late st Contact Info) Description 10/25/2004 Outpatient Historical [address] [place] [address] Katie Rodirguez MD Social History Tobacco Use Types Packs/Day Years Used Date Smoking Tobacco: Never Assessed Comments Unknown Sex and Gender Information Value Date Recorded Sex Assigned at Not on file Legal Sex Female 5:27 AM TOWER HELPER Gender Identity Not on file Sexual Orientation Not on file documented as of this encounter Last Filed Vital Signs Vital Sign Reading Time Taken Comments Blood Pressure 110/70 10/25/2004 9:45 AM TOWER HELPER Pulse 68 10/25/2004 9:45 AM TOWER HELPER Temperature 36.2 C (97.1 F) 10/25/2004 9:45 AM TOWER HELPER Respiratory Rate - - Oxygen Saturation - - Inhaled Oxygen Concentration - - Weight 75.8 kg (167 lb) 10/25/2004 9:45 AM TOWER HELPER Height - - Body Mass Index - - documented in this encounter Plan of Treatment Not on file documented as of this encounter Visit Diagnoses Not on filedocumented in this encounter Care Teams School Program Director Relationship Specialty Start [place] [address] [place] [address] PCP - General Internal Medicine 10/27/16 documented as of this encounter
--- OUTSIDE RECORDS SUMMARY | 2025-04-24 10:17 | XMS_ITS | Clinical Summary ---
Author Organization [address] Address [address] [place] [address] Care Team Providers Care Rubber Vulcanizing Machine Operator Name Role Phone Claus Watson DO Primary Care Provider [phone] Allergies Active Allergy Reactions Criticality Noted Date Comments Wolfe Needle Oil Other (See comments) Low 02/06/2017 Gets very sick Wolfe Tar Other (See comments) Low 02/06/2017 Gets very sick Gets very sick Medications Eliquis 5 mg tablet 0 Active isosorbide mononitrate ER (IMDUR) 30 mg 24 hr tablet Take 1 tablet (30 mg total) by mouth Taking half =15mg total 0 Active multivitamin tablet Take 1 tablet by mouth harvesting supervisor before breakfast Active ascorbic acid (VITAMIN C) 1,000 mg tablet Take 1 tablet (1,000 mg total) by mouth daily Active topiramate (TOPAMAX) 25 mg tablet Take 1 tablet (25 mg total) by mouth 2 (two) times a day Active cholecalciferol, vitamin D3, (VITAMIN D3 ORAL) Take by mouth Active traZODone (DESYREL) 100 mg tablet 1 Active FLAXSEED ORAL Take by mouth Ac tive terbinafine (LamiSIL) 250 mg tablet Take 1 tablet (250 mg total) by mouth daily Active fluticasone propionate (FLONASE) 50 mcg/actuation nasal sprayIndications :Allergic rhinitis, unspecified seasonality, unspecified trigger Administer 2 sprays into each nostril daily 16 g 11 2 Active ergocalciferol, vitamin D2, (VITAMIN D2 ORAL) Take by mouth Active mv-mn/iron/folic acid/herb 190 (VITAMIN D3 COMPLETE ORAL) Take by mouth A ctive cyanocobalamin, vitamin B-12, (VITAMIN B-12 ORAL) Take by mouth Active pen needle, diabetic (Comfort EZ Pen [place]) 32 gauge x needleIndication s:Class 2 obesity due to excess calories without serious comorbidity with body mass index (BMI) of 37.0 to 37.9 in adult Use one needle weekly to inject ozempic, dx obesity 1 each 1 4 Active lamoTRIgine (LaMICtal) 200 mg tabletIndication s:Generalized epilepsy (HCC) TAKE 1 TABLET BY MOUTH TWICE DAILY 200 tablet 2 5 Active famotidine (PEPCID) 40 mg tabletIndication s:Laryngopharyng eal reflux (LPR) Take 1 tablet (40 mg total) by mouth nightly 90 tablet 3 5 11/06/19 26 Active semaglutide (OZEMPIC) 1 mg/dose (4 mg/3 mL) pen injector injection Inject 1 mg under the skin every 7 days 9 mL 1 5 Active Active Problems Problem Noted Date Diagnosed Date Laryngopharyngeal reflux (LPR) 11/10/2024 Assessment & Plan (11/10/2024 12:27 PM CDT): Pepcid 40 mg at bedtime Have Denture plates refit Lotrisone twice daily to outer portion of the ear canal for two weeks then as needed Avoid ear cleaning techniques Avoid water to ears Obesity, Class II, BMI 35-39.9 07/01/2024 BMI 23.0-23.9, adult 05/13/2024 History of [...] Arteriosclerosis of coronary artery 03/11/2024 Hyperlipidemia 03/11/2024 Adult BMI 37.0-37.9 kg/sq m 03/11/2024 Overweight 03/11/2024 Seizure disorder 03/11/2024 Seizure 03/11/2024 Syncope 03/11/2024 Dietary counseling 03/05/2024 Assessment & Plan (05/13/2024 4:30 [...] - pt has been getting from a [facility] Metabolic disorder 03/05/2024 Overweight (BMI 25.0-29.9) 03/05/2024 Dizziness and giddiness 12/10/2023 Assessment & Plan (12/10/2023 11:16 AM CDT): Have vision checked Hearing and Balance testing [facility] Dr. Meek Beauchamp [phone] [facility] [place] [address] If Negative, will refer to balance physical therapy Sensorineural hearing loss (SNHL) of both ears 0 12/10/2023 Assessment & Plan (12/10/2023 11:17 AM CDT): Have vision checked Hearing and Balance testing [facility] Dr. 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 She has currently been under the practice at [facility], but is requesting transferring care to logistical difficulties getting to [facility]. She has been using lamotrigine 100 mg b.i.d.. She cites 2 generalized seizures this year both associated with regular medical compliance and sleep hygiene. She has no tolerability with medication at this time. She exhibits a normal neurological examination presently. I will increase her lamotrigine to 150 mg b.i.d.. I will retrieve medical records from her [facility] providers to facilitate transfer in care. I have reviewed with her that she needs to fulfill a 6 month seizure-free interval before resuming driving under [place] guidelines which she states understanding and agrees [...] hand Assessment & Plan (09/09/2021 1:13 PM COMPONENTS ENGINEER): Avoid ear cleaning techniques Follow up in 6 months for ear check Assessment & Plan (02/28/2021 11:27 AM CDT): Avoid ear cleaning techniques Continue hearing aids Follow up in 6 months for ear check Assessment & Plan (08/13/2020 2:25 PM COMPONENTS ENGINEER): Avoid ear cleaning techniques Avoid water to [...] better Assessment & Plan (08/13/2020 2:22 PM COMPONENTS ENGINEER): Pull back and up on the outer portion of the ear to help place hearing aid and have christian science healer work with you on placement If still [...] Encounters Date Type Department Care Team Description 02/03/2025 10:20 AM CDT Office Visit [facility] Medicine Metabolic Weight Management [address] [facility] [address] [place] [address] Maricruz Grubbs MD Adult BMI 37.0-37.9 kg/sq m (Primary Dx); Encounter for weight management; Metabolic disorder; Obesity, Class II, BMI 35-39.9; Dietary counseling; Exercise counseling; Class 2 obesity due to excess calories without serious comorbidity with body mass index (BMI) of 37.0 to 37.9 in adult; Metabolic syndrome; Class II obesity; BMI 37.0-37.9, adult; Encounter for weight loss counseling; BMI 23.0-23.9, adult; History of obesity; Encounter for dietary counseling and surveillance; Overweight (BMI 25.0-29.9) from Last 3 Months Surgical History Surgery [...] alcohol? 4 or more times a week 02/03/2025 Q2: How many drinks containi ng alcohol do you have on a typical day when you are drinking? 1 or 2 Q3: How often do you have si x or more drinks on one occasion? Never 02/03/2025 Comments Unknown Sex and Gender Information Value Date Recorded Sex Assigned at Not on file Legal Sex Female 10:21 PM COMPONENTS ENGINEER Gender Identity Female 08/13/2020 8:00 AM COMPONENTS ENGINEER Sexual Orientation Straight 08/13/2020 8: 00 AM COMPONENTS ENGINEER Obstetrics History Last Filed Vital Signs Vital Sign Reading Time Taken Comments Blood Pressure 112/67 02/03/2025 10:28 AM CDT Pulse 55 02/03/2025 10:28 AM CDT Temperature 36.7 C (98 F) 02/03/2025 10:28 AM CDT Respiratory Rate 16 07/01/2024 11:12 AM COMPONENTS ENGINEER Oxygen Saturation 98% 02/03/2025 10:28 AM CDT Inhaled Oxygen Concentration - - Weight 71.9 kg (158 lb 9.6 oz) 02/03/2025 10:28 AM CDT Height 167.6 cm (5' 6) 02/03/2025 10:28 AM CDT Body Mass Index 25.6 02/03/2025 10:28 AM CDT Plan of Treatment Health Maintenance Due Date Last Done Comments Depression Screening 1950 Fall Risk Assessment 1950 Hepatitis C Screening 1950 Hepatitis B Screening 1966 Zoster Vaccine (1 of 2) 1998 Well Visit 65+ 2013 Pneumococcal vaccine 65+ (2 of 2 - PCV) 07/03/2017 1 09/03/2015 DTaP/Tdap/Td Vaccine (2 - Tdap) 10/29/2023 4 Osteoporosis Screening-Bone Density Scan 01/11/2024 01/10/2022 Influenza Vaccine (#1) 2025 07/03/2016, 2011 Breast Cancer Screening-Mammogram Discontinued 012 Insurance [facility] MEDICARE ADVANTAGE [id number] [facility] [place] [id number] [facility] MEDICARE ADVANTAGE Care Teams Rubber Vulcanizing Machine Operator Relationship Specialty Start Date End Date Claus Watson DO PCP - General Internal Medicine 04/14/20
--- OUTSIDE RECORDS SUMMARY | 2025-04-24 10:17 | XMS_ITS | Encounter Summary ---
Author Organization [facility] Address [address] [place] [address] Care Team Providers Care Healthcare Economics Consultant Name Role Phone Maricruz Grubbs MD Primary Care Provider Encounter Details Date Type Department Care Team (Latest Contact Info) Description 06/19/2006 Outpatient Historical [facility] Momo Chan V., PhD 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
--- OUTSIDE RECORDS SUMMARY | 2025-04-24 10:17 | XMS_ITS | Encounter Summary ---
Author Organization [facility] Address [facility] [place] [address] Care Team Providers Care Aircraft Maintenance Director Name Role Phone Perico Menard MD Primary Care Provider [phone] Claus Watson DO Primary Care Provider [phone] Encounter Details Date Type Department Care Team (Late st Contact Info) Description 09/16/2024 MyChart Message Enc [facility] - [address], [address] [place] [address] [phone] Clem Zhu MD [address] [place] [address] appointment Social History Tobacco Use Types Packs/Day Years Used Date Smoking Tobacco: Never Assessed Comments Unknown Sex and Gender Information Value Date Recorded Sex Assigned at Female 09/16/2024 1:26 PM SHOE PARTS CASER Legal Sex Female 8:33 AM SHOE PARTS CASER Gender Identity Not on file Sexual Orientation Not on file documented as of this encounter Plan of Treatment Upcoming Encounters Date Type Department Care Team (Late st Contact Info) Description 05/19/2025 9:00 AM CDT Office Visit [address], [address] [place] [address] [phone] Clem Zhu MD [address] [place] [address] documented as of this encounter Visit Diagnoses Not on filedocumented in this encounter Care Teams Aircraft Maintenance Director Relationship Specialty Start Date End Date Perico Menard MD [address] [facility] [place] [address] PCP - General FAMILY PRACTICE 09/16/24 10/20/24 Claus Watson DO [address] [facility] [address] [place] [address] PCP - General INTERNAL MEDICINE 11/03/24 documented as of this encounter
--- OUTSIDE RECORDS SUMMARY | 2025-04-24 10:17 | XMS_ITS | Encounter Summary ---
Author Organization [facility] Address 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
--- OUTSIDE RECORDS SUMMARY | 2025-04-24 10:17 | XMS_ITS | Encounter Summary ---
Author Organization [facility] Address [address] [place] [address] Phone Care Team Providers Care Business Applications Manager Name Role Phone Claus Watson DO Primary Care Provider [phone] Encounter Details Date Type Department Care Team [...] on file Legal Sex Female 10:21 PM INSURANCE ASSISTANT Gender Identity Female 08/13/2020 8:00 AM INSURANCE ASSISTANT Sexual Orientation Straight 08/13/2020 8: 00 AM INSURANCE ASSISTANT documented as of this encounter Plan of Treatment Not on file documented as of this encounter Procedures Procedure Name Priority Date/Time Associated Diagnosis Comments SCAN - LABS 05/31/2024 documented in this encounter Results * SCAN - LABS (05/31/2024) us Provider Scanning Final Result documented in this encounter Visit Diagnoses Not on filedocumented in this encounter Care Teams Business Applications Manager Relationship Specialty Start Date End Date Claus Watson DO PCP - General Internal Medicine 04/14/20 documented as of this encounter
--- OUTSIDE RECORDS SUMMARY | 2025-04-24 10:17 | XMS_ITS | Encounter Summary ---
Author Organization [facility] Address [address] [place] [address] Care Team Providers Care Twister Operator Name Role Phone Maricruz Grubbs MD Primary Care Provider [phone] Encounter Details Date Type Department Care Team (Late st Contact Info) Description 08/20/2006 Outpatient Historical Division of Neurology [address] [address] Jaison Amador MD [address] [place] [address] Social History Tobacco Use Types Packs/Day Years Used Date Smoking Tobacco: Never Assessed Comments Unknown Sex and Gender Information Value Date Recorded Sex Assigned at Not on file Legal Sex Female 5:27 AM SPECIAL EDUCATION PARA PROFESSIONAL Gender Identity Not on file Sexual Orientation Not on file documented as of this encounter Plan of Treatment Not on file documented as of this encounter Visit Diagnoses Not on filedocumented in this encounter Care Teams Twister Operator Relationship Specialty [place] [address] [place] [address] PCP - General Internal Medicine 10/27/16 documented as of this encounter
--- OUTSIDE RECORDS SUMMARY | 2025-04-24 10:17 | XMS_ITS | Encounter Summary ---
Author Organization [facility] Address [address] [place] [address] Care Team Providers Care Sleeping Car Service Attendant Name Role Phone Maricruz Grubbs MD Primary Care Provider [phone] Encounter Details Date Type Department Care Team (Late st Contact Info) Description 06/14/2006 Outpatient Historical [facility] MRI DEPT Jaison Amador MD [address] [facility] [address] [place] [phone] Grand Mal, not Intractabl (CMS/[facility]) (Primary Dx) Social History Tobacco Use Types Packs/Day Years Used Date Smoking Tobacco: Never Assessed Comments Unknown Sex and Gender Information Value Date Recorded Sex Assigned at Not on file Legal Sex Female 5:27 AM PERINATAL BREASTFEEDING ASSISTANT Gender Identity Not on file Sexual Orientation Not on file documented as of this encounter Plan of Treatment Not on file documented as of this encounter Visit Diagnoses Diagnosis 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
--- OUTSIDE RECORDS SUMMARY | 2025-04-24 10:17 | XMS_ITS | Encounter Summary ---
Author Organization [facility] Address [address] [facility] Attn: [place] [address] Care Team Providers Care Facilities Technician Name Role Phone Maricruz Grubbs MD Primary Care Provider [phone] Encounter Details Date Type Department Care Team (Late st Contact Info) Description 02/27/1990 Outpatient Historical Sam Hardy MD NO ADDRESS ON FILE Social History Tobacco Use Types Packs/Day Years Used Date Smoking Tobacco: Never Assessed Comments Unknown Sex and Gender Information Value Date Recorded Sex Assigned at Not on file Legal Sex Female 5:27 AM WAITER/WAITRESS THIRD CLASS Gender Identity Not on file Sexual Orientation Not on file documented as of this encounter Plan of Treatment Not on file documented as of this encounter Visit Diagnoses Not on filedocumented in this encounter Care Teams Facilities Technician Relationship Specialty Start [place] [address] [place] [address] PCP - General Internal Medicine 10/27/16 documented as of this encounter
--- OUTSIDE RECORDS SUMMARY | 2025-04-24 10:17 | XMS_ITS | Encounter Summary ---
Author Organization [facility] Address [address] [facility] Attn: [place] [address] Care Team Providers Care Sports Physical Therapist Name Role Phone Maricruz Grubbs MD Primary Care Provider [phone] Encounter Details Date Type Department Care Team (Late st Contact Info) Description 10/30/1989 Outpatient Historical Sam Hardy MD NO ADDRESS ON FILE Social History Tobacco Use Types Packs/Day Years Used Date Smoking Tobacco: Never Assessed Comments Unknown Sex and Gender Information Value Date Recorded Sex Assigned at Not on file Legal Sex Female 5:27 AM FILTER PULP WASHER Gender Identity Not on file Sexual Orientation Not on file documented as of this encounter Plan of Treatment Not on file documented as of this encounter Visit Diagnoses Not on filedocumented in this encounter Care Teams Sports Physical Therapist Relationship Specialty [place] [address] [place] [address] PCP - General Internal Medicine 10/27/16 documented as of this encounter
--- OUTSIDE RECORDS SUMMARY | 2025-04-24 10:17 | XMS_ITS | Encounter Summary ---
Author Organization [facility] Address [address] [place] [address] Care Team Providers Care Industrial Maintenance Repairer Helper Name Role Phone Maricruz Grubbs MD Primary Care Provider Encounter Details Date Type Department Care Team (Late st Contact Info) Description 04/27/2003 Outpatient Historical [address] [address] Katie Rodriguez MD Social History Tobacco Use Types Packs/Day Years Used Date Smoking Tobacco: Never Assessed Comments Unknown Sex and Gender Information Value Date Recorded Sex Assigned at Not on file Legal Sex Female 5:27 AM DIRECTOR OF ENTERPRISE APPLICATIONS Gender Identity Not on file Sexual Orientation Not on file documented as of this encounter Plan of Treatment Not on file documented as of this encounter Visit Diagnoses Not on filedocumented in this encounter Care Teams Industrial Maintenance Repairer Helper Relationship Specialty Start [place] [address] [place] [address] PCP - General Internal Medicine 10/27/16 documented as of this encounter
--- OUTSIDE RECORDS SUMMARY | 2025-04-24 10:17 | XMS_ITS | Encounter Summary ---
Author Organization [facility] Address [address] [place] [address] Care Team Providers Care Nurse Sitter Name Role Phone Maricruz Grubbs MD Primary Care Provider [phone] Encounter Details Date Type Department Care Team (Late st Contact Info) Description 07/21/2006 Outpatient Historical [facility] NEURO PSYCHOLOG[facility] Mom[place] V., [place] [address] [place] [address] Social History Tobacco Use Types Packs/Day Years Used Date Smoking Tobacco: Never Assessed Comments Unknown Sex and Gender Information Value Date Recorded Sex Assigned at Not on file Legal Sex Female 5:27 AM MINE DEPUTY Gender Identity Not on file Sexual Orientation Not on file documented as of this encounter Plan of Treatment Not on file documented as of this encounter Visit Diagnoses Not on filedocumented in this encounter Care Teams Nurse Sitter Relationship Specialty Start [place] [address] [place] [address] PCP - General Internal Medicine 10/27/16 documented as of this encounter
--- OUTSIDE RECORDS SUMMARY | 2025-04-24 10:17 | XMS_ITS | Encounter Summary ---
Author Organization [facility] Address [address] [place] [address] Care Team Providers Care Edger Operator Name Role Phone Maricruz Grubbs MD Primary Care Provider [phone] Encounter Details Date Type Department Care Team (Late st Contact Info) Description 10/02/2003 Outpatient Historical [address] [address] Katie Rodriguez MD Social History Tobacco Use Types Packs/Day Years Used Date Smoking Tobacco: Never Assessed Comments Unknown Sex and Gender Information Value Date Recorded Sex Assigned at Not on file Legal Sex Female 5:27 AM INFORMATION SECURITY ARCHITECT Gender Identity Not on file Sexual Orientation Not on file documented as of this encounter Plan of Treatment Not on file documented as of this encounter Visit Diagnoses Not on filedocumented in this encounter Care Teams Edger Operator Relationship Specialty [place] [address] [place] [address] PCP - General Internal Medicine 10/27/16 documented as of this encounter
--- OUTSIDE RECORDS SUMMARY | 2025-04-24 10:17 | XMS_ITS | Clinical Summary ---
Author Organization [facility] Address [address] [place] [address] Care Team Providers Care Branch Billing Payroll Clerk Name Role Phone Naseem Isaac MD Unavailable [phone] Delmi Jauregui MD Primary Care Provider [phone] Lizz Walker Unavailable Source Comments [facility],non-owned Affiliates and Associated Physician Practices is amultiple site organization consisting of ambulatory clinics and hospital sitesin [place], [place], [place] and [place]. This disclosure is being madepursuant to the Care Everywhere program and may not contain all information available regarding this patient. Last updated 18.[facility] Allergies Active Allergy Reactions Criticality Noted Date Comments [place] Tar Other Low 02/06/2017 Gets very sick Gets very sick Medications * Be aware that medications may not be up to date on this document. Alwaysverify current medications with the patient. Cholecalciferol (VITAMIN D3 PO) Acti ve Other Flaxseed Oil Active Ascorbic Acid 1000 MG Take 1 (one) tablet by mouth once daily Active B Lehqheq-E-Nlrdj Acid (GRANT-ALEXEY RX) 1 MG TABS Take [...] fluticasone propionate (Flonase) 50 MCG/ACT nasal spray Russell 2 (two) sprays into each nostril once [...] Encounters Date Type Department Care Team Description 04/14/2025 Patient Outreach [facility] - Care Coordination [place] [address] [place] [address] Lizz Walker from Last 3 Months Immunizations Immunization Administration [...] on file Legal Sex Female 5:29 AM INSIDE CONTRACTOR SALES Gender Identity Not on file Sexual Orientation [...] 10:13 AM CDT Height 167.6 cm (5' 5.98) 10/08/2023 10:13 AM C DT Body Mass Index 22.93 10/08/2023 10:13 AM CDT Plan of Treatment Health Maintenance Due Date Last Done Comments HEPATITIS C SCREENING 08/06/1966 ZOSTER VACCINE (1 of 2) 1998 Respiratory Syncytial Virus (RSV) Vaccine Pt: or over 60 yrs (1 - 1-dose 75+ series) 2023 DTAP/TDAP/TD VACCINES (2 - Tdap) 10/29/2023 10/28/2013 DEPRESSION SCREENING 07/30/2024 10/08/2023, 05/28/2023, 05/28/2023, Additional history exists MEDICARE AWV CALENDAR YEAR 2024 10/08/2023, 01/10/2023 COVID-19 VACCINE ( season) 2025 INFLUENZA VACCINE (#1) 2035 07/03/2016, 2011 Postponed from 03/30/2025 (Patient Refused) HEPATITIS B [...] this topic Medical Devices Implanted Type Area Bad Credit Collector Device Identifier Shelf Expiration Date Model / Serial / Lot Mesh Srg Prln 6x6in Flt Sq Cstm Knit Implanted:Qty: 1 on 04/30/2023 by Ubaldo Mcnamara MD at [facility] Left: Inguinal [employer] 11/27/2027 PMH / [...] Relevant to Health Maintenance Insurance MEDICARE [facility] [facility] MANAGED MEDICARE ADV Advance Directives Documents on File Type Date Recorded Patient [facility] Shift Lead Expl anation Adv Directive/Living Will/POA 05/07/2023 ADVANCE HLTH CARE DI RECTIVE & DURABLE POWER OF NITRO MAN FOR HEALTHCARE Care Teams Branch Billing Payroll Clerk Relationship Specialty Start Date End Date Delmi Jauregui MD [address] [facility] [address] [place] [address] PCP - General Internal Medicine 11/27/22 Naseem Isaac MD Neurology 01/16/12 Lizz Walker Care Coordination Specialist Care Management 04/14/25
--- OUTSIDE RECORDS SUMMARY | 2025-04-24 10:17 | XMS_ITS | Encounter Summary ---
Author Organization [facility] Address [address] [place] [address] Care Team Providers Care Infrastructure Tech Name Role Phone Maricruz Grubbs MD Primary Care Provider Encounter Details Date Type Department Care Team (Late st Contact Info) Description 05/13/2005 Outpatient Historical [facility] [place] [address] [place] [address] Jaison Amador MD [address] [place] [address] Social History Tobacco Use Types Packs/Day Years Used Date Smoking Tobacco: Never Assessed Comments Unknown Sex and Gender Information Value Date Recorded Sex Assigned at Not on file Legal Sex Female 5:27 AM BOOTH MANAGER Gender Identity Not on file Sexual Orientation Not on file documented as of this encounter Plan of Treatment Not on file documented as of this encounter Visit Diagnoses Not on filedocumented in this encounter Care Teams Infrastructure Tech Relationship Specialty Start [place] [address] [place] [address] PCP - General Internal Medicine 10/27/16 documented as of this encounter
--- OUTSIDE RECORDS SUMMARY | 2025-04-24 10:17 | XMS_ITS | Encounter Summary ---
Author Organization [facility] Address [address] [place] [address] Care Team Providers Care Master Dyer Name Role Phone Maricruz Grubbs MD Primary Care Provider Encounter Details Date Type Department Care Team (Late st Contact Info) Description 06/09/2004 Outpatient Historical [address] [place] [address] Katie Rodriguez MD Social History Tobacco Use Types Packs/Day Years Used Date Smoking Tobacco: Never Assessed Comments Unknown Sex and Gender Information Value Date Recorded Sex Assigned at Not on file Legal Sex Female 5:27 AM RESIDENTIAL GAS HEAT TECHNICIAN Gender Identity Not on file Sexual Orientation Not on file documented as of this encounter Last Filed Vital Signs Vital Sign Reading Time Taken Comments Blood Pressure 128/82 06/09/2004 9:30 AM RESIDENTIAL GAS HEAT TECHNICIAN Pulse 74 06/09/2004 9:30 AM RESIDENTIAL GAS HEAT TECHNICIAN Temperature 37 C (98.6 F) 06/09/2004 9:30 AM RESIDENTIAL GAS HEAT TECHNICIAN Respiratory Rate - - Oxygen Saturation - - Inhaled Oxygen Concentration - - Weight 72.6 kg (160 lb) 06/09/2004 9:30 AM RESIDENTIAL GAS HEAT TECHNICIAN Height - - Body Mass Index - - documented in this encounter Plan of Treatment Not on file documented as of this encounter Visit Diagnoses Not on filedocumented in this encounter Care Teams Master Dyer Relationship Specialty Start [place] [address] [place] [address] PCP - General Internal Medicine 10/27/16 documented as of this encounter
--- OUTSIDE RECORDS SUMMARY | 2025-04-24 10:17 | XMS_ITS | Encounter Summary ---
Author Organization [facility] Address [address] [place] [address] Care Team Providers Care Contract Associate Manager Name Role Phone Maricruz Grubbs MD Primary Care Provider [phone] Encounter Details Date Type Department Care Team (Late st Contact Info) Description 03/06/2005 Outpatient Historical Division of Neurology [address] [address] Jaison Amador MD [address] [place] [address] Social History Tobacco Use Types Packs/Day Years Used Date Smoking Tobacco: Never Assessed Comments Unknown Sex and Gender Information Value Date Recorded Sex Assigned at Not on file Legal Sex Female 5:27 AM GERMINATION WORKER Gender Identity Not on file Sexual Orientation Not on file documented as of this encounter Plan of Treatment Not on file documented as of this encounter Visit Diagnoses Not on filedocumented in this encounter Care Teams Contract Associate Manager Relationship Specialty Start [place] [address] [place] [address] PCP - General Internal Medicine 10/27/16 documented as of this encounter
--- OUTSIDE RECORDS SUMMARY | 2025-04-24 10:17 | XMS_ITS | Encounter Summary ---
Author Organization [facility] Address [address] [place] [address] Care Team Providers Care Sales Applications Engineer Name Role Phone JasminClaus nicole Laura HOFFMAN Primary Care Provider [phone] Encounter Details Date Type Department Care Team (Late Contact Info) Description 10/30/2024 [employer] Message Enc [facility] Family Medicine [address] [address] [employer], [facility] Provider test results Social History Tobacco Use Types Packs/Day Years Used Date Smoking Tobacco: Never Smokeless Tobacco: Never Alcohol Use Standard Drinks/Week Comments Yes 1.7 (1 standard drink = 0.6 oz p ure alcohol) 1 bottle PHQ-2 Answer Date Recorded Patient Health Questionnaire-2 Score 0 10/14/2024 Comments No Sex and Gender Information Value Date Recorded Sex Assigned at Female 09/16/2024 1:26 PM COLLEGE PHYSICS INSTRUCTOR Legal Sex Female 8:33 AM COLLEGE PHYSICS INSTRUCTOR Gender Identity Not on file Sexual Orientation Not on file documented as of this encounter Plan of Treatment Upcoming Encounters Date Type Department Care Team (Late Contact Info) Description 05/19/2025 9:00 AM CDT Office Visit [facility] [address] [facility], [address] [place] [address] Clem Zhu MD [address] [place] [address] documented as of this encounter Visit Diagnoses Not on filedocumented in this encounter Care Teams Sales Applications Engineer Relationship Specialty Start Date End Date Claus Watson DO [address] [facility] [address] [place] [address] PCP - General INTERNAL MEDICINE 11/03/24 documented as of this encounter
--- OUTSIDE RECORDS SUMMARY | 2025-04-24 10:17 | XMS_ITS | Encounter Summary ---
Author Organization [facility] Address [address] [place] [address] Care Team Providers Care Stunner Animal Name Role Phone Maricruz Grubbs MD Primary Care Provider [phone] Encounter Details Date Type Department Care Team (Late st Contact Info) Description 07/07/2003 Outpatient Historical [address] [address] Katie Rodriguez MD Social History Tobacco Use Types Packs/Day Years Used Date Smoking Tobacco: Never Assessed Comments Unknown Sex and Gender Information Value Date Recorded Sex Assigned at Not on file Legal Sex Female 5:27 AM DYNAMITER Gender Identity Not on file Sexual Orientation Not on file documented as of this encounter Plan of Treatment Not on file documented as of this encounter Visit Diagnoses Not on filedocumented in this encounter Care Teams Stunner Animal Relationship Specialty Start [place] [address] [place] [address] PCP - General Internal Medicine 10/27/16 documented as of this encounter
--- OUTSIDE RECORDS SUMMARY | 2025-04-24 10:18 | XMS_ITS ---
Author Organization [facility] Address [address] [facility] [place] [address] Care Team Providers Care Manufacturing Planner Name Role Phone Naseem Isaac MD Unavailable Delmi Jauregui MD Primary Care Provider [phone] Lizz Walker Unavailable QMM [facility] AWV - [facility] Status:Identified (Enrolling) Start date:04/14/2025 Enrollment reason:Identified using claims or encounter data Case Team Name Relationship Phone Lizz Walker(Responsible Staff) Care Coordina tion Specialist [phone] Continued Care and Services Coordination
--- OUTSIDE RECORDS SUMMARY | 2025-04-24 10:18 | XMS_ITS | Encounter Summary ---
Author Organization [facility] Address [address] [place] [address] Care Team Providers Care Cattle And Wheat Farmer Name Role Phone Naseem Isaac MD Unavailable [phone] Maricruz Grubbs MD Primary Care Provider [phone] Claus Watson DO Primary Care Provider Delmi Jauregui MD Primary Care Provider [phone] Delmi Jauregui MD Unavailable [phone] Delmi Jauregui MD Unavailable [phone] Delmi Jauregui MD Unavailable [phone] Milena Dubose Unavailable Jessica Hyatt Unavailable Lizz Walker Unavailable Encounter Details Date Type Department Care Team (Late st Contact Info) Description 02/08/2021 Lab Requisition [facility] Care DermPath Lab [address] [place] [id number] Soha Jones MD [address] [place] [address] Social History Tobacco Use Types Packs/Day Years Used Date Smoking Tobacco: Former Cigarettes Q uit: 01/15/2007 Smokeless Tobacco: Never Alcohol Use Standard Drinks/Week Comments Yes 0 (1 standard drink = 0.6 oz pur e alcohol) 4-5 a year Comments No Sex and Gender Information Value Date Recorded Sex Assigned at Not on file Legal Sex Female 5:29 AM DRILL SERGEANT Gender Identity Not on file Sexual Orientation Not on file documented as of this encounter Plan of Treatment Not on file documented as of this encounter Procedures Procedure Name Priority Date/Time Associated Diagnosis Comments DERMATOPATHOLOGY Routine 02/03/2021 3:33 AM CDT documented in this encounter Results * DERMATOPATHOLOGY (02/03/2021 3:33 AM CDT) Case Report Dermatopathology Report Case: [id number] Authorizing Provider: Soha Jones MD Collected: 02/03/2021 03:33 AM Ordering Location: [facility] DermPath Lab Received: 02/08/2021 07:08 AM Pathologist: Vanda Basilio MD Specimen: Skin, left jew 11:34 AM CDT DERMATOPATHOLOGY LABORATORY Final Diagnosis Specimen A. 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 11:34 AM CDT DERMATOPATHOLOGY LABORATORY Gross Description Specimen A: Received is one formalin filled container labeled with the patient's name and designated left jew. The specimen consists of a non-oriented ellipse of skin measuring [id number] bisected and inked, [id number] bisected and [id number] submitted whole. Jar 0. 11:34 AM CDT DERMATOPATHOLOGY LABORATORY Microscopic Description Specimen A. SKIN, left jew: There are numerous histiocytes and multinucleate giant [...] characteristic determined by the Dermatopathology Laboratory at [facility], directed by Dr. Merlin Scott. These tests need not be, and therefore are not, approved by the [place] Food and Drug Administration. The tests are used for clinical purposes. Billing Codes Specimen Charges Stain Charges 45109 1 1 11:34 AM CDT DERMATOPATHOLOGY LABORATORY Embedded Images 11:34 AM CDT DERMATOPATHOLOGY LABORATORY Pathology/Cytolo gy TISSUE SPECIMEN FROM SKIN / Unknown 02/03/2021 3:33 AM CDT 02/08/2021 7:08 AM CDT us Soha Jones MD LAB - PATHOLOGY/CYTOLOGY ORDERA BLES Final Result Performing Organization Address City/State/[facility] Co de Phone Number DERMATOPATHOLOGY LABORATORY [facility] - Department of Dermatology [address], [address] [phone] documented in this encounter Visit Diagnoses Not on filedocumented in this encounter Care Teams Cattle And Wheat Farmer Relationship Specialty Start Date End Date Maricruz Grubbs MD PCP - General Internal Medicine 06/21/17 05/15/21 Claus Watson DO PCP - General 05/16/21 11/26/22 Delmi Jauregui MD [address] [place] [address] PCP - General Internal Medicine 11/27/22 Delmi Jauregui MD [address] [place] [address] PCP - Formerly [facility] 02/27/2305/16 Delmi Jauregui MD [address] [place] [address] PCP - Attributed-[facility] [place] 10/29/23 Delmi Jauregui MD [address] [place] [address] PCP - Attributed-[facility] P4P 11/28/23 02/14/24 Naseem Isaac MD Neurology 01/16/12 Milena Dubose Care Coordination Specialist Care Management 02/26/24 02/26/24 Jessica Hyatt [address] [place] [id number] Care Coordination Specialist Care Management 11/14/24 12/29/24 Lizz Walker Care Coordination Specialist Care Management 04/14/25 documented as of this encounter
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
--- OUTSIDE RECORDS SUMMARY | 2025-04-24 10:18 | XMS_ITS | Clinical Summary ---
Author Organization [facility] Address [address] [place] [address] Care Team Providers Care Crude Unit Operator Name Role Phone Claus Watson DO Primary Care Provider [phone] Allergies Active Allergy Reactions Criticality Noted Date Comments Highland Tar Other (see comment),Headache Low 02/06/2017 Gets very sick Gets very sick Gets very sick Medications apixaban (ELIQUIS) 5 MG tablet Take 1 tablet (5 mg total) by mouth 2 (two) times daily. 09/23/2024 Active lamoTRIgine (LAMICTAL) 200 MG tablet Take 1 tablet (200 mg total) by mouth 2 (two) times daily. 09/22/2024 Active traZODone (DESYREL) 100 MG tablet Take 2 tablets (200 mg total) by mouth nightly at bedtime. 08/29/2024 Active isosorbide mononitrate ER (IMDUR) 30 MG 24 hr tablet Take 0.5 tablets (15 mg total) by mouth daily. 10/14/2024 Active Ascorbic Acid 1000 MG Tab Take 1,000 mg by mouth daily. Active O-ksgmxwa-C-foli c acid 1 mg (GRANT-ALEXEY RX) Tab Take 1 tablet by mouth daily. Active fluticasone propionate (FLONASE) 50 MCG/ACT nasal spray 2 sprays by Nasal route daily. Active Multiple Vitamin (MULTI-VITAMIN) tablet Take 1 tablet by mouth. Active semaglutide (OZEMPIC) 1 mg/dose injection (PEN) Inject 1 mg into the skin once a week. 08/15/2024 Active famotidine (PEPCID) 40 MG tablet Take 1 tablet (40 mg total) by mouth daily. 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 180 tablet 9 11/11/2024 Active Active Problems Problem Noted Date Diagnosed Date Laryngopharyngeal reflux (LPR) 11/10/2024 Hx of pulmonary embolus 10/14/2024 Seizures ([facility]) 10/14/2024 Angina pectoris 10/14/2024 Primary osteoarthritis of [...] respiratory systems 03/11/2024 Prediabetes 03/11/2024 Pulmonary infarction ([facility]) Right shoulder pain 03/11/2024 Substernal chest pain 03/11/2024 Symptoms of stress 03/11/2024 Temporal arteritis ([facility]) 03/11/2024 Exercise counseling 03/05/2024 Sensorineural hearing loss (SNHL) of both ears 0 12/10/2023 Major depressive disorder, s candis episode, severe without psychotic features ([facility]) 10/08/2023 Altered mental status 05/01/2023 Status post inguinal hernia repair 05/01/2023 Progressive pulmonary hypertension ([facility]) 01/10/2023 Other juvenile arthritis, un specified site ([facility]) 12/07/2021 Disorder of bone, unspecified 12/07/2021 Other reactive arthropathies , unspecified site ([facility]) 12/07/2021 Other fatigue 12/07/2021 Vitamin D deficiency, unspecified 12/07/2021 Sicca complex ([facility]) 06/30/2021 Dizziness and giddiness 01/18/2021 Chronic eczematous otitis externa of both ears 0 08/13/2020 Complex partial seizures mona lving to generalized tonic-clonic seizures ([facility]) 06/15/2020 Allergic rhinitis 04/14/2020 Bilateral impacted cerumen [...] (11/11/2024): Per pt, since ECT Pulmonary embolism ([facility]) 02/25/2009 Anxiety state 06/01/2004 Fracture of foot bone without toes, closed 06/01 Tobacco use disorder 06/01/2004 Resolved Problems Problem Noted Date Diagnosed Date Resolved Date Advance directive discussed with patient 01/16/2012 11/17/2024 Encounters Date Type Department Care Team Description 02/07/2025 Results Follow-Up [facility] Mult[facility]pec[facility] - [address], [address] [place] [address] Clem Zhu MD EEG awake or drowsy routine 02/05/2025 9:47 AM CDT - 02/05/2025 11:59 PM CDT Hospital Encounter [facility] [address] [place] [address] Clem Zhu MD Discharge Disposition: Home or Self Care (Routine Discharge) 02/05/2025 Travel 02/04/2025 9:20 AM CDT Office Visit [facility] Orthopedic [facility] - [place] [address] [place] [address] Hernan Jackson MD Garner, Nicole L, PA-C Follow Up (Bilateral knee pain ) 02/04/2025 Travel from Last 3 Months Immunizations Immunization Administration Dates Next Due Dtap (Acel-Immune) 10/28/2013 Hepatitis A (Havrix [address]) 10/28/2013 Influenza (Generic) 07/03/2016,07/01/2012 Pneumococcal (Pneumovax 23) 07/03/2016 Polio IPV (Ipol) 10/28/2013 Social History Tobacco Use Types Packs/Day Years Used Date Smoking Tobacco: Former Cigarettes 1.5 21 Q uit: 02/02/2007 Smokeless Tobacco: Never Tobacco Cessation:Counseling Given: No Alcohol Use Standard Drinks/Week Comments Yes 6 (1 standard drink = 0.6 oz pur e alcohol) 1 bottle PHQ-2 Answer Date Recorded Patient Health Questionnaire-2 Score 0 10/14/2024 Comments No Sex and Gender Information Value Date Recorded Sex Assigned at Female 09/16/2024 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 Legal Sex Female 8:33 AM PLANT ANATOMY TEACHER Gender Identity Not on file Sexual Orientation Not on file Last Filed Vital Signs Vital Sign Reading Time Taken Comments Blood Pressure 105/65 02/04/2025 9:42 AM CDT Pulse 53 02/04/2025 9:42 AM CDT Temperature 36.4 C (97.6 F) 11/11/2024 10:07 AM CDT Respiratory Rate 14 11/11/2024 10:07 AM CDT Oxygen Saturation 98% 11/11/2024 10:07 AM CDT Inhaled Oxygen Concentration - - Weight 71.7 kg (158 lb) 02/04/2025 9:42 AM CDT Height 167.6 cm (5' 6) 02/04/2025 9:42 AM CDT Body Mass Index 25.5 02/04/2025 9:42 AM CDT Plan of Treatment Upcoming Encounters Date Type Department Care Team (Late st Contact Info) Description 05/19/2025 9:00 AM CDT Office Visit [facility] - [facility] [address] [place] [id number] Clem Zhu MD [address] [place] [address] Health Maintenance Due Date Last Done Comments ASCVD LDL 1948 ASCVD Statin 1948 Hepatitis C 1966 Zoster Vaccines (1 of 2) 1998 Annual Medicare Wellness Visit 2013 RSV Immunization or 60+ Years (1 - 1-dose 75+ series) 2023 DTaP, Tdap and Td Vaccines ( 2 - Tdap) 10/29/2023 10/28/2013 COVID-19 Vaccine (1 - 2023-2 5 season) 2025 Pneumococcal Vaccine: 50+ Ye ars (2 of 2 - PCV) 07/30/2025 07/03/2016 Postponed from 07/03 (Patient Refused) Dexa Scan (General) Completed 01/10/2022 PHQ-2 (Physician [place]) Completed 10/14/2024 Meningococcal B Vaccine Aged Out No l onger eligible based on patient's age to complete this topic Meningococcal Vaccine Aged Out No riri kin eligible based on patient's age to complete this topic RSV Immunizations Under 20 Months Aged Out No longer eligible based on patient's age to complete this topic Procedures Procedure Name Priority Date/Time Associated Diagnosis Comments EEG SLEEP DEPRIVED Routine 02/05/2025 10 :00 AM CDT Localization-relate d focal epilepsy with complex partial seizures ([facility]) from Last 3 Months Results * EEG awake or drowsy routine (02/05/2025 10:00 AM CDT) Narrative [facility] - 02/05/2025 10:00 AM CDT Clem Zhu MD 02/07/2025 11:44 AM EEG REPORT Type of EEG study: Extended EEG with video (>60min). Requesting Provider: Dr. Zhu Date of Study: 02/05/2025 Reason for EEG: Ms. Wilson has history of nocturnal seizures with secondary generalization, with recent breakthrough in June. Technical Description and EEG Findings This is a 21-channel EEG recording utilizing the standard international 10-20 electrode placement along with additional electrodes to monitor eye movements; a single ECG channel was also utilized to record ECG. Bipolar and referential montages were utilized for analysis. EEG description: Awake: In the waking state, a continuous generalized medium-amplitude mixed-frequency background was noted; a symmetric posterior dominant rhythm of 9 Hz was recorded in the occipital regions bilaterally. The posterior dominant rhythm attenuated with eye opening and enhanced with eye closure. Drowsiness: There was waxing and waning of posterior dominant rhythm with appearance of diffuse synchronous and asynchronous theta-alpha activity during drowsiness. Provocative maneuvers: Photic stimulation: Intermittent photic stimulation was not completed, as per patient's request. ECG: Single ECG channel showed regular cardiac rhythm. Impression/Clinical Correlation This extended EEG (>60) recorded in awake and drowsy states is normal. Of note, a normal EEG does not rule out seizure/epilepsy. us Clem Zhu MD NEUROLOGY ORDERABLES Corrina cheng Result [facility] [address] [place] [address], from Last 3 Months Insurance [facility] Care Teams Crude Unit Operator Relationship Specialty Start Date End Date Claus Watson DO [address] [place] [address] PCP - General INTERNAL MEDICINE 11/03/24
--- OUTSIDE RECORDS SUMMARY | 2025-04-24 10:18 | XMS_ITS | Clinical Summary ---
Author Organization [facility] Administrative Offices Address [address] [place] [address] Care Team Providers Care Double Needle Operator Name Role Phone Maricruz Grubbs MD Primary Care Provider [phone] Allergies Active Allergy Reactions Criticality Noted Date Comments [place] Needle Oil Other (See Comments) 02/06/2017 Gets [...] be different from the original. 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 Gender Identity Not on file Sexual [...] A M CDT Height 167.6 cm (5' 6) 10/09/2024 7:35 AM CDT Body Mass Index 25.92 10/09/2024 7:35 AM CDT Plan of Treatment Health Maintenance Due Date Last Done Comments ZOSTER VACCINE (1 of 2) 1998 PNEUMOCOCCAL VACCINE 50+ YEA RS (2 of 2 - PCV) 07/03/2017 07/03/2016 RSV VACCINE (60+ or ) (1 - 1-dose 75+ series) 2023 DTAP/TDAP/TD VACCINES (2 - Tdap) 10/29/2023 10/29/19 14 OSTEOPOROSIS SCREENING 01/10/2025 , 06/09/2021, 09/11/2017, Additional history exists INFLUENZA VACCINE (#1) 2025 07/03/2016, 2011 COLORECTAL SCREENING Discontinued 05/11/2021, 07/01/2006 (Previously completed) Colorectal Cancer Screening Discontinued FIT-DNA Q 3 years Discontinued FIT/FOBT Q 1 year Discontinued Flex Sig/CT Colonography Q 5 years Discontinued Procedures Procedure Name Priority Date/Time Associated Diagnosis Comments DEXA SCAN Routine 03/14/2011 from Last 3 Months or Most Recently Relevant to Health Maintenance Results * (ABNORMAL) DEXA SCAN (03/14/2011) us St Other HEALTH MAINTENANCE Edited [facility] from Last 3 Months or Most Recently Relevant to Health Maintenance Insurance [facility] [id number] [employer] MEDICARE SUPP MEDICARE Advance Directives For more information, please contact: [phone] * Full Code (Latest Code Status on File) Date Activated Date Inactivated Comments 10/09/2024 7:35 AM 10/09/2024 1:02 PM * Full Code Date Activated Date Inactivated Comments 05/01/2023 12:59 AM 05/01/2023 7:06 PM Care Teams Double Needle Operator Relationship Specialty [place] [address] [place] [address] PCP - General Internal Medicine 10/27/16
[2025-04-24 18:08] LABS: Hematocrit 34.5 % (37.0-47.0); Hemoglobin 10.4 g/dL (12.0-15.0); Immature Granulocyte Percent A 0.3 % (0-0.5); Lymphocytes Absolute Auto 1.74 K/mm3 (0.9-3.2); Mean Corpuscular HGB Conc 30.1 g/dl (32-36); Mean Corpuscular Hemoglobin 23.9 pg (26-34); Mean Corpuscular Volume 79.1 fl (80-100); Nucleated Red Blood Cells Absolute Auto 0.000 K/mm3 (0.0-0.012); Nucleated Red Blood Cells Perc 0.0 % (0.0-0.2); Platelet Count Result 344 k/mm3 (150-375); Red Blood Count 4.36 M/mm3 (4.2-5.4); White Blood Count 6.5 K/mm3 (4.5-10.0)
[2025-04-24 18:27] LABS: Alanine Aminotransferase 26 U/L (6-35); Albumin Level 4.5 g/dL (3.5-5.1); Alkaline Phosphatase 97 U/L (38-126); Amylase 140 U/L (30-110); Anion Gap 7 mmol/L (4-12); Aspartate Amino Transferase 34 U/L (14-36); Bilirubin,Total 0.3 mg/dL (0.2-1.3); Blood Urea Nitrogen 10 mg/dL (7-17); Calcium 9.4 mg/dL (8.4-10.2); Carbon Dioxide 28 mmol/L (22-30); Chloride 102 mmol/L (98-107); Estimated Glomerular Filt Rate 56; Glucose 92 mg/dL (65-110); Lipase 201 U/L (23-300); Potassium 4.7 mmol/L (3.4-5.0); Sodium 137 mmol/L (137-145); Total Protein 7.2 g/dL (6.3-8.2)
[2025-04-24 18:48] LABS: Free T3 3.74 pg/mL (2.45-5.93); Free T4 Free Thyroxine 1.15 ng/dL (0.78-2.19)
[2025-04-24 19:04] LABS: Thyroid Stimulating Hormone 2.920 uIU/mL (0.465-4.680)
[2025-04-24 19:25] LABS: Vitamin B12 > 1000.0 pg/mL (239-931)
== END 2025-04-24 10:14 | disposition home or self-care (01) ==
LOC: ANHGOSHLAB 10:14
PROVIDERS: PCP Clinical Nurse Specialist; Visit Provider Clinical Nurse Specialist
DX: R79.89 Other specified abnormal findings of blood chemistry (principal); R10.11 Right upper quadrant pain; R94.4 Abnormal results of kidney function studies; D64.9 Anemia, unspecified; R56.9 Unspecified convulsions; R07.9 Chest pain, unspecified; M81.0 Age-related osteoporosis without current pathological fracture
CPT/HCPCS: 36415; 80053; 82150; 82306; 82607; 83690; 84439; 84443; 84481; 85025

== ENCOUNTER 2025-07-20 14:50 | Emergency (ER) | payer MEDICARE, SELFPAY ==
[2025-07-20 14:53] VITALS: BP 140/116; PULSE 87; RESP 16; TEMP 36.4; O2SAT 94
--- NOTE | 2025-07-20 14:54 | ECG_ITS ---
Test Date: 2025-07-20 14:59:41 Measurements Intervals [place] Rate: 75 P: 49 MA: 171 QRS: -4 QRSD: 109 T: 21 QT: 418 QTc: 468 Interpretive Statements SINUS RHYTHM MINIMAL Q WAVES- HIGH LATERAL LEADS BASELINE ARTIFACT- II, III, AVF, V4-V5 BORDERLINE ECG Compared to ECG 06/03/2024 12:29:06 HEART RATE HAS INCREASED Electronically Signed On 07-20-2025 15:03:53 CONTENT ENGINEER by Cecil Uribe D.O.
[2025-07-20 14:59] VITALS: PULSE 74; O2SAT 94
[2025-07-20 15:01] VITALS: O2SAT 93
--- NOTE | 2025-07-20 15:33 | ED.SEIZURE ---
HPI - Seizure General Chief Complaint: Seizure Stated Complaint: seizure Time Seen by Provider: 07/20/25 14:56 Source: patient and EMS Mode of arrival: EMS Limitations: no limitations History of Present Illness HPI Narrative: This is a 74-year-old female with history of epilepsy who presents the ED for a seizure. Per EMS, patient was playing cards at the [facility] when she had a seizure the lasted about 2 minutes. Patient reports that she feels like her baseline at this time. She has been taking her Lamictal as prescribed. Her last seizure was about a year ago. Denies any recent illnesses. She does reports feeling a little weak and having a headache at this time. Seizure History: Yes (most recent 2018) Related Data Home Medications ?Medication ?Instructions ?Recorded ?Confirmed ?Last Taken ?Type apixaban 5 mg tablet (Eliquis) 5 mg PO DAILY 09/29/19 04/24/25 05/08/21 History ascorbic acid (vitamin C) 1,000 mg 1 gm PO DAILY 09/29/19 04/24/25 05/10/21 History tablet cholecalciferol (vitamin D3) 125 5,000 unit PO DAILY 09/29/19 04/24/25 05/10/21 History mcg (5,000 unit) capsule vitamin B complex 1 cap PO DAILY 09/29/19 04/24/25 05/10/21 History semaglutide 0.25 mg or 0.5 mg (2 1 mg subcut WEEKLY 03/30/22 04/24/25 Unknown History mg/1.5 mL) subcutaneous pen injector (Ozempic) multivitamin 1 tablet PO DAILY 12/19/24 04/24/25 Unknown History lamotrigine 100 mg tablet 200 mg PO BID 04/24/25 04/24/25 Unknown History Allergies Allergy/AdvReac Type Severity Reaction Status Date / Time No Known Allergies Allergy Verified 07/20/25 15:04 Review of Systems Review of Systems: All systems reviewed & are unremarkable except as noted in HPI and below PMFSH Past Medical History Medical History Osteoporosis History of anesthesia reaction Seasonal allergies Rheumatoid arthritis Arthritis Anxiety Shortness of breath Bleeding gums Bleeding nose Ear pain Hearing loss Wears glasses Dizziness Chronic headaches Seizures DVT (deep venous thrombosis) Pulmonary embolism Surgical History Surgical History Hx of cataract surgery History of cosmetic plastic surgery Abdominoplasty, face lift, and neck lift 2013 History of gastrectomy lap sleeve gastectomy History of tonsillectomy 1952 H/O total hysterectomy 1993 H/O: hysterectomy Family History Family History Father Malignant neoplasm of prostate Other Neuropathy Social History Social History Smoking packs per day: 2 Smoking cigarettes per day: 40.0 Years smoked: 40 Smoking pack-years: 80.00 Smoking status: Former smoker Tobacco type: cigarettes Smoking end date: 07/30/06 Alcohol intake: current Drinks per week: 2 Alcohol use details: occasional Substance use: never Substance use type: does not use Lack of Transportation: No Lack of Food: Never True Current Housing: I Have Housing Concerned About Future Housing: No Difficulty Paying Gas/Electric Bills: No Difficulty Paying for Meds: No Currently Unemployed: No Difficulty w/ Childcare or Family Care: No Living arrangements: alone Gender identity (if verbalized by the patient): Female Spiritual care concerns: No Exam Narrative: APPEARANCE: No acute distress, nontoxic, resting in bed EYES: EOMI HEENT: Normocephalic, atraumatic, abrasions to the inner mandibular lip, bleeding controlled, superficial tongue laceration noted RESPIRATORY: No respiratory distress Clear to auscultation bilaterally with no rhonchi wheezing or rales. CARDIOVASCULAR: Regular rate and rhythm without murmurs rubs or gallops. ABDOMINAL: Soft, nontender, nondistended, no rebound or guarding MUSCULOSKELETAl: Moves all extremities. No clubbing, cyanosis or edema. NEURO: Awake and alert. Following commands, speech normal, no focal deficits SKIN:: Warm, dry. No rashes lesions or abrasions PSYCHIATRIC: Normal affect/mood, Course Vital Signs Vital signs: Vital Signs Temperature 97.6 F 07/20/25 14:53 Pulse Rate 87 07/20/25 14:53 Respiratory Rate 16 07/20/25 14:53 Blood Pressure 140/116 H 07/20/25 14:53 Pulse Oximetry 94 07/20/25 14:53 Oxygen Delivery Room Air 07/20/25 14:53 Temperature 97.6 F 07/20/25 14:53 Pulse Rate 73 07/20/25 16:58 Respiratory Rate 19 07/20/25 16:58 Blood Pressure 131/67 07/20/25 16:58 Pulse Oximetry 98 07/20/25 16:58 Oxygen Delivery Room Air 07/20/25 15:01 [facility] Narrative Medical decision making narrative: 74-year-old female Presenting for seizure. On initial evaluation patient was in no acute distress afebrile, hemodynamic stable. Differentials include but are not limited to: Seizure, electrolyte abnormality, drug ingestion, ICH, meningitis, encephalitis, hypoglycemia, alcohol withdrawal Notable exam findings: With superficial abrasions to her lower lip and superficial laceration to the right side of her tongue Patient was at her baseline on my initial evaluation. She was monitored for greater than hour and did not have any additional seizure activity. She has been taking her Lamictal as prescribed. Patient was deemed discharge at this time. She was advised follow-up with her neurologist as scheduled. Patient was agreeable to this plan. Given strict return precautions. Differential Diagnosis Differential Diagnosis: Seizure, electrolyte abnormality, drug ingestion, ICH, meningitis, encephalitis, hypoglycemia, alcohol withdrawal Discharge Plan Discharge Clinical Impression: Seizure Patient Disposition: Home Condition: Stable Instructions: Antibiotic Form, Epilepsy (ED) Additional Instructions: Continue to take your Lamictal as prescribed. Follow-up with your neurologist as scheduled. Return to the ED for any new or worsening symptoms. Patient Language: Greenlandic Prescriptions: No Action Eliquis 5 mg tablet 5 mg PO DAILY cholecalciferol (vitamin D3) 125 mcg (5,000 unit) capsule 5,000 unit PO DAILY vitamin B complex Capsule 1 cap PO DAILY ascorbic acid (vitamin C) 1,000 mg tablet 1 gm PO DAILY Ozempic 0.25 mg or 0.5 mg(2 mg/1.5 mL) pen injector 1 mg SUB-Q WEEKLY lamotrigine 100 mg tablet 200 mg PO BID multivitamin Tablet 1 tablet PO DAILY trazodone 100 mg tablet 200 mg PO QHS Qty: 180 1RF Follow-up/Referrals: Shakira Caro, SADIE, SALES AUDIT CLERK-C [Primary Care Provider, Internal Medicine]
[2025-07-20] MEDS: ACETAMINOPHEN 500 MG TABLET 1000 MG PO (16:55)
[2025-07-20 16:58] VITALS: BP 131/67; PULSE 73; RESP 19; O2SAT 98
--- OUTSIDE RECORDS SUMMARY | 2025-07-20 17:03 | XMS_ITS | Encounter Summary ---
Author Organization [facility] Address [address] [place] [address] Care Team Providers Care Mill Labor Supervisor Name Role Phone Maricruz Grubbs MD Primary Care Provider [phone] Encounter Details Date Type Department Care Team (Late st Contact Info) Description 05/29/2006 Outpatient Historical Division of Neurology 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
--- OUTSIDE RECORDS SUMMARY | 2025-07-20 17:03 | XMS_ITS | Encounter Summary ---
Author Organization [facility] Address [address] [place] [address] Care Team Providers Care Propagator Laborer Name Role Phone Maricruz Grubbs MD Primary Care Provider Encounter Details Date Type Department Care Team (Late st Contact Info) Description 03/27/2003 Outpatient Historical [address] 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
--- OUTSIDE RECORDS SUMMARY | 2025-07-20 17:03 | XMS_ITS | Encounter Summary ---
Author Organization [facility] Address [address] [facility] [place] [address] Care Team Providers Care Environmental Programs Specialist Name Role Phone Naseem Isaac MD Unavailable [phone] Maricruz Grubbs MD Primary Care Provider [phone] Claus Watson DO Primary Care Provider [phone] Delmi Jauregui MD Primary Care Provider Delmi Jauregui MD Unavailable [phone] Delmi Jauregui MD Unavailable [phone] Delmi Jauregui MD Unavailable [phone] Milena Dubose Unavailable Jessica Hyatt Unavailable Lizz Walker Unavailable Claus Watson DO Primary Care Provider [phone] Encounter Details Date Type Department Care Team (Late st Contact Info) Description 02/08/2021 Lab Requisition 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 Gender Identity Not on file Sexual Orientation Not on file documented as of this encounter Plan of Treatment Not on file documented as of this encounter Procedures Procedure Name Priority Date/Time Associated Diagnosis Comments DERMATOPATHOLOGY Routine 02/03/2021 3:33 AM CDT documented in this encounter Results * DERMATOPATHOLOGY (02/03/2021 3:33 AM CDT) Case Report Dermatopathology Report Case: [id number] Authorizing Provider: Soha Jones MD Collected: 02/03/2021 03:33 AM Ordering Location: [facility] Received: 02/08/2021 07:08 AM Pathologist: Vanda Basilio MD Specimen: Skin, left yarsanism 11:34 AM CDT DERMATOPATHOLOGY LABORATORY Final Diagnosis Specimen A. 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 11:34 AM CDT DERMATOPATHOLOGY LABORATORY Gross Description Specimen A: Received is one formalin filled container labeled with the patient's name and designated left yarsanism. The specimen consists of a non-oriented ellipse of skin measuring [id number] bisected and inked, [id number] bisected and [id number] submitted whole. Jar 0. 11:34 AM CDT DERMATOPATHOLOGY LABORATORY Microscopic Description Specimen A. SKIN, left yarsanism: There are numerous histiocytes and multinucleate giant [...] characteristic determined by the Dermatopathology Laboratory at [facility], directed by Dr. Merlin Scott. These tests need not be, and therefore are not, approved by the [place] Food and Drug Administration. The tests are used for clinical purposes. Billing Codes Specimen Charges Stain Charges 82687 1 1 11:34 AM CDT DERMATOPATHOLOGY LABORATORY Embedded Images 11:34 AM CDT DERMATOPATHOLOGY LABORATORY Pathology/Cytolo gy TISSUE SPECIMEN FROM SKIN / Unknown 02/03/2021 3:33 AM CDT 02/08/2021 7:08 AM CDT Soha Jones MD LAB - PATHOLOGY/CYTOLOGY ORDERA BLES Final Result DERMATOPATHOLOGY LABORATORY [facility] - Department of Dermatology [facility] Medicine [address] [place] [address], [address] [phone] documented in this encounter Visit Diagnoses Not on filedocumented in this encounter Care Teams Environmental Programs Specialist Relationship Specialty Start Date End Date Maricruz Grubbs MD PCP - General Internal Medicine 06/21/17 05/15/21 Claus Watson DO PCP - General 05/16/21 11/26/22 Delmi Jauregui MD [address] [place] [address] PCP - General Internal Medicine 11/27/22 06/15/25 Delmi Jauregui MD [address] [place] [address] PCP - Attributed-[facility] 02/27/2305/16 Delmi Jauregui MD [address] [place] [address] PCP - Attributed-[facility] 10/29/23 Delmi Jauregui MD [address] [place] [address] PCP - Attributed-[facility] P4P 11/28/23 02/14/24 Claus Watson DO [address] [place] [address] PCP - General Internal Medicine 06/16/25 Naseem Isaac MD Neurology 01/16/12 Milena Dubose Care Coordination Specialist Care Management 02/26/24 02/26/24 Jessica Hyatt [address] [facility] [address] [place] [address] Care Coordination Specialist Care Management 11/14/24 12/29/24 Lizz Walker Care Coordination Specialist Care Management 04/14/25 05/29/25 documented as of this encounter
--- OUTSIDE RECORDS SUMMARY | 2025-07-20 17:03 | XMS_ITS | Encounter Summary ---
Author Organization [facility] Address [address] [facility] Attn: [place] [address] Care Team Providers Care Commercial Energy Auditor Name Role Phone Maricruz Grubbs MD Primary Care Provider [phone] Encounter Details Date Type Department Care Team (Late st Contact Info) Description 02/27/1990 Outpatient Historical Sam Hardy MD NO ADDRESS ON FILE Social History Tobacco Use Types Packs/Day Years Used Date Smoking Tobacco: Never Assessed Comments Unknown Sex and Gender Information Value Date Recorded Sex Assigned at Not on file Legal 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
--- OUTSIDE RECORDS SUMMARY | 2025-07-20 17:03 | XMS_ITS | Encounter Summary ---
Author Organization [facility] Address [address] [place] [address] Care Team Providers Care Electrical Apprentice Name Role Phone Maricruz Grubbs MD Primary Care Provider [phone] Encounter Details Date Type Department Care Team (Late st Contact Info) Description 08/20/2006 Outpatient Historical Division of Neurology 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
--- OUTSIDE RECORDS SUMMARY | 2025-07-20 17:03 | XMS_ITS | Clinical Summary ---
Author Organization [address] Address [address] [place] [address] Care Team Providers Care Wire Mesh Filter Fabricator Name Role Phone Claus Watson DO Primary Care Provider [phone] Allergies Active Allergy Reactions Criticality Noted Date Comments [place] Needle Oil Other (See comments) Low 02/06/2017 Gets very sick [place] Tar Other (See comments) Low 02/06/2017 Gets very sick Gets very sick Medications Eliquis 5 mg tablet 0 Active isosorbide mononitrate ER (IMDUR) 30 mg 24 hr tablet Take 1 tablet (30 mg total) by mouth Taking half =15mg total 0 Active multivitamin tablet Take 1 tablet by mouth setup technician before breakfast Active ascorbic acid (VITAMIN C) [...] Active pen needle, diabetic (Comfort EZ Pen Howe) 32 gauge x needleIndication s:Class 2 obesity [...] - pt has been getting from a [facility] Metabolic disorder 03/05/2024 Overweight (BMI 25.0-29.9) 03/05/2024 Dizziness and giddiness 12/10/2023 Assessment & Plan (12/10/2023 11:16 AM CDT): Have vision checked Hearing and Balance testing [facility] Dr. Meek Beauchamp [phone] [facility] [place] [address] If Negative, will refer to balance physical therapy Sensorineural hearing loss (SNHL) of both ears 0 12/10/2023 Assessment & Plan (12/10/2023 11:17 AM CDT): Have vision checked Hearing and Balance testing [facility] Dr. Meek Beauchamp [phone] [address] [place] [address] If Negative, will refer to balance physical [...] ears Assessment & Plan (08/13/2020 9:56 AM TAILOR WOMEN'S GARMENT ALTERATION): Pull back and up on the outer portion of the ear to help place hearing aid and have yeast culture operator work with you on placement If still [...] year. 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 She has currently been under the practice at [facility], but is requesting transferring care to logistical difficulties getting to [facility]. She has been using lamotrigine 100 mg b.i.d.. She cites 2 generalized seizures this year both associated with regular medical compliance and sleep hygiene. She has no tolerability with medication at this time. She exhibits a normal neurological examination presently. I will increase her lamotrigine to 150 mg b.i.d.. I will retrieve medical records from her [facility] providers to facilitate transfer in care. I have reviewed with her that she needs to fulfill a 6 month seizure-free interval before resuming driving under [place] guidelines which she states understanding and agrees [...] hand Assessment & Plan (09/09/2021 1:13 PM TAILOR WOMEN'S GARMENT ALTERATION): Avoid ear cleaning techniques Follow up in 6 months for ear check Assessment & Plan (02/28/2021 11:27 AM CDT): Avoid ear cleaning techniques Continue hearing aids Follow up in 6 months for ear check Assessment & Plan (08/13/2020 2:25 PM TAILOR WOMEN'S GARMENT ALTERATION): Avoid ear cleaning techniques Avoid water to [...] better Assessment & Plan (08/13/2020 2:22 PM TAILOR WOMEN'S GARMENT ALTERATION): Pull back and up on the outer portion of the ear to help place hearing aid and have yeast culture operator work with you on placement If still [...] and petit mal Tobacco use disorder 06/01/2004 Surgical History Surgery Date Site/Laterality Comments TONSILLECTOMY [...] on file Legal Sex Female 10:21 PM TAILOR WOMEN'S GARMENT ALTERATION Gender Identity Female 08/13/2020 8:00 AM TAILOR WOMEN'S GARMENT ALTERATION Sexual Orientation Straight 08/13/2020 8: 00 AM TAILOR WOMEN'S GARMENT ALTERATION Last Filed Vital Signs Vital Sign Reading Time Taken Comments Blood Pressure 112/67 02/03/2025 10:28 AM CDT Pulse 55 02/03/2025 10:28 AM CDT Temperature 36.7 C (98 F) 02/03/2025 10:28 AM CDT Respiratory Rate 16 07/01/2024 11:12 AM TAILOR WOMEN'S GARMENT ALTERATION Oxygen Saturation 98% 02/03/2025 10:28 AM CDT [...] 2011 Breast Cancer Screening-Mammogram Discontinued 012 Insurance [facility] [employer] Address: [facility] [address] [place] [address] [facility] Address: [address] [address] [place] [address] [facility] Address: [address] [address] Care Teams Wire Mesh Filter Fabricator Relationship Specialty Start Date End Date Claus Watson DO PCP - General Internal Medicine 04/14/20
--- OUTSIDE RECORDS SUMMARY | 2025-07-20 17:03 | XMS_ITS | Encounter Summary ---
Author Organization [facility] Address [address] [place] [address] Care Team Providers Care Assistant Quality Manager Name Role Phone Maricruz Grubbs MD Primary Care Provider Encounter Details Date Type Department Care Team (Late st Contact Info) Description 10/02/2003 Outpatient Historical [address] 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
--- OUTSIDE RECORDS SUMMARY | 2025-07-20 17:03 | XMS_ITS | Clinical Summary ---
Author Organization [facility] Address [facility] [address] [place] [address] Care Team Providers Care Nuclear Radiologist Name Role Phone Claus Watson DO Primary Care Provider [phone] Allergies Active Allergy Reactions Criticality Noted Date Comments [place] Other (see comment),Headache Low 02/06/2017 Gets [...] Take 1,000 mg by mouth daily. Active R-prlazns-D-foli c acid 1 mg (GRANT-ALEXEY RX) Tab Take 1 tablet by mouth daily. Active fluticasone propionate (FLONASE) 50 MCG/ACT nasal spray 2 sprays by Nasal route daily. Active Multiple Vitamin (MULTI-VITAMIN) tablet Take 1 tablet by mouth. Active semaglutide (OZEMPIC) 1 mg/dose injection (PEN) Inject 1 mg into the skin once a week. 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 180 tablet 11 Active Additional Information Patient not taking.Reported on 06/09/2025 Active Problems Problem Noted Date Diagnosed Date Laryngopharyngeal reflux (LPR) 11/10/2024 Hx of pulmonary embolus 10/14/2024 Seizures 10/14/2024 Angina pectoris 10/14/2024 Primary osteoarthritis of [...] Symptoms of stress 03/11/2024 Temporal arteritis 03/11/2024 Exercise counseling 03/05/2024 Sensorineural hearing loss (SNHL) of both ears 0 12/10/2023 Major depressive disorder, s candis episode, severe without psychotic features 10/08/2023 Altered mental status 05/01/2023 Status post inguinal hernia repair 05/01/2023 Progressive pulmonary hypertension 01/10/2023 Other juvenile arthritis, unspecified site 12/07 Disorder of bone, unspecified 12/07/2021 Other reactive arthropathies, unspecified site 0 12/07/2021 Other fatigue 12/07/2021 Vitamin D deficiency, unspecified 12/07/2021 Sicca complex 06/30/2021 Dizziness and giddiness 01/18/2021 Chronic eczematous otitis externa of both ears 0 08/13/2020 Complex partial seizures mona lving to generalized tonic-clonic seizures 06/15/2020 Allergic rhinitis 04/14/2020 Bilateral impacted cerumen [...] (11/11/2024): Per pt, since ECT Pulmonary embolism 02/25/2009 Anxiety state 06/01/2004 Fracture of foot bone without toes, closed 06/01 Tobacco use disorder 06/01/2004 Resolved Problems Problem Noted Date Diagnosed Date Resolved Date Advance directive discussed with patient 01/16/2012 11/17/2024 Encounters Date Type Department Care Team Description 06/09/2025 10:20 AM AUTO PARTS HANDLER Office Visit [facility] Orthopedic & Sports Medicine - [place] [address] [place] [address] Nancy Lim, LEO Knee Pain (Follow up BL knees. MRI results.) 06/09/2025 Travel 05/22/2025 9:55 AM CDT - 05/22/2025 11:59 PM CDT Hospital Encounter [facility] [address] [place] [address] Hernan Suero MD Discharge Disposition: Home or Self Care (Routine Discharge) 05/22/2025 Travel 05/19/2025 9:00 AM CDT Office Visit [facility] - [facility] [address] [place] [address] Clem Zhu MD Follow Up (Localization-relat ed focal epilepsy with complex partial seizures) 05/19/2025 Travel 05/12/2025 10:00 AM CDT - 05/12/2025 11:59 PM CDT Hospital Encounter [facility] [address] [place] [address] Shakira Caro, PIPE MANUFACTURE SUPERVISOR Discharge Disposition: Home or Self Care (Routine Discharge) 05/12/2025 Travel 04/27/2025 Orders Only [facility] Orthopedic & Sports Medicine [facility] [address] [place] [address] Hernan Suero MD 04/27/2025 Telephone [facility] Orthopedic & [facility] [address] [place] [address] Nancy Lim, PAJuliusC Orders from Last 3 Months Immunizations Immunization Administration [...] Sex Assigned at Female 09/16/2024 1:26 PM AUTO PARTS HANDLER Legal Sex Female 8:33 AM AUTO PARTS HANDLER Gender Identity Not on file Sexual Orientation Not on file Last Filed Vital Signs Vital Sign Reading Time Taken Comments Blood Pressure 119/67 06/09/2025 10:13 AM AUTO PARTS HANDLER Pulse 55 06/09/2025 10:13 AM AUTO PARTS HANDLER Temperature 36.6 C (97.8 F) 05/19/2025 9:06 AM CDT Respiratory Rate 14 11/11/2024 10:07 AM CDT Oxygen Saturation 98% 05/19/2025 9:06 AM CDT Inhaled Oxygen Concentration - - Weight 72.6 kg (160 lb) 06/09/2025 10:13 AM AUTO PARTS HANDLER Height 167.6 cm (5' 6) 06/09/2025 10:13 AM AUTO PARTS HANDLER Body Mass Index 25.82 06/09/2025 10:13 AM AUTO PARTS HANDLER Plan of Treatment Upcoming Encounters Date Type Department Care Team (Late st Contact Info) Description 11/24/2025 9:00 AM CDT Office Visit [facility] Multispecialty Care - [facility] [address], [address] [place] [address] Clem Zhu MD [address] [place] [address] Health Maintenance Due Date Last Done Comments ASCVD LDL 1948 ASCVD Statin 1948 Hepatitis C 1966 Zoster Vaccines (1 of 2) 1998 Annual Medicare Wellness Visit 2013 RSV Immunization or 60+ Years (1 - 1-dose 75+ series) 2023 DTaP, Tdap and Td Vaccines ( 2 - Tdap) 10/29/2023 10/28/2013 COVID-19 Vaccine (1 - 2024-2 6 season) 2025 Influenza Adult (#1) 2025 07/03/2016, 07/01/2012 Pneumococcal Vaccine: 50+ Years (2 of 2 - PCV) 07/30/2025 07/03/2016 Postponed from 11/2016 (Patient Refused) Hepatitis A Vaccines Aged Out 10/28/2013 No long er eligible based on patient's age to complete this topic Dexa Scan (General) Completed 01/10/2022 PHQ-2 (Physician Nikolai) Completed 10/14/2024 Meningococcal B Vaccine Aged Out No l onger eligible based on patient's age to complete this topic Meningococcal Vaccine Aged Out No riri kin eligible based on patient's age to complete this topic RSV Immunizations Under 20 Months Aged Out No longer eligible b ased on patient's age to complete this topic Procedures Procedure Name Priority Date/Time Associated Diagnosis Comments MRI KNEE LT WO CON Routine 05/22/2025 10 :46 AM CDT Primary osteoarthritis of knees, bilateral MRI KNEE RT WO CON Routine 05/22/2025 10 :45 AM CDT Primary osteoarthritis of knees, bilateral CT ABD+PEL WWO CON Routine 05/12/2025 10 :32 AM CDT Right upper quadrant pain Abnormal levels of other serum enzymes from Last 3 Months Results * MRI KNEE LT WO CON (05/22/2025 10:46 AM CDT) Anatomical Region Laterality Modality Knee Magnetic Resonan ce 05/22/2025 1:40 PM CDT Impressions 05/22/2025 3:23 PM CDT IMPRESSION: Meniscal tears. Osteoarthritic changes. Joint effusions. See report. The attending radiologist has reviewed the image(s) and agrees with the content of this report. Ordered By: HERNAN SUERO Interpreted By: Smiley Miranda DO, 05/22/2025 1:40 PM Narrative 05/22/2025 3:23 PM CDT [address] [address] EXAMINATION: MRI KNEE RT WO CON, MRI KNEE LT WO CON EXAM TIME: 05/22/2025 10:06 AM HISTORY: Bilateral knee pain, left knee instability COMPARISON: Right and left knee radiographs 10/14/2024 TECHNIQUE: Multiplanar, multisequence magnetic resonance images of the right and left knee were obtained without intravenous contrast. FINDINGS: Left knee BONE: Marrow signal is within normal limits. No significant marrow edema. MENISCI: Horizontal tears to superior surface body lateral meniscus, best seen on coronal fat sat proton density sequence image 15. Anterior posterior horns of the medial meniscus are intact. Horizontal tear to inferior surface body medial meniscus best seen on coronal fat sat proton density sequence image 21 poorly seen on sagittal plane image 10. Anterior posterior horns of the medial meniscus are intact... LIGAMENTS: Increased signal in the distal anterior cruciate ligament which might indicate ligamentous strain or tear. Posterior cruciate ligaments intact.. The medial collateral ligament and lateral collateral ligamentous complex are intact. EXTENSOR MECHANISM: The distal quadriceps and patellar tendons are intact. The medial and lateral retinacula are intact. ARTICULAR CARTILAGE: There is thinning of the articular cartilage most prominently laterally. Small joint effusion. JOINT: Tricompartmental osteophyte formation. MISCELLANEOUS: None. Right knee BONE: Marrow signal is within normal limits. No significant marrow edema. Subchondral cysts within the posterior patella. MENISCI: Shallow tear inferior surface posterior horn medial meniscus. The body and anterior horn of the medial meniscus are intact. Some increased signal in the apex posterior horn lateral meniscus raising the concern of an occult meniscal tear or meniscal degeneration. Anterior horn lateral meniscus is intact.. LIGAMENTS: The anterior and posterior cruciate ligament are intact. The medial collateral ligament and lateral collateral ligamentous complex are intact. EXTENSOR MECHANISM: The distal quadriceps and patellar tendons are intact. The medial and lateral retinacula are intact. ARTICULAR CARTILAGE: Marked thinning of the articular cartilage lateral facet dorsal patellar surface consistent with osteoarthritis. Small joint effusion JOINT: Marginal osteophyte formation. MISCELLANEOUS: None. Procedure Note Hoang Shaw MD - 05/22/[address] [address] EXAMINATION: MRI KNEE RT WO CON, MRI KNEE LT WO CON EXAM TIME: 05/22/2025 10:06 AM HISTORY: Bilateral knee pain, left knee instability COMPARISON: Right and left knee radiographs 10/14/2024 TECHNIQUE: Multiplanar, multisequence magnetic resonance images of theright and left knee were obtained without intravenous contrast. FINDINGS: Left knee BONE: Marrow signal is within normal limits. No significant marrowedema. MENISCI: Horizontal tears to superior surface body lateral meniscus, bestseen on coronal fat sat proton density sequence image 15. Anteriorposterior horns of the medial meniscus are intact. Horizontal tear toinferior surface body medial meniscus best seen on coronal fat sat protondensity sequence image 21 poorly seen on sagittal plane image 10. Anteriorposterior horns of the medial meniscus are intact... LIGAMENTS: Increased signal in the distal anterior cruciate ligament whichmight indicate ligamentous strain or tear. Posterior cruciate ligamentsintact.. The medial collateral ligament and lateral collateral ligamentouscomplex are intact. EXTENSOR MECHANISM: The distal quadriceps and patellar tendons are intact.The medial and lateral retinacula are intact. ARTICULAR CARTILAGE: There is thinning of the articular cartilage mostprominently laterally. Small joint effusion. JOINT: Tricompartmental osteophyte formation. MISCELLANEOUS: None. Right knee BONE: Marrow signal is within normal limits. No significant marrow edema.Subchondral cysts within the posterior patella. MENISCI: Shallow tear inferior surface posterior horn medial meniscus. Thebody and anterior horn of the medial meniscus are intact. Some increasedsignal in the apex posterior horn lateral meniscus raising the concern ofan occult meniscal tear or meniscal degeneration. Anterior horn lateralmeniscus is intact.. LIGAMENTS: The anterior and posterior cruciate ligament are intact. Themedial collateral ligament and lateral collateral ligamentous complex areintact. EXTENSOR MECHANISM: The distal quadriceps and patellar tendons are intact.The medial and lateral retinacula are intact. ARTICULAR CARTILAGE: Marked thinning of the articular cartilage lateralfacet dorsal patellar surface consistent with osteoarthritis. Small jointeffusion JOINT: Marginal osteophyte formation. MISCELLANEOUS: None. IMPRESSION: Meniscal tears. Osteoarthritic changes. Joint effusions. See report. The attending radiologist has reviewed the image(s) and agrees with thecontent of this report. Ordered By: HERNAN SUERO Interpreted By: Smiley Miranda DO, 05/22/2025 1:40 PM us Hernan Suero MD MRI Final Result * MRI KNEE RT WO CON (05/22/2025 10:45 AM CDT) Anatomical Region Laterality Modality Knee Magnetic Resonan ce 05/22/2025 1:40 PM CDT Impressions 05/22/2025 3:23 PM CDT IMPRESSION: Meniscal tears. Osteoarthritic changes. Joint effusions. See report. The attending radiologist has reviewed the image(s) and agrees with the content of this report. Ordered By: HERNAN SUERO Interpreted By: Smiley Miranda DO, 05/22/2025 1:40 PM Narrative 05/22/2025 3:23 PM CDT [address] [address] EXAMINATION: MRI KNEE RT WO CON, MRI KNEE LT WO CON EXAM TIME: 05/22/2025 10:06 AM HISTORY: Bilateral knee pain, left knee instability COMPARISON: Right and left knee radiographs 10/14/2024 TECHNIQUE: Multiplanar, multisequence magnetic resonance images of the right and left knee were obtained without intravenous contrast. FINDINGS: Left knee BONE: Marrow signal is within normal limits. No significant marrow edema. MENISCI: Horizontal tears to superior surface body lateral meniscus, best seen on coronal fat sat proton density sequence image 15. Anterior posterior horns of the medial meniscus are intact. Horizontal tear to inferior surface body medial meniscus best seen on coronal fat sat proton density sequence image 21 poorly seen on sagittal plane image 10. Anterior posterior horns of the medial meniscus are intact... LIGAMENTS: Increased signal in the distal anterior cruciate ligament which might indicate ligamentous strain or tear. Posterior cruciate ligaments intact.. The medial collateral ligament and lateral collateral ligamentous complex are intact. EXTENSOR MECHANISM: The distal quadriceps and patellar tendons are intact. The medial and lateral retinacula are intact. ARTICULAR CARTILAGE: There is thinning of the articular cartilage most prominently laterally. Small joint effusion. JOINT: Tricompartmental osteophyte formation. MISCELLANEOUS: None. Right knee BONE: Marrow signal is within normal limits. No significant marrow edema. Subchondral cysts within the posterior patella. MENISCI: Shallow tear inferior surface posterior horn medial meniscus. The body and anterior horn of the medial meniscus are intact. Some increased signal in the apex posterior horn lateral meniscus raising the concern of an occult meniscal tear or meniscal degeneration. Anterior horn lateral meniscus is intact.. LIGAMENTS: The anterior and posterior cruciate ligament are intact. The medial collateral ligament and lateral collateral ligamentous complex are intact. EXTENSOR MECHANISM: The distal quadriceps and patellar tendons are intact. The medial and lateral retinacula are intact. ARTICULAR CARTILAGE: Marked thinning of the articular cartilage lateral facet dorsal patellar surface consistent with osteoarthritis. Small joint effusion JOINT: Marginal osteophyte formation. MISCELLANEOUS: None. Procedure Note Hoang Shaw MD - 05/22/2025 [facility] [address] [place], [place] [address] EXAMINATION: MRI KNEE RT WO CON, MRI KNEE LT WO CON EXAM TIME: 05/22/2025 10:06 AM HISTORY: Bilateral knee pain, left knee instability COMPARISON: Right and left knee radiographs 10/14/2024 TECHNIQUE: Multiplanar, multisequence magnetic resonance images of theright and left knee were obtained without intravenous contrast. FINDINGS: Left knee BONE: Marrow signal is within normal limits. No significant marrowedema. MENISCI: Horizontal tears to superior surface body lateral meniscus, bestseen on coronal fat sat proton density sequence image 15. Anteriorposterior horns of the medial meniscus are intact. Horizontal tear toinferior surface body medial meniscus best seen on coronal fat sat protondensity sequence image 21 poorly seen on sagittal plane image 10. Anteriorposterior horns of the medial meniscus are intact... LIGAMENTS: Increased signal in the distal anterior cruciate ligament whichmight indicate ligamentous strain or tear. Posterior cruciate ligamentsintact.. The medial collateral ligament and lateral collateral ligamentouscomplex are intact. EXTENSOR MECHANISM: The distal quadriceps and patellar tendons are intact.The medial and lateral retinacula are intact. ARTICULAR CARTILAGE: There is thinning of the articular cartilage mostprominently laterally. Small joint effusion. JOINT: Tricompartmental osteophyte formation. MISCELLANEOUS: None. Right knee BONE: Marrow signal is within normal limits. No significant marrow edema.Subchondral cysts within the posterior patella. MENISCI: Shallow tear inferior surface posterior horn medial meniscus. Thebody and anterior horn of the medial meniscus are intact. Some increasedsignal in the apex posterior horn lateral meniscus raising the concern ofan occult meniscal tear or meniscal degeneration. Anterior horn lateralmeniscus is intact.. LIGAMENTS: The anterior and posterior cruciate ligament are intact. Themedial collateral ligament and lateral collateral ligamentous complex areintact. EXTENSOR MECHANISM: The distal quadriceps and patellar tendons are intact.The medial and lateral retinacula are intact. ARTICULAR CARTILAGE: Marked thinning of the articular cartilage lateralfacet dorsal patellar surface consistent with osteoarthritis. Small jointeffusion JOINT: Marginal osteophyte formation. MISCELLANEOUS: None. IMPRESSION: Meniscal tears. Osteoarthritic changes. Joint effusions. See report. The attending radiologist has reviewed the image(s) and agrees with thecontent of this report. Ordered By: HERNAN SUERO Interpreted By: Smiley Miranda DO, 05/22/2025 1:40 PM us Hernan Suero MD MRI Final Result * CT ABD+PEL WWO CON (05/12/2025 10:32 AM CDT) Anatomical Region Laterality Modality Abdomen Computed Tomogra phy 05/19/2025 5:06 AM CDT Impressions 05/19/2025 5:11 AM CDT Impression: No acute finding. No mass. Referred By: SHAKIRA CARO Interpreted By: Aguila Rea MD, 05/19/2025 5:06 AM Narrative 05/19/2025 5:11 AM CDT [address] [address] Examination: CT ABD+PEL WWO CON Exam time: 05/12/2025 10:12 AM Clinical Information: Rt side abd pain, no changes to bowels Comparison:None Technique: IV contrast: 100 mL Isovue 370. Technical comments: Standard technique. Dose reduction: This CT exam was performed using one or more of the following dose reduction techniques: Automated exposure control, adjustment of the mA and/or kV according to patient size, and/or use of iterative reconstruction technique. Findings: LOWER CHEST Coronary artery disease. Small hiatal hernia. Mild lung base scarring, and distal airway mucous plugs. No infiltrates. No effusions. UPPER ABDOMEN Liver and bile ducts: No fatty liver or cirrhosis. 15 cm in length liver is normal size. No mass. No biliary dilatation. Gallbladder: No gallbladder wall thickening or pericholecystic fluid. Pancreas: Negative. Spleen: Negative. Small accessory splenule. Stomach: No acute finding. Surgical suture. RETROPERITONEUM Adrenals: Negative. Kidneys: Small kidney cysts. No mass. No acute finding. Lymph nodes: No lymphadenopathy in the abdomen or pelvis. BOWEL AND PERITONEUM Bowel: Normal in caliber and wall thickness. Colon diverticulosis. No appendicitis or diverticulitis. Free air or fluid: None. VASCULATURE Visceral arteries and portal venous system are normally patent. Arterial calcifications. No AAA. PELVIS No abnormality. BONES/SOFT TISSUES No significant lesion. Degenerative changes in the spine and joints. Procedure Note Aguila Rea MD - 05/19/[address] [address] Examination: CT ABD+PEL WWO CON Exam time: 05/12/2025 10:12 AM Clinical Information: Rt side abd pain, no changes to bowels Comparison:None Technique: IV contrast: 100 mL Isovue 370. Technical comments: Standard technique. Dose reduction: This CT exam was performed using one or more of thefollowing dose reduction techniques: Automated exposure control,adjustment of the mA and/or kV according to patient size, and/or use ofiterative reconstruction technique. Findings: LOWER CHEST Coronary artery disease. Small hiatal hernia. Mild lung base scarring,and distal airway mucous plugs. No infiltrates. No effusions. UPPER ABDOMEN Liver and bile ducts: No fatty liver or cirrhosis. 15 cm in length liveris normal size. No mass. No biliary dilatation. Gallbladder: No gallbladder wall thickening or pericholecystic fluid. Pancreas: Negative. Spleen: Negative. Small accessory splenule. Stomach: No acute finding. Surgical suture. RETROPERITONEUM Adrenals: Negative. Kidneys: Small kidney cysts. No mass. No acute finding. Lymph nodes: No lymphadenopathy in the abdomen or pelvis. BOWEL AND PERITONEUM Bowel: Normal in caliber and wall thickness. Colon diverticulosis. Noappendicitis or diverticulitis. Free air or fluid: None. VASCULATURE Visceral arteries and portal venous system are normally patent. Arterial calcifications. No AAA. PELVIS No abnormality. BONES/SOFT TISSUES No significant lesion. Degenerative changes in the spine and joints. Impression: No acute finding. No mass. Referred By: SHAKIRA CARO Interpreted By: Aguila Rea MD, 05/19/2025 5:06 AM us Shakira Caro PIPE MANUFACTURE SUPERVISOR CT Final Result from Last 3 Months Insurance [employer] MEDICARE Care Teams Nuclear Radiologist Relationship Specialty Start Date End Date Claus Watson DO [address] [place] [address] PCP - General INTERNAL MEDICINE 11/03/24
--- OUTSIDE RECORDS SUMMARY | 2025-07-20 17:03 | XMS_ITS | Encounter Summary ---
Author Organization [facility] Address [address] [place] [address] Care Team Providers Care Magazine Feeder Name Role Phone Maricruz Grubbs MD Primary Care Provider Encounter Details Date Type Department Care Team (Late st Contact Info) Description 04/27/2003 Outpatient Historical [address] [place] [address] Katie Rodriguez MD Social History Tobacco Use Types Packs/Day Years Used Date Smoking Tobacco: Never Assessed Comments Unknown Sex and Gender Information Value Date Recorded Sex Assigned at Not on file Legal Sex Female 5:27 AM CAUSTICS LOADER Gender Identity Not on file Sexual Orientation Not on file documented as of this encounter Plan of Treatment Not on file documented as of this encounter Visit Diagnoses Not on filedocumented in this encounter Care Teams Magazine Feeder Relationship Specialty [place] [address] [place] [address] PCP - General Internal Medicine 10/27/16 documented as of this encounter
--- OUTSIDE RECORDS SUMMARY | 2025-07-20 17:03 | XMS_ITS | Encounter Summary ---
Author Organization [facility] Address [address] [place] [address] Care Team Providers Care Housing Property Manager Name Role Phone Maricruz Grubbs MD Primary Care Provider [phone] Encounter Details Date Type Department Care Team (Late st Contact Info) Description 07/21/2006 Outpatient Historical [facility] [place] 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
--- OUTSIDE RECORDS SUMMARY | 2025-07-20 17:03 | XMS_ITS | Clinical Summary ---
Author Organization [facility] Administrative Offices Address [address] [place] [address] Care Team Providers Care Welt Beater Name Role Phone Maricruz Grubbs MD Primary Care Provider [phone] Allergies Active Allergy Reactions Criticality Noted Date Comments Skamania Needle Oil Other (See Comments) 02/06/2017 Gets [...] be different from the original. 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 Gender Identity Not on file Sexual [...] Results * (ABNORMAL) DEXA SCAN (03/14/2011) us Stl Other HEALTH MAINTENANCE [facility] from Last 3 Months or Most Recently Relevant to Health Maintenance Insurance [facility] [id number] AETNA MEDICARE SUPP MEDICARE Advance Directives For more information, please contact: [phone] * Full Code (Latest Code Status on File) Date Activated Date Inactivated Comments 10/09/2024 7:35 AM 10/09/2024 1:02 PM * Full Code Date Activated Date Inactivated Comments 05/01/2023 12:59 AM 05/01/2023 7:06 PM Care Teams Welt Beater Relationship Specialty Start [place] [address] [place] [address] PCP - General Internal Medicine 10/27/16
--- OUTSIDE RECORDS SUMMARY | 2025-07-20 17:03 | XMS_ITS | Encounter Summary ---
Author Organization [facility] Address [address] [place] [address] Care Team Providers Care Application Security Developer Name Role Phone Maricruz Grubbs MD Primary Care Provider Encounter Details Date Type Department Care Team (Late st Contact Info) Description 05/13/2005 Outpatient Historical [facility] Services EEG [address] [place] [address] [place] [address] Jaison Amador MD [email or web address] [place] [address] Social History Tobacco Use Types Packs/Day Years Used Date Smoking Tobacco: Never Assessed Comments Unknown Sex and Gender Information Value Date Recorded Sex Assigned at Not on file 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
--- OUTSIDE RECORDS SUMMARY | 2025-07-20 17:03 | XMS_ITS | Encounter Summary ---
Author Organization [facility] Address [address] [facility] Attn: [place] [address] Care Team Providers Care Nuclear Plant Operator Name Role Phone Maricruz Grubbs MD Primary Care Provider [phone] Encounter Details Date Type Department Care Team (Late st Contact Info) Description 10/30/1989 Outpatient Historical Sam Hardy MD NO ADDRESS ON FILE Social History Tobacco Use Types Packs/Day Years Used Date Smoking Tobacco: Never Assessed Comments Unknown Sex and Gender Information Value Date Recorded Sex Assigned at Not on file Legal Sex Female 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
--- OUTSIDE RECORDS SUMMARY | 2025-07-20 17:03 | XMS_ITS | Encounter Summary ---
Author Organization [facility] Address [address] [place] [address] Care Team Providers Care Pit Crew Support Worker Name Role Phone Maricruz rGubbs MD Primary Care Provider [phone] Encounter Details Date Type Department Care Team (Late st Contact Info) Description 07/07/2003 Outpatient Historical [address] 

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
--- OUTSIDE RECORDS SUMMARY | 2025-07-20 17:03 | XMS_ITS | Encounter Summary ---
Author Organization [facility] Address [address] [place] [address] Care Team Providers Care Steamfitter Supervisor Name Role Phone JasminClaus nicole Laura HOFFMAN Primary Care Provider [phone] Encounter Details Date Type Department Care Team (Late Contact Info) Description 10/30/2024 [facility] Message Enc [facility] [address] [address] [place], [facility] Provider test results Social History Tobacco Use Types Packs/Day Years Used Date Smoking Tobacco: Never Smokeless Tobacco: Never Alcohol Use Standard Drinks/Week Comments Yes 1.7 (1 standard drink = 0.6 oz p ure alcohol) 1 bottle PHQ-2 Answer Date Recorded Patient Health Questionnaire-2 Score 0 10/14/2024 Comments No Sex and Gender Information Value Date Recorded Sex Assigned at Female 09/16/2024 1:26 PM OR FIRST ASSIST REGISTERED NURSE Legal Sex Female 8:33 AM OR FIRST ASSIST REGISTERED NURSE Gender Identity Not on file Sexual Orientation Not on file documented as of this encounter Plan of Treatment Upcoming Encounters Date Type Department Care Team (Late Contact Info) Description 11/24/2025 9:00 AM CDT Office Visit [facility] [address], [address] [place] [address] Clem Zhu MD [address] [place] [address] documented as of this encounter Visit Diagnoses Not on filedocumented in this encounter Care Teams Steamfitter Supervisor Relationship Specialty Start Date End Date Claus Watson DO [address] [facility] [address] [place] [address] PCP - General INTERNAL MEDICINE 11/03/24 documented as of this encounter
--- OUTSIDE RECORDS SUMMARY | 2025-07-20 17:03 | XMS_ITS | Encounter Summary ---
Author Organization [facility] Address [address] [place] [address] Care Team Providers Care Streets And Buildings Decorator Name Role Phone Maricruz Grubbs MD Primary Care Provider [phone] Encounter Details Date Type Department Care Team (Latest Contact Info) Description 06/19/2006 Outpatient Historical [facility] NE[facility]YCH[facility] [place] V., PhD 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 Gender Identity Not on file Sexual Orientation Not on file documented as of this encounter Plan of Treatment Not on file documented as of this encounter Visit Diagnoses Diagnosis Generalized convulsive epilepsy without mention of intractable epilepsy ([facility])- Primary Generalized convulsive epilepsy without mention of intractable epilepsy documented in this encounter Care Teams Streets And Buildings Decorator Relationship Specialty [place] [address] [place] [address] PCP - General Internal Medicine 10/27/16 documented as of this encounter
--- OUTSIDE RECORDS SUMMARY | 2025-07-20 17:03 | XMS_ITS | Patient Health Record ---
Author Organization [facility] Address [address] [place] [address] Care Team Providers Care Foreclosure Specialist Name Role Phone Maricruz Grubbs Primary Care Provider Jayson Candelaria Unavailable [phone] Reason For Referral No Information Medications Medication SIG (Take, Route, Fr equency, Duration) Notes Start Date End Date Status Vitamin C Active Vitamin B Complex Ac tive Vitamin D3 Active Keppra Active Eliquis Active Krill Oil Active Multi-Vitamin Active Turmeric Active Social History Tobacco Use: Social History Observation Description Date Details (start date - stop date) Never Smoker NA - NA Social History Drugs/Alcohol: Social Info Question Answer Notes Alcohol Screen Did you have a drink containing alcohol in the past year? Yes How often did you have a drink containing alcohol in the past year? Monthly or less (1 point) Points 1 Interpretation Negative Tobacco Use: Social Info Question Answer Notes Tobacco Use/Smoking Are you a nonsmoker Section Notes: Single. 3 children. Denies a lcohol or tobacco use. Problems Problem Type SNOMED Code ICD Code Onset Dates Problem Status W/U Status Risk Notes Problem Acquired spondylolisthesis (276870501) Spondylolisthesis of lumbar region (M43.16) Active confirmed Plan Of Treatment No Information Insurance Providers Payer Name Payer Address Payer Phone Subscriber Number Group Number Insured Name Patient Relationship to Insured Coverage Start Date Coverage End Date [place] [address] [address] [place] [address] [id number] Layla Reece Self - patient is the insured [employer] [address] [place] [address] [id number] Plan F Layla Reece Self - patient is the insured Medical (General) History Medical History History ICD Code Seizure R56.9 heart murmur cold sore dizzines chest pain depression Anxiety blood clots migraines Surgical History Surgery Date(Month/Year) Hysterectomy Hernia repair Gastric bypass
--- OUTSIDE RECORDS SUMMARY | 2025-07-20 17:03 | XMS_ITS | Encounter Summary ---
Author Organization [facility] Address [address] [place] [address] Care Team Providers Care Professor Of Theology Name Role Phone Maricruz Grubbs MD Primary Care Provider [phone] Encounter Details Date Type Department Care Team (Late st Contact Info) Description 03/06/2005 Outpatient Historical Division of Neurology 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
--- OUTSIDE RECORDS SUMMARY | 2025-07-20 17:03 | XMS_ITS | Clinical Summary ---
Author Organization [facility] Address [address] [place] [address] Care Team Providers Care Spring Setter Name Role Phone Naseem Isaac MD Unavailable Claus Watson DO Primary Care Provider [phone] Source Comments [facility],non-owned Affiliates and Associated Physician Practices is amultiple site organization consisting of ambulatory clinics and hospital sitesin [place], [place], [place] and [place]. This disclosure is being madepursuant to the Care Everywhere program and may not contain all information available regarding this patient. Last updated 18.[facility] Allergies Active Allergy Reactions Criticality Noted Date Comments Yazoo Tar Other Low 02/06/2017 Gets very sick Gets very sick Medications * Be aware that medications may not be up to date on this document. Alwaysverify current medications with the patient. Cholecalciferol (VITAMIN D3 PO) Acti ve Ascorbic Acid 1000 MG Take 1 (one) tablet by mouth once daily Active B Oeybnpo-B-Pvdge Acid (GRANT-ALEXEY RX) 1 MG TABS Take [...] (DESYREL) 100 MG tablet 09/21/19 21 Active fluticasone propionate (Flonase) 50 MCG/ACT nasal spray Byron 2 (two) sprays into each nostril once [...] Encounters Date Type Department Care Team Description 06/16/2025 2:15 PM WARDROBE MISTRESS Office Visit [facility] Surgery [address] [place] [address] [address] [place] [address] Ubaldo Mcnamara MD Right groin mass (Primary Dx) from Last 3 Months Immunizations Immunization Administration [...] 0 Q uit: 01/15/2007 Smokeless Tobacco: Never Tobacco Cessation:Counseling Given: Not Answered Alcohol Use Standard Drinks/Week Comments Yes 0 (1 standard drink = 0.6 oz pur e alcohol) glass of wine qd PHQ-2 Answer Date Recorded Patient Health Questionnaire-2 Score 0 10/08/2023 Comments No Sex and Gender Information Value Date Recorded Sex Assigned at Not on file Legal Sex Female 5:29 AM WARDROBE MISTRESS Gender Identity Not on file Sexual Orientation Not on file 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 Not on file Not on file Not on sukhdev e Last Filed Vital Signs Vital Sign Reading Time Taken Comments Blood Pressure 107/62 06/16/2025 2:14 PM WARDROBE MISTRESS Pulse 60 06/16/2025 2:14 PM WARDROBE MISTRESS Temperature 36.3 C (97.3 F) 05/28/2023 9:28 AM CDT Respiratory Rate 14 05/07/2023 10:43 AM CDT Oxygen Saturation 96% 06/16/2025 2:14 PM WARDROBE MISTRESS Inhaled Oxygen Concentration - - Weight 71.9 kg (158 lb 9.6 oz) 06/16/2025 2:14 P M WARDROBE MISTRESS Height 167.6 cm (5' 6) 06/16/2025 2:14 PM WARDROBE MISTRESS Body Mass Index 25.6 06/16/2025 2:14 PM WARDROBE MISTRESS Plan of Treatment Health Maintenance Due Date [...] this topic Medical Devices Implanted Type Area Security Monitor Device Identifier Shelf Expiration Date Model / Serial / Lot Mesh Srg Prln 6x6in Flt Sq Cstm Knit Implanted:Qty: 1 on 04/30/2023 by Ubaldo Mcnamara MD at [facility] Left: Inguinal [employer] 11/27/2027 PMH / [...] Relevant to Health Maintenance Insurance MEDICARE AETNA [facility] MANAGED MEDICARE ADV Advance Directives Documents on File Type Date Recorded Patient Wine Cellar Stock Clerk Expl anation Adv Directive/Living Will/POA 05/07/2023 [facility] DI RECTIVE & DURABLE POWER OF FOREST FIRE PREVENTION MANAGER FOR HEALTHCARE Care Teams Spring Setter Relationship Specialty Start Date End Date Claus Watson DO [address] [place] [address] PCP - General Internal Medicine 06/16/25 Naseem Isaac MD Neurology 01/16/12
--- OUTSIDE RECORDS SUMMARY | 2025-07-20 17:03 | XMS_ITS | Encounter Summary ---
Author Organization [facility] Address [address] [place] [address] Care Team Providers Care Silk Soaker Name Role Phone Maricruz Grubbs MD Primary Care Provider [phone] Encounter Details Date Type Department Care Team (Late st Contact Info) Description 10/25/2004 Outpatient Historical [address] [place] [address] Katie Rodriguez MD Social History Tobacco Use Types Packs/Day Years Used Date Smoking Tobacco: Never Assessed Comments Unknown Sex and Gender Information Value Date Recorded Sex Assigned at Not on file Legal Sex Female 5:27 AM DRYING ROOM ATTENDANT Gender Identity Not on file Sexual Orientation Not on file documented as of this encounter Last Filed Vital Signs Vital Sign Reading Time Taken Comments Blood Pressure 110/70 10/25/2004 9:45 AM DRYING ROOM ATTENDANT Pulse 68 10/25/2004 9:45 AM DRYING ROOM ATTENDANT Temperature 36.2 C (97.1 F) 10/25/2004 9:45 AM DRYING ROOM ATTENDANT Respiratory Rate - - Oxygen Saturation - - Inhaled Oxygen Concentration - - Weight 75.8 kg (167 lb) 10/25/2004 9:45 AM DRYING ROOM ATTENDANT Height - - Body Mass Index - - documented in this encounter Plan of Treatment Not on file documented as of this encounter Visit Diagnoses Not on filedocumented in this encounter Care Teams Silk Soaker Relationship Specialty [place] [address] [place] [address] PCP - General Internal Medicine 10/27/16 documented as of this encounter
--- OUTSIDE RECORDS SUMMARY | 2025-07-20 17:03 | XMS_ITS | Encounter Summary ---
Author Organization [facility] Address [address] [place] [address] Care Team Providers Care Director Fraud Name Role Phone Maricruz Grubbs MD Primary Care Provider [phone] Encounter Details Date Type Department Care Team (Latest Contact Info) Description 05/13/2005 Outpatient Historical [facility]NOST[facility] Jaison Amador MD [address] [facility] [address] [place] [address] GEN CONVUL EPI W/O MENTN INTRACT ([facility]) (Primary Dx) Social History Tobacco Use Types Packs/Day Years Used Date Smoking Tobacco: Never Assessed Comments Unknown Sex and Gender Information Value Date Recorded Sex Assigned at Not on file Legal Sex Female 5:27 AM DEPARTURE CLERK Gender Identity Not on file Sexual Orientation Not on file documented as of this encounter Plan of Treatment Not on file documented as of this encounter Visit Diagnoses Diagnosis Generalized convulsive epilepsy without mention of intractable epilepsy ([facility])- Primary Generalized convulsive epilepsy without mention of intractable epilepsy documented in this encounter Care Teams Director Fraud Relationship Specialty Start [place] [address] [place] [address] PCP - General Internal Medicine 10/27/16 documented as of this encounter
--- OUTSIDE RECORDS SUMMARY | 2025-07-20 17:03 | XMS_ITS | Encounter Summary ---
Author Organization [facility] Address [address] [place] [address] Care Team Providers Care Nurse Practitioner Name Role Phone Maricruz Grubbs MD Primary Care Provider Encounter Details Date Type Department Care Team (Late st Contact Info) Description 06/14/2006 Outpatient Historical HIS MRI DEPT Jaison Amador MD [address] [facility] [address] [place] [address] Grand Mal, not Intractabl ([facility]) (Primary Dx) Social History Tobacco Use Types Packs/Day Years Used Date Smoking Tobacco: Never Assessed Comments Unknown Sex and Gender Information Value Date Recorded Sex Assigned at Not on file Legal Sex Female 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 Gender Identity Not on file Sexual Orientation Not on file documented as of this encounter Plan of Treatment Not on file documented as of this encounter Visit Diagnoses Diagnosis Generalized convulsive epilepsy without mention of intractable epilepsy ([facility])- Primary Generalized convulsive epilepsy without mention of intractable epilepsy documented in this encounter Care Teams Nurse Practitioner Relationship Specialty Start [place] [address] [place] [address] PCP - General Internal Medicine 10/27/16 documented as of this encounter
--- OUTSIDE RECORDS SUMMARY | 2025-07-20 17:03 | XMS_ITS | Encounter Summary ---
Author Organization [facility] Address [address] [place] [address] Phone Care Team Providers Care Services Executive Name Role Phone Claus Watson DO Primary Care Provider [phone] Encounter Details Date Type Department Care Team [...] on file Legal Sex Female 10:21 PM SENIOR MEDICAL WRITER Gender Identity Female 08/13/2020 8:00 AM SENIOR MEDICAL WRITER Sexual Orientation Straight 08/13/2020 8: 00 AM SENIOR MEDICAL WRITER documented as of this encounter Plan of Treatment Not on file documented as of this encounter Procedures Procedure Name Priority Date/Time Associated Diagnosis Comments SCAN - LABS 05/31/2024 documented in this encounter Results * SCAN - LABS (05/31/2024) us Provider Scanning Final Result documented in this encounter Visit Diagnoses Not on filedocumented in this encounter Care Teams Services Executive Relationship Specialty Start Date End Date Claus Watson DO PCP - General Internal Medicine 04/14/20 documented as of this encounter
--- OUTSIDE RECORDS SUMMARY | 2025-07-20 17:03 | XMS_ITS | Encounter Summary ---
Author Organization [facility] Address [address] [place] [address] Care Team Providers Care Special Education Paraprofessional Name Role Phone Maricruz Grubbs MD Primary Care Provider [phone] Encounter Details Date Type Department Care Team (Late st Contact Info) Description 06/09/2004 Outpatient Historical [address] [place] [address] Katie Rodriguez MD Social History Tobacco Use Types Packs/Day Years Used Date Smoking Tobacco: Never Assessed Comments Unknown Sex and Gender Information Value Date Recorded Sex Assigned at Not on file Legal Sex Female 5:27 AM SACK MAKER Gender Identity Not on file Sexual Orientation Not on file documented as of this encounter Last Filed Vital Signs Vital Sign Reading Time Taken Comments Blood Pressure 128/82 06/09/2004 9:30 AM SACK MAKER Pulse 74 06/09/2004 9:30 AM SACK MAKER Temperature 37 C (98.6 F) 06/09/2004 9:30 AM SACK MAKER Respiratory Rate - - Oxygen Saturation - - Inhaled Oxygen Concentration - - Weight 72.6 kg (160 lb) 06/09/2004 9:30 AM SACK MAKER Height - - Body Mass Index - - documented in this encounter Plan of Treatment Not on file documented as of this encounter Visit Diagnoses Not on filedocumented in this encounter Care Teams Special Education Paraprofessional Relationship Specialty [place] [address] [place] [address] PCP - General Internal Medicine 10/27/16 documented as of this encounter
--- OUTSIDE RECORDS SUMMARY | 2025-07-20 17:03 | XMS_ITS | Encounter Summary ---
Author Organization [facility] Address [address] [place] [address] Care Team Providers Care Leno Sewer Name Role Phone Maricruz Grubbs MD Primary Care Provider Encounter Details Date Type Department Care Team (Late st Contact Info) Description 08/25/2003 Outpatient Historical [address] [place] [address] Katie Rodriguez MD Social History Tobacco Use Types Packs/Day Years Used Date Smoking Tobacco: Never Assessed Comments Unknown Sex and Gender Information Value Date Recorded Sex Assigned at Not on file Legal Sex Female 5:27 AM OCCUPATIONAL THERAPIST'S ASSISTANT Gender Identity Not on file Sexual Orientation Not on file documented as of this encounter Plan of Treatment Not on file documented as of this encounter Visit Diagnoses Not on filedocumented in this encounter Care Teams Leno Sewer Relationship Specialty Start [place] [address] [place] [address] PCP - General Internal Medicine 10/27/16 documented as of this encounter
--- OUTSIDE RECORDS SUMMARY | 2025-07-20 17:03 | XMS_ITS | Encounter Summary ---
Author Organization [facility] Address Formerly [facility] [place] [address] Care Team Providers Care Gravity Prospecting Operator Helper Name Role Phone Perico Menard MD Primary Care Provider [phone] Claus Watson DO Primary Care Provider [phone] Encounter Details Date Type Department Care Team (Late st Contact Info) Description 09/16/2024 MyChart Message Enc [facility] - [address], [address] [place] [address] [phone] Clem Zhu MD [address] [place] [phone] appointment Social History Tobacco Use Types Packs/Day Years Used Date Smoking Tobacco: Never Assessed Comments Unknown Sex and Gender Information Value Date Recorded Sex Assigned at Female 09/16/2024 1:26 PM UNDERWRITING SERVICE REPRESENTATIVE Legal Sex Female 8:33 AM UNDERWRITING SERVICE REPRESENTATIVE Gender Identity Not on file Sexual Orientation Not on file documented as of this encounter Plan of Treatment Upcoming Encounters Date Type Department Care Team (Late st Contact Info) Description 11/24/2025 9:00 AM CDT Office Visit [address], [address] [place] [address] [phone] Clem Zhu MD [address] [place] [phone] documented as of this encounter Visit Diagnoses Not on filedocumented in this encounter Care Teams Gravity Prospecting Operator Helper Relationship Specialty Start Date End Date Perico Menard MD [address] [facility] [place] [address] PCP - General FAMILY PRACTICE 09/16/24 10/20/24 Claus Watson DO [address] [facility] [address] [place] [address] PCP - General INTERNAL MEDICINE 11/03/24 documented as of this encounter
== END 2025-07-20 17:06 | disposition home or self-care (01) ==
PROVIDERS: Emergency Provider Student in an Organized Health Care Education/Training Program; PCP Clinical Nurse Specialist
DX: G40.909 Epilepsy, unspecified, not intractable, without status epilepticus (principal); M81.0 Age-related osteoporosis without current pathological fracture; M06.9 Rheumatoid arthritis, unspecified; M19.90 Unspecified osteoarthritis, unspecified site; F41.9 Anxiety disorder, unspecified; Z98.84 Bariatric surgery status; Z86.718 Personal history of other venous thrombosis and embolism; Z86.711 Personal history of pulmonary embolism; Z87.891 Personal history of nicotine dependence; Z98.49 Cataract extraction status, unspecified eye; Z90.710 Acquired absence of both cervix and uterus; Z79.01 Long term (current) use of anticoagulants; Z79.85 Long-term (current) use of injectable non-insulin antidiabetic drugs; Z79.899 Other long term (current) drug therapy; R94.31 Abnormal electrocardiogram [ECG] [EKG]
CPT/HCPCS: 93005; 99284; A9270